=== PATIENT | male | born 1940 | race Caucasian/White ===

== ENCOUNTER 2017-12-30 13:30 | Outpatient (RCR) | payer MEDICARE, SELFPAY ==
--- NOTE | 2017-11-30 15:56 | PTTR_ITS ---
DATE: 11/30/17 OBJECTIVE: KX applied to all codes Completed cardiovascular conditioning with primary therapist. Vitals taken at start and end of treatment session. See flow sheet for specifics. * X Neuro Re-education - (51111 x2): Continued pt's balance training program. Pt is quite fatigued after cardio training today; modified balance activities according to pt tolerance. Pt requires min assist during static stance without upper extremity support. Pt requires CGA and UEx1 for dynamic stance. Please see flow sheet for specifics. Direct treatment time: 25 minutes Total treatment time: 40 minutes
--- NOTE | 2017-12-02 15:38 | PTTR_ITS ---
DATE: 12/02/17 SUBJECTIVE: Amandeep states that he was very tired after his last session. He does notice his endurance improving, however. Compliant with HEP: x Yes No OBJECTIVE: * x Neuro Re-education - (88852 x3): Patient was instructed in a progressed balance retraining program. His initial BP was 161/106; began with light cardiovascular activity with TM walking, and pt's BP comes down to 150/90. Resumed his balance program, reducing rest periods and working on sustained closed chain activities. He demonstrates obvious fatigue, but overall tolerates well. He does require min A at the trunk during standing trunk rotation on Airex pads, and CG during static and dynamic balance activities. Full progra can be found noted on flow sheet. Direct treatment time: 45 minutes Total treatment time: 45 minutes
--- NOTE | 2017-12-06 13:50 | PTTR_ITS ---
DATE: 12/06/17 OBJECTIVE: Therapeutic procedures (15133g9). * X Provided skilled instruction in proper exercise performance: Pt completed static and dynamic balance activities with CGAx1 and pt utilized the bar when needed. Pt completed LE strengthening as per flow sheet. Pt completed the treadmill/Nu Step for cardio. Pt did require frequent rest periods due to fatigue. * X Other: Vitals were taken please see flow sheet for specifics. Direct treatment time: 45 Total treatment time: 60
--- NOTE | 2017-12-08 13:50 | PTTR_ITS ---
DATE: 12/08/17 SUBJECTIVE: Pt reports that he feels weak today. He states that he did some work this am but he is not sure why he feels so weak today. OBJECTIVE: KX applied to all codes Therapeutic procedures (63996u8). * X Provided skilled instruction in proper exercise performance: Pt completed static and dynamic balance activities in the // bars utilizing the bar with one hand with CGAx1. Pt completed open and closed chain LE strengthening and cardio on the treadmill/ Nu Step. Pt did require frequent rest periods due to fatigue. * X Other: Pt's vitals were taken please see flow sheet for specifics. Direct treatment time: 45 Total treatment time: 60
--- NOTE | 2017-12-13 07:50 | NT_ITS ---
12/13/17 Patient can today's appt stating he fell yesterday and sprained his ankle. He is waiting for a call back from his doctor. /sunitha
--- NOTE | 2017-12-13 13:46 | NT_ITS ---
12/13/17 Pt called to cancel his PT appointment today due to falling and spraining his ankle.
--- NOTE | 2017-12-15 14:30 | NT_ITS ---
12/15/17 Can today's appt SS/dl
--- NOTE | 2017-12-20 13:30 | PN_ITS ---
DATE: December 20, 2017 REFERRING: Dhaval Lou MD REFERRING PROVIDER DIAGNOSIS:: R sided weakness, s/p CVA PHYSICAL THERAPY DIAGNOSIS: Decreased activity tolerance, decreased balance, s/ p CVA REPORTING PERIOD (for progress note and discharge note only): [] SUBJECTIVE: Amandeep presents to the clinic after a 1 week hiatus. He states that he suffered a fall on Tuesday12/13/17. 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 He initially had quite severe ankle pain although was able to independently get himself back home. He saw his PCP yesterday for continued pain and swelling in the R ankle, they recommended that he have it checked here and resume PT services. He states that his pain seems to be improving each day, he has resolving bruising through the foot and ankle. He is unable to localize any specific area of pain stating it is the entire foot and ankle that hurt. He states that he has pain both with weight bearing and at rest with no real difference between the two. He has not been doing anything to manage his symptoms along the lines of icing, etc. . . OBJECTIVE: Posture: Patient demonstrates equalized weight bearing R to L. He continues to demonstrate rounded shoulder, forward head posturing with flattened lumbar lordosis and wide base of support. Gait: Unchanged from baseline, continues to demonstrate a (+) Trendelenburg sign R greater than L. He uses a cane in the L UE. Palpation: Patient has resolving bruising noted throughout the dorsum of the foot and lateral R ankle. He has 1+ pitting edema noted laterally as well as diffuse non-pitting edema throughout the dorsum of the foot and medial ankle. Mild increased warmth vs the L side. Joint accessory motion: Shows gross hypomobility at the R talocrural joint. Mobility between the metatarsals is normal and non-pain producing. Special Tests (indicate): (-) anterior drawer test. He is able to single leg stand on the R without pain reproduction, although requirement of UE support per his baseline. ROM: Dorsiflexion allows 10 degrees R actively, plantar flexion allows 40 degrees although without pain reproduction, has about a 30 degree arc of motion for in/eversion, comparable to his L side. Treatment: Today's session consisted of a re-evaluation followed by instruction in a home exercise program for edema management and early ROM. Re-evaluation charge (KX) modifier to all charges. Treatment time: 20 mins ASSESSMENT: Patient returns for PT intervention after brief hiatus after a fall in the community. He presents with acute ankle pain which has been resolving for the last several days. He is having continued swelling and discomfort although gait mechanics are relatively unchanged and pain is not exacerbated by weight bearing. I anticipate that with some edema management and reintroduction of ROM activities he will tolerate return to PT intervention nicely in the next week or so. I am going to have him work on contrast baths and some gentle ROM for the next week and follow up at that point for introduction of weight bearing activities. G-Codes (add modifier after appropriate code): Patient's demonstrating continued functional limitation is in the category of: * X Mobility - walking and moving around : [id number] Based on last mini best test score of 61% with minor set back due to injury. Projected goal: [id number] KX modifier to be utilized as justified by above documentation for necessity of continued Physical Therapy intervention to attend to functional deficits which have not been fully remediated as they approach their Medicare cap. ST: Patient able to tolerate introduction of strengthening, conditioning program without pain symptoms (MET) 2: Improve overall function as indicated by LEFS score indicating less than 50 % deficit (Progressing towards) LT: Reduce fall risk with mini best test scoring less than 19% deficit (Not Met) . 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 SS/dl
--- NOTE | 2017-12-27 14:00 | PTTR_ITS ---
DATE: 12/27/17 SUBJECTIVE: Amandeep noting that his ankle has been feeling a little bit better. It continues to be sore and pt. states he's fatigued very quickly, even with light walking around his yard and shop. OBJECTIVE: Pt. has decreased swelling through the right ankle and he's utilizing a single point cane in the left UE. KX applied to all codes x * x Neuro Re-education - (83338 x2): Pt. instructed in a modified and light balance program as noted on his flow sheet. He is able to single leg stance on the right side without discomfort noted. He does require UE assist to the parallel bars. He performs small base of support activities, dynamic gait activities within the parallel bars, not utilizing any compliant surfaces today due to recent ankle sprain. Pt. requires multiple rest breaks throughout our session due to fatigue. He ends with 3 minutes of NuStep cycling. Vitals are taken pre and post session; post exercise today he has a BP of 159/107, HR 69. I do have patient sit and rest for a few minutes; he does note being quite tired. After 3 minutes I retake his BP reading 171/119, HR 60. No changes in his symptoms. Again, have him wait another 5 minutes and a third BP reading of 162/104, HR 59. Pt. is ready to leave the clinic. He does know that if he is feeling any symptoms he needs to call his doctor or go the ER. I advise him that he may want to contact his primary care again regarding this. Direct treatment time: 30 min. with an additional 20 minutes of BP readings and resting. LB/kf
--- NOTE | 2017-12-30 14:27 | PTTR_ITS ---
DATE: 12/30/17 SUBJECTIVE: Amandeep states that his ankle is bothering him today. He mowed the lawn yesterday on his rider, and states that using the gas pedal seemed to help his ankle a bit. He's not sure why it's bothering today. OBJECTIVE: KX applied to all codes: x Therapeutic procedures (06563p9). * x HEP review: Progressed to include theraband resisted ankle PREs with green band. Patient was provided with handout for home completion. * x See flow sheet: * x Provided skilled instruction in proper exercise performance: Patient requires CG throughout all closed chain and balance activities. He required frequent rest periods, and BP was monitored closely throughout (all noted on flowsheet) Direct treatment time: 30 minutes Total treatment time: additional time spent with Vanessa Mcqueen PTA
--- NOTE | 2017-12-30 14:38 | PTTR_ITS ---
DATE: 12/30/17 OBJECTIVE: Co-treatment with Sneha Herrera DPT. Please refer to her note for specifics. KX applied to all codes X Therapeutic procedures (65781u5)(KX). Pt performs modified therex program as noted on his flow sheet for light LE strengthening. Attempt further standing strengthening although pt is complaining of significant right ankle pain and we defer. Defer Nustep and other cardiovascular activity due to elevated blood pressure at 151/105. Had pt sit for awhile and repeat blood pressure and the reading was the same. Pt not symptomatic although has pain in the right ankle and is fatigued. Defer further therex. See flow sheet for all details. Direct treatment time: 20 minutes Total treatment time: 20 minutes Vanessa Mcqueen PTA
== END 2017-12-30 23:59 | disposition home or self-care (01) ==
LOC: PT 13:30
PROVIDERS: PCP Internal Medicine; Referring Provider Internal Medicine; Visit Provider Internal Medicine
DX: I69.359 Hemiplegia and hemiparesis following cerebral infarction affecting unspecified side (principal); R26.89 Other abnormalities of gait and mobility
CPT/HCPCS: 97110; 97112; 97164; G8978

== ENCOUNTER 2018-05-04 14:18 | Outpatient (REF) | payer MEDICARE, SELFPAY ==
[2018-05-04 21:11] LABS: Abs Immature Grans 0.01 k/cumm (0.0-0.09); Absolute Basophil Count 0.03 k/cumm (0.0-0.2); Absolute Eosinophil Count 0.16 k/cumm (0.0-0.7); Absolute Lymphocyte Count 0.95 k/cumm (1.2-3.4); Absolute Monocyte Count 0.64 k/cumm (0.11-0.7); Absolute Neutrophil Count 3.47 k/cumm (1.2-6.7); Basophils % 0.6; HCT 48.9 % (40.0-50.0); HGB 16.5 g/dL (13.5-17.5); Immature Grans % 0.2; Lymphocytes % 18.1; Mean Corp. HGB Concentration 33.7 g/dL (32.0-36.0); Mean Corpuscular Hemoglobin 31.7 pg (27.0-33.0); Mean Corpuscular Volume 93.9 fL (80-95); Mean Platelet Volume 11.7 fL (8.0-11.0); Monocytes % 12.2; Neutrophils % 65.9; Platelet Count 187 x1000/uL (130-400); RBC 5.21 m/cumm (4.50-6.00); RBC Distribution Width 14.9 % (11.8-14.1); White Blood Cell Count 5.26 k/cumm (4.4-10.8)
[2018-05-04 21:32] LABS: ALT 24 U/L (12-78); AST 22 U/L (15-37); Albumin 3.9 g/dL (3.4-5.0); Alkaline Phosphatase 81 U/L (46-116); Anion Gap 10.8 mmol/L (3-11); BUN 23 mg/dL (7-18); Bilirubin, Total 1.3 mg/dL (0.2-1.0); CO2 25.2 mmol/L (21.0-32.0); CREATININE 1.37 mg/dL (0.70-1.30); Calcium 9.2 mg/dL (8.5-10.1); Chloride 103 mmol/L (98-107); Estimated GFR 50.52 (mL/min/1.73m2); Glucose 95 mg/dL (70-100); Potassium 4.4 mmol/L (3.5-5.1); Sodium 139 mmol/L (136-145); TSH (W/Ref FT4) 2.23 uIU/mL (0.358-3.74); Total Protein 7.5 g/dL (6.4-8.2)
== END 2018-05-04 14:38 ==
LOC: NCHCN 14:18
PROVIDERS: PCP Internal Medicine; Visit Provider Internal Medicine
DX: R42 Dizziness and giddiness (principal); E03.9 Hypothyroidism, unspecified; I47.2 Ventricular tachycardia; F43.0 Acute stress reaction; I10 Essential (primary) hypertension
CPT/HCPCS: 80053; 84443; 85025

== ENCOUNTER 2018-09-26 15:32 | Outpatient (REF) | payer MEDICARE, SELFPAY ==
[2018-09-26 21:07] LABS: HCT 47.1 % (40.0-50.0); HGB 15.5 g/dL (13.5-17.5); Mean Corp. HGB Concentration 32.9 g/dL (32.0-36.0); Mean Corpuscular Hemoglobin 30.9 pg (27.0-33.0); Mean Platelet Volume 11.7 fL (8.0-11.0); Platelet Count 205 x1000/uL (130-400); RBC 5.01 m/cumm (4.50-6.00); RBC Distribution Width 14.9 % (11.8-14.1); White Blood Cell Count 4.83 k/cumm (4.4-10.8)
[2018-09-26 21:36] LABS: ALT 26 U/L (12-78); AST 17 U/L (15-37); Albumin 3.7 g/dL (3.4-5.0); Alkaline Phosphatase 69 U/L (46-116); Anion Gap 9.9 mmol/L (3-11); BUN 29 mg/dL (7-18); Bilirubin, Total 0.8 mg/dL (0.2-1.0); CO2 26.1 mmol/L (21.0-32.0); CREATININE 1.52 mg/dL (0.70-1.30); Calcium 8.9 mg/dL (8.5-10.1); Chloride 106 mmol/L (98-107); Creatine Kinase 182 U/L (39-308); Estimated GFR 44.69 (mL/min/1.73m2); Glucose 112 mg/dL (70-100); Lipase 146 U/L (73-393); NT-proBNP 193 pg/mL; Potassium 4.6 mmol/L (3.5-5.1); Sodium 142 mmol/L (136-145); TSH (W/Ref FT4) 2.14 uIU/mL (0.358-3.74); Total Protein 7.2 g/dL (6.4-8.2)
== END 2018-09-26 15:52 ==
LOC: NCHCN 15:32
PROVIDERS: PCP Internal Medicine; Visit Provider Internal Medicine
DX: R06.02 Shortness of breath (principal); R53.1 Weakness; R07.9 Chest pain, unspecified; R10.9 Unspecified abdominal pain
CPT/HCPCS: 80053; 82550; 83690; 85027; 83880; 84443

== ENCOUNTER 2018-09-27 11:46 | Outpatient (CLI) | payer MEDICARE, SELFPAY ==
--- NOTE | 2018-09-27 15:14 | DI.RAD_ITS ---
SYMPTOMS/DIAGNOSIS: SHORTNESS OF BREATH, R06.02, FATIGUE, R53.83, COUGH, R05, WEAKNESS X 10 DAYS PA AND LATERAL CHEST: The lungs are free of infiltrate. There is no pleural effusion. The heart is enlarged, unfolding and ectasia of the thoracic aorta are demonstrated. The hilar structures, mediastinum and tracheal air column are intact. SUMMARY: No evidence of acute cardiopulmonary disease. Cardiac enlargement is demonstrated.
== END 2018-09-27 12:06 ==
PROVIDERS: PCP Internal Medicine; Visit Provider Internal Medicine
DX: R06.02 Shortness of breath (principal); R53.83 Other fatigue; R05 Cough; I51.7 Cardiomegaly
CPT/HCPCS: 71046

== ENCOUNTER 2018-12-23 11:12 | Outpatient (CLI) | payer MEDICARE, SELFPAY ==
[2018-12-23 13:07] LABS: Vitamin B12 262 pg/mL (193-986)
[2018-12-24 08:37] LABS: Vitamin D 25 Total 16.4 ng/ml (30-100)
== END 2018-12-23 11:32 ==
PROVIDERS: PCP Internal Medicine; Visit Provider Internal Medicine Sleep Medicine
DX: E55.9 Vitamin D deficiency, unspecified (principal)
CPT/HCPCS: 36415; 82306; 82607

== ENCOUNTER 2019-06-30 21:45 | Inpatient (IN) | payer MEDICARE, SELFPAY ==
[2019-06-30] VITALS (22 sets, daily range): BP systolic 145–187; BP diastolic 81–125; PULSE 51–113; RESP 14–31; TEMP 36.6; O2SAT 84–96
--- NOTE | 2019-06-30 21:30 | DI.CT_ITS ---
EXAM: CT BRAIN NECK CTA CLINICAL HISTORY: LEFT-SIDED STROKE-LIKE SYMPTOMS TECHNIQUE: Axial CT angiography was performed with multi-slice acquisition and multi-planar and/or 3 D reconstructions. COMPARISON: MRI - BRAIN WO CONTRAST from 09/06/2016 HEAD WITHOUT STROKE PROTOCOL from 09/06/2016 MRA NECK WO from 09/06/2016 MPI RESTING AND STRESS from 10/27/2016 FINDINGS: Noncontrast Head CT: No intracranial hemorrhage is seen. There is a large area of decreased attenuat ion in the right middle cerebral artery distribution involving the right parietal lobe and a small po rtion of the right temporal lobe. Findings are consistent with a subacute infarct. Old infarct is a gain noted in the posterior left parietal region as well as left cerebellum. There are prominent whi te matter changes of small vessel disease. The ventricles are unchanged in size and configuration. Th ere is no evidence of skull fracture. CT Angiography of the Neck: Both common carotid arteries are tortuous and deviate medially. There is atherosclerotic plaque at the common carotid bulb and proximal internal carotid arteries. There is no significant stenosis, evidence of dissection or occlusion. The vertebral arteries appear patent. CT Angiography of the Head: The distal internal carotid arteries show heavy calcification and narrowi ng of the supraclinoid segment bilaterally, right greater than left. The middle and posterior cerebr al arteries show diminished caliber throughout. The posterior cerebral arteries also show reduced di ameter and areas of focal severe stenosis. The anterior cerebral arteries appear patent. Distal mike tebral arteries as well as basilar artery show heavy calcification and irregularity and significantly reduced diameter. IMPRESSION: 1. Large subacute infarct in the right middle cerebral artery distribution. 2. Severe atherosclerotic changes of the intracranial vasculature showing multifocal areas of severe stenosis to near occlusion involving the middle cerebral arteries, distal vertebral and basilar marlen ashley as well as posterior cerebral arteries.
--- NOTE | 2019-06-30 21:45 | DI.RAD_ITS ---
EXAM: XR PORTABLE CHEST AP INDICATION: stroke like symptoms. COMPARISON: XR CHEST 2V PA LATERAL from 09/27/2018 TECHNIQUE: 2D digital imaging was performed. FINDINGS: The heart is enlarged. The aorta is tortuous. Leads overlie the chest. No infiltrate, effusion or pulmonary edema is seen. IMPRESSION: Cardiomegaly. No acute abnormality. DATA REPOSITORY: RADIATION DOSE DELIVERED:
--- NOTE | 2019-06-30 21:56 | ED.GENADUL_ITS ---
Discharge Plan Disposition Patient Disposition: [facility] INPATIENT Discharge Details Chief Complaint: CVA/TIA Clinical Impression: Stroke, Rhabdomyolysis Primary Care Provider: Tristen Lou ED Provider: Joe Julien Home Meds and New Rx's Prescriptions: No Action levothyroxine 175 MCG tablet 175 mcg PO DAILY@0730 RF: 0 carvedilol 6.25 MG tablet 12.5 mg PO BID RF: 0 potassium citrate 10 MEQ tablet extended release 1 tab PO HS RF: 0 allopurinol 300 MG tablet 300 mg PO DAILY RF: 0 polyethylene glycol 3350 17 GM powder in packet 17 gm PO DAILY PRN PRN (Reason: Constipation) RF: 0 aspirin 325 MG tablet 325 mg PO DAILY RF: 0 atorvastatin 40 MG tablet 40 mg PO DAILY Qty: 30 RF: 0 irbesartan 150 MG tablet 75 mg PO DAILY Qty: 0 RF: 0 diphenhydramine-acetaminophen [Tylenol PM Extra Strength] 25-500 mg Tablet 1 tab PO QHS PRNRF: 0 Medical Decision Making Upon my evaluation, this patient had a high probability of imminent or life- threatening deterioration, which required my direct attention, intervention, and personal management. I have personally provided 45 minutes of critical care time exclusive of time spent on separately billable procedures. Time includes review of laboratory data, radiology results, discussion with consultants, and monitoring for potential decompensation. Interventions were performed as documented. 78-year-old male with a past medical history of previous stroke with right-sided deficits, known A. fib, thyroid disease, and per family history of ventricular septal defect, however no evidence of this on the echocardiogram on her records, he presents today via EMS for strokelike symptoms. He is unable to report any significant history. History is obtained from family and EMS. Allegedly patient was seen yesterday by caregiver at 2 PM, which was greater than 28 hours ago. At that time he was fine functional. Then today when family went to the house he was noted to be found on the ground, incontinent of urine and feces, with notable deficits unable to get up. On EMS arrival he noted significant left-sided deficits, blood sugar normal, he was tachycardic in A. fib, blood pressure was hypertensive. He was brought to the ER for further management. Patient has no complaints at this time, he does respond to some questions. He denies chest pain, shortness of breath, fever, chills, or other complaints. Patient is currently on no blood thinners. Physical exam demonstrates notable left-sided deficits, mild slurred speech, upward Babinski on the left. Notable left-sided visual deficits. Exam is otherwise relatively unremarkable for evidence of significant concerning trauma. Per family the patient has a history of a VSD but I cannot appreciate this finding on review of records. Differential certainly highest for stroke. We will send for an emergent CT CTA. We will gently rehydrate, evaluate for rhabdo, and currently manage. Records indicate that the patient is DNR/DNI. We will further differentiate this with family. NIH abnormalities: Unable to answer month and age, partial left-sided gaze palsy, partial hemianopia, minor left-sided facial palsy, notable left arm deficit, notable left leg deficit, mild aphasia, mild to moderate dysarthria, left-sided extinction. NIH of 15 11:28 PM Reassessment the patient is actually showing some mild improvements. I feel this is likely secondary to rehydration rather than actual improvement of stroke. Neurologic deficits seem to remain in in place, however his mental status certainly becoming more alert at this time. CT scan show evidence of notable expected right-sided infarct in the right temporal parietal and occipital lobes. This correlates well with his symptomatology. There does appear to be occlusion of the proximal inferior M1 segment of the right MCA as well, compatible with known acute right MCA territory infarct. There is multiple other smaller occlusions and disease throughout. I did contact [facility] and discussed the case with Dr. Nicole. After discussing the patient's neurologic findings, the last known well greater than 24 hours ago, and the CT scan findings, Dr. Nicole recommends against intravascular intervention. He feels that the patient would best be suited for admission here for further management. He does recommend giving full dose aspirin, recommends against heparin therapy at this time. We will contact the hospitalist Dr. Contreras for admission. I discussed all of this with the patient and the patient's family, they agree with the current plan. No additional questions at this time. And after a long discussion family states that the patient has expr essed that he would like to be full code multiple times in the past. We cannot find a COLST form describing his CODE STATUS is DNR/DNI. Will defer to full code at this time. Also of note the patient's laboratory work-up does show a transient elevation in his troponin at 0.07, he does have notable elevation in his CPK at 2300, concerning for rhabdo. We will continue to hydrate. He is producing urine. Will monitor urine output closely. 11:36 PM Spoke with hospitalist Dr. Contreras, he agrees to the assessment and plan. Patient will be admitted for further management. I have extensively reviewed the treatment plan with the patient. I have addressed all patient concerns at this time. I have also discussed the plan with the admitting physician and they agree with the current assessment and plan and have agreed to assume responsibility for the patient. All parties demonstrate verbal understanding and agreement with our assessment and plan at this time. EKG 22: 17 Rate 101, MI 222, QTc 425, QRS 98, sinus tachycardia with first-degree AV block, multiple PVCs, no significant ST elevations or depressions, less than 1 mm elevation in lead III. No reciprocal depressions. Minimal subtle less than a millimeter depression in aVL. No evidence of STEMI FINDINGS: Lungs: Unremarkable. No consolidation. Pleural space: Unremarkable. No pleural effusion. No pneumothorax. Heart/Mediastinum: Prominent mediastinum, likely due to portable technique and suboptimal inspiration. Borderline heart size. Vasculature: Atherosclerotic aortic arch. Tortuous aorta. Bones/joints: Degenerative changes within acromioclavicular joints and thoracic spine. IMPRESSION: No large infiltrates or effusions. Thank you for allowing us to participate in the care of your patient. Dictated and Authenticated by: Carlitos Holbrook MD 06/30/2019 10:55 PM Eastern Time ([place] & [place]) HPI General Date/Time Provider Initiated Documentation: 06/30/19 22:20 . HPI Narrative: 78-year-old male with a past medical history of previous stroke with right-sided deficits, known A. fib, thyroid disease, and per family history of ventricular septal defect, however no evidence of this on the echocardiogram on her records, he presents today via EMS for strokelike symptoms. He is unable to report any significant history. History is obtained from family and EMS. Allegedly patient was seen yesterday by caregiver at 2 PM, which was greater than 28 hours ago. At that time he was fine functional. Then today when family went to the house he was noted to be found on the ground, incontinent of urine and feces, with notable deficits unable to get up. On EMS arrival he noted significant left-sided deficits, blood sugar normal, he was tachycardic in A. fib, blood pressure was hypertensive. He was brought to the ER for further management. Patient has no complaints at this time, he does respond to some questions. He denies chest pain, shortness of breath, fever, chills, or other complaints. Patient is currently on no blood thinners. Related Data Home Medications Medication Instructions Recorded Confirmed allopurinol 300 mg PO DAILY 09/06/16 06/30/19 carvedilol 12.5 mg PO BID 09/06/16 09/06/16 levothyroxine 175 mcg PO DAILY@0730 09/06/16 06/30/19 potassium citrate 1 tab PO HS 09/06/16 06/30/19 aspirin 325 mg PO DAILY tab 09/08/16 06/30/19 atorvastatin 40 mg PO DAILY #30 tablet 09/08/16 irbesartan 75 mg PO DAILY #0 09/08/16 06/30/19 polyethylene glycol 3350 17 gm PO DAILY PRN PRN packet 09/08/16 06/30/19 diphenhydramine-acetaminophen 1 tab PO QHS PRN 06/30/19 06/30/19 [Tylenol PM Extra Strength] Previous Rx's Medication Instructions Recorded aspirin 325 mg PO DAILY tab 09/08/16 atorvastatin 40 mg PO DAILY #30 tablet 09/08/16 irbesartan 75 mg PO DAILY #0 09/08/16 polyethylene glycol 3350 17 gm PO DAILY PRN PRN packet 09/08/16 Allergies Allergy/AdvReac Type Severity Reaction Status Date / Time amlodipine Allergy Unverified 06/30/19 22:55 enalapril Allergy Unverified 06/30/19 22:53 hydrochlorothiazide Allergy Unverified 06/30/19 22:54 [From Hyzaar] losartan [From Hyzaar] Allergy Unverified 06/30/19 22:54 meperidine [From Demerol] AdvReac Severe Other (See Unverified 06/30/19 22:16 Comment) General Stated Complaint: CVA/TIA EDI: 2 Review of Systems All systems reviewed & are unremarkable except as noted in HPI and below [facility] Medical History (Updated 06/30/19 @ 23:47 by Calvin Contreras) Stroke (Chronic) Social History Smoking/Tobacco Use Status: Never Alcohol Intake: current Alcohol Intake frequency: a few times a month Alcohol type: beer Substance use type: does not use Do you feel safe in your relationship?: Yes Exam Narrative Exam Narrative: 1.Const: Obese, incontinent of stool and urine 2.Eyes: PERRL, no conjunctival injection, and symmetrical lids. Notable visual deficit on left side. 3.ENT: Atraumatic external nose and ears. Moist MM. Neck: Symmetric, trachea midline, No thyromegaly. There is no evidence of raccoon eyes, hill sign, CSF rhinorrhea, mastoid tenderness, cranial crepitus, hemotympanum, exophthalmos, or hyphema. Patient demonstrates intact dentition with no signs of tooth avulsion or fracture, no signs of jaw deformity, no evidence of a LeFort's fracture, with an intact palate, nose and orbital region. There is no evidence of a nasal septal hematoma. No proptosis. Jaw closes symmetrically. Airway is clear. 4.CVS: +S1/S2, No murmurs or gallops. Peripheral pulses 2+ and equal in all extremities. Brisk capillary refill in all extremities. Regular rate and rhythm, Normal s1 and s2. No murmurs, carotid bruits, rubs, or gallops. Radial pulses 2+ bilaterally and symmetric. Dorsalis pedis pulses 2+ bilaterally and symmetric. 2+ capillary refill. No evidence of distant heart sounds. No extremity edema. No evidence of gross hemorrhage. 5.RESP: Unlabored respiratory effort. Clear to auscultation bilaterally. No wheezes rales or rhonchi airway clear, no obstructions. No abrasions or ecchymosis. Chest movement symmetric with respirations. No chest wall tenderness. Trachea midline. No crepitus. No step offs. No paradoxical movements. Lungs are clear to auscultation bilaterally. No rales, rhonchi, wheezing or stridor. Breath sound symmetric. No Sucking chest wounds. No clinical evidence of significant chest trauma. 6.GI: Soft, Nontender/Nondistended, No hepatosplenomegaly. No guarding or rebound. Uncircumcised male, continent of stool and urine. No genital tenderness. 7.MSK: Normocephalic/Atraumatic, Extremities w/o deformity or ttp. No cyanosis or clubbing. Mild bruising on the left lower back and hip. No tenderness. Pelvis stable to compression. 8.Skin: Warm, Dry. No rashes or lesions. 9.Neuro: Notable left-sided neglect and visual deficits. Unable to significantly quantify secondary to current mental state. Upper extremities demonstrate 5-5 strength for the right upper extremity able to hold it up for greater than 5 seconds with no significant drift. Demonstrates 3 out of 5 strength of the right lower extremity and able to hold it up for 3 to 4 seconds. Sensation appears intact. Good plumbing designer strength. Left upper extremity demonstrates near total paralysis with 1 out of 5 strength, unable to plumbing designer. He is able to slightly move the left upper extremity. Left lower extremity demonstrates upward Babinski, notable weakness, he is able to slightly move his toes and leg and just small movements. Speech pattern is deficient with slight slurring of words. Unable to perform any other significant neurologic exam testing secondary to current state. GCS is 15 NIH abnormalities: Unable to answer month and age, partial left-sided gaze palsy, partial hemianopia, minor left-sided facial palsy, notable left arm deficit, notable left leg deficit, mild aphasia, mild to moderate dysarthria, left-sided extinction. NIH of 15 10.Psych: (AAO) x1 Course Vital Signs Vital signs: Vital Signs Temperature 36.6 C 06/30/19 21:49 Pulse 111 H 06/30/19 21:49 Respiratory Rate 06/30/19 21:49 Blood Pressure 149/104 H 06/30/19 21:49 Pulse Oximetry 96 06/30/19 21:49 Temperature 36.6 C 06/30/19 21:49 Pulse 111 H 06/30/19 21:49 Respiratory Rate 06/30/19 21:49 Blood Pressure 149/104 H 06/30/19 21:49 Pulse Oximetry 96 06/30/19 21:49 Pain Level 2 06/30/19 21:49 Lab/Test Results Lab/Test Results: 06/30/19 21:53 Blood Blood Culture - Pending 06/30/19 21:53 Blood Blood Culture - Pending
[2019-06-30 22:06] LABS: Abs Immature Grans 0.02 k/cumm (0.0-0.09); Absolute Basophil Count 0.02 k/cumm (0.0-0.2); Absolute Eosinophil Count 0.06 k/cumm (0.0-0.7); Absolute Monocyte Count 0.64 k/cumm (0.11-0.7); Absolute Neutrophil Count 10.06 k/cumm (1.2-6.7); Basophils % 0.2; Eosinophils % 0.5; HCT 51.7 % (40.0-50.0); HGB 17.6 g/dL (13.5-17.5); Immature Grans % 0.2 %; Lymphocytes % 6.9; Mean Corpuscular Hemoglobin 31.2 pg (27.0-33.0); Mean Corpuscular Volume 91.7 fL (80-95); Mean Platelet Volume 11.9 fL (8.0-11.0); Monocytes % 5.5; Neutrophils % 86.7; Platelet Count 275 x1000/uL (130-400); RBC 5.64 m/cumm (4.50-6.00); RBC Distribution Width 15.3 % (11.8-14.1)
[2019-06-30] MEDS: Omnipaque 350 MG/ML 100 ML BTL IJ (22:19)
[2019-06-30 22:25] LABS: INR 1.1 (0.9-1.1); PTT Activated 24.6 sec (21.0-31.4); Prothrombin Time 11.3 sec (9.3-11.0)
[2019-06-30 22:32] LABS: ALT 44 U/L (16-63); AST 73 U/L (15-37); Albumin 4.3 g/dL (3.4-5.0); Alkaline Phosphatase 90 U/L (46-116); Anion Gap 14.5 mmol/L (3-11); BUN 34 mg/dL (7-18); Bilirubin, Total 2.5 mg/dL (0.2-1.0); CO2 23.5 mmol/L (21.0-32.0); CREATININE 1.69 mg/dL (0.70-1.30); Calcium 9.6 mg/dL (8.5-10.1); Chloride 104 mmol/L (98-107); Estimated GFR 39.55 (mL/min/1.73m2); Glucose 139 mg/dL (74-106); NT-proBNP 974 pg/mL (<300); Potassium 4.5 mmol/L (3.5-5.1); Sodium 142 mmol/L (136-145); TSH (W/Ref FT4) 1.96 uIU/mL (0.36-3.74); Total Protein 8.8 g/dL (6.4-8.2)
[2019-06-30] MEDS: Normal Saline 500 ML IV (22:34)
[2019-06-30 22:37] LABS: Creatine Kinase 2300 U/L (39-308); Troponin I 0.07 ng/Ml (<0.06)
[2019-06-30 22:49] LABS: Bilirubin Small (Negative); Blood Small (Negative); Clarity Clear (Clear); Glucose Negative (Negative); Ketones Trace mg/dL (Negative); Leukocyte Esterase Negative (Negative); Nitrite Negative (Negative); Specific Gravity >= 1.030 (1.005-1.025); Urobilinogen 0.2 EU/dL (Up TO 0.2); pH 5.5 (5-8)
[2019-06-30] MEDS: Normal Saline 1,000 ML 1000 ML IV (22:49)
[2019-06-30 22:55] LABS: Bacteria Negative HPF (Negative); C & S Indicated? No; Casts Negative LPF (Negative); Crystals Negative HPF (Negative); Epithelial Cells Rare HPF (Negative); Mucus Moderate (Negative); RBC 0-2 HPF (0-2)
--- NOTE | 2019-06-30 22:55 | DI.VRAD_ITS ---
PROCEDURE INFORMATION: Exam: XR Chest, 1 View Exam date and time: 06/30/2019 10:23 PM Age: 78 years old Clinical indication: Other: Stroke like symptoms TECHNIQUE: Imaging protocol: XR of the chest Views: 1 view. COMPARISON: No relevant prior studies available. FINDINGS: Lungs: Unremarkable. No consolidation. Pleural space: Unremarkable. No pleural effusion. No pneumothorax. Heart/Mediastinum: Prominent mediastinum, likely due to portable technique and suboptimal inspiration. Borderline heart size. Vasculature: Atherosclerotic aortic arch. Tortuous aorta. Bones/joints: Degenerative changes within acromioclavicular joints and thoracic spine. IMPRESSION: No large infiltrates or effusions. Dictated and Authenticated by: Carlitos Holbrook MD. Ordering:PIA Diaz MD
[2019-06-30 23:10] LABS: BE (Venous) -3.1 mmol/L (-3-3); HCO3 (Venous) 22 mmol/L (22-28); O2 Sat (Venous) 68 % (70-80); TCO2 (Venous) 19 mmol/L (22-29); pCO2 (Venous) 38 mm/Hg (34-47); pH (Venous) 7.38 (7.35-7.45); pO2 (Venous) 36 mm/Hg (28-44)
[2019-06-30 23:14] LABS: Lactate 2.4 mmol/L (0.6-1.4)
--- NOTE | 2019-06-30 23:21 | DI.VRAD_ITS ---
PROCEDURE INFORMATION: Exam: CT Angiography Head With Contrast Exam date and time: 06/30/2019 10:03 PM Age: 78 years old Clinical indication: Other: Left-sided stroke like symptoms; Patient HX: Left sided stroke like symptoms TECHNIQUE: Imaging protocol: Computed tomography angiography of the head with intravenous contrast. 3D rendering: MIP and/or 3D reconstructed images were created by the technologist. COMPARISON: CT HEAD WITHOUT STROKE PROTOCOL 09/06/2016 10:09 AM FINDINGS: Right internal carotid artery: Extensive atherosclerotic calcifications with narrowing of the supraclinoid segment. No aneurysm. Right anterior cerebral artery: Unremarkable. No occlusion or significant stenosis. No aneurysm. Right middle cerebral artery: There is complete occlusion of the inferior M2 segment of the right MCA (image 538, series 12). Right posterior cerebral artery: There is short segment occlusion of the P2 segment of the right posterior cerebral artery (image 518, series 12). There is a origin of the right posterior cerebral artery. No aneurysm. Right vertebral artery: Diffuse atherosclerotic calcification with multifocal narrowing. No aneurysm. Left internal carotid artery: Extensive atherosclerotic calcification is noted. Intracranial segment is patent with no significant stenosis. No aneurysm. Left anterior cerebral artery: Unremarkable. No occlusion or significant stenosis. No aneurysm. Left middle cerebral artery: There is high-grade stenosis of the proximal M1 segment of the left MCA. No aneurysm. Left posterior cerebral artery: There is narrowing at the junction of the P1 and P2 segment of the left SENIOR TERADATA DEVELOPER. No aneurysm. Left vertebral artery: There is multifocal occlusion of the left vertebral artery associated with diffuse atherosclerotic calcification. No aneurysm. Basilar artery: The basilar artery is irregular in contour with multifocal high-grade stenoses. No aneurysm. IMPRESSION: 1. Occlusion of the proximal inferior M1 segment of the right MCA, compatible with known acute right MCA territory infarct. 2. Short segment occlusion of the P2 segment of the right [employer]ENIOR TERADATA DEVELOPER. 3. 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 4. 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 5. Atherosclerotic narrowing within the left SENIOR TERADATA DEVELOPER. PROCEDURE INFORMATION: Exam: CT Head Without Contrast Exam date and time: 06/30/2019 10:03 PM Age: 78 years old Clinical indication: Other: Left-sided stroke like symptoms; Patient HX: Left sided stroke like symptoms TECHNIQUE: Imaging protocol: Computed tomography of the head without contrast. Other technique: STROKE PROTOCOL was implemented. COMPARISON: CT HEAD WITHOUT STROKE PROTOCOL 09/06/2016 10:09 AM FINDINGS: Limitations: There is motion artifact, limiting evaluation at the lower aspect of the scan. Brain: There is a large acute infarct involving the right posterior temporal lobe, right parietal lobe and to a lesser extent in the right occipital lobe. There is associated mass effect on the adjacent brain parenchyma without evidence of midline shift. There are patchy regions of hypodensity in the periventricular and subcortical white matter, likely on the basis of chronic microvascular ischemic disease. A remote infarct is seen in the left parietal and left temporal lobes. Ventricles: The ventricles and sulci are prominent in size, which is likely related to global cerebral volume loss. Bones/joints: Unremarkable. No acute fracture. Sinuses: There is mucosal thickening in the left maxillary and bilateral ethmoid sinuses. Mastoid air cells: Visualized mastoid air cells are well aerated. Mastoid air cells: Visualized mastoid air cells are well aerated. Soft tissues: Unremarkable. Vasculature: There are extensive atherosclerotic calcifications at the bilateral carotid siphons. IMPRESSION: 1. Large acute infarct involving the right temporal, parietal and occipital lobes. 2. No acute intracranial hemorrhage or midline shift. ASSESSMENT: ASPECTS ([place] Stroke Program Early CT Score) is 7. PROCEDURE INFORMATION: Exam: CT Angiography Neck With Contrast Exam date and time: 06/30/2019 10:03 PM Age: 78 years old Clinical indication: Other: Left-sided stroke like symptoms; Patient HX: Left sided stroke like symptoms TECHNIQUE: Imaging protocol: Computed tomography angiography of the neck with intravenous contrast. 3D rendering: MIP and/or 3D reconstructed images were created by the technologist. COMPARISON: CT HEAD WITHOUT STROKE PROTOCOL 09/06/2016 10:09 AM FINDINGS: VASCULATURE: Right common carotid artery: There is a retropharyngeal course. No stenosis. No dissection or occlusion. Right internal carotid artery: Atherosclerotic plaque is noted at the bifurcation and proximal internal carotid artery without hemodynamically significant stenosis. No dissection or occlusion. Right external carotid artery: Unremarkable. No occlusion or stenosis of the origin. Right vertebral artery: Unremarkable. No stenosis. No dissection or occlusion. Left common carotid artery: There is a retropharyngeal course. No stenosis. No dissection or occlusion. Left internal carotid artery: Atherosclerotic plaque is noted at the bifurcation and proximal internal carotid artery without hemodynamically significant stenosis. No dissection or occlusion. Left external carotid artery: Unremarkable. No occlusion or stenosis of the origin. Left vertebral artery: Unremarkable. No stenosis. No dissection or occlusion. NECK: Bones/joints: No acute fracture. Soft tissues: Normal. No significant soft tissue swelling. Lungs: A calcified granuloma is seen in the right upper lobe. IMPRESSION: No arterial occlusion or hemodynamically significant stenosis in the neck. No dissection or pseudoaneurysm. COMMENTS: 1. Using NASCET method for measuring degree of carotid artery stenosis: Mild is less than 50% stenosis. Moderate is 50-69% stenosis. Severe is 70-94% stenosis. Near occlusion is 95-99% stenosis. 2. THIS REPORT CONTAINS FINDINGS THAT MAY BE CRITICAL TO PATIENT CARE. The findings were verbally communicated via telephone conference with ALEXSANDER ANN at 10:42 PM EST on 06/30/2019. The findings were acknowledged and understood. Dictated and Authenticated by: Lizbeth Terrell MD. Ordering:PIA Diaz MD
[2019-06-30] MEDS: Normal Saline 1,000 ML 200 ML IV (23:38)
[2019-06-30] MEDS: Aspirin 300 MG SUPP PR (23:41)
--- NOTE | 2019-06-30 23:44 | HPE_ITS ---
Date of service: 06/30/19 Time of Service: 23:45 Assessment and Plan Assessment and plan (1) Stroke: Start date: 06/30/19 Status: Acute Assessment and plan: This is a 78-year-old gentleman who had an acute right MCA thrombotic stroke at home more than a day prior to being found by his family. He also has rhabdomyolysis have been down at home with some inco ntinence of urine and stool showed that he had been on the floor for some time. He has no bruising or complaints of body aches. He denies any headache. He has had some return of his left lower extremity after lower extremity being flaccid upon admission and having some movement against gravity presently. He will have an MRI when available and will need rehabilitation. He is a full code at this time but this needs to be investigated with patient having the status of DNR/DNI previously. He was reported to have possible atrial fibrillation in the field but this is not been manifested in the hospital with cardiac monitoring. He does have frequent unifocal PVCs. He did bump his troponin into the intermediate zone and this has remained stable. This is most likely a secondary event. With the history of PFO we need to consider embolic event with further studies ordered. We will continue cardiac monitoring. His CODE STATUS does need to be confirmed. Qualifiers: CVA mechanism: embolism Laterality of affected vessel: right Precerebral and cerebral artery: middle cerebral artery Qualified Code(s): I63.411 - Cerebral infarction due to embolism of right middle cerebral artery (2) Rhabdomyolysis: Start date: 06/30/19 Status: Acute Assessment and plan: Patient had an elevated CPK upon admission having been on the floor at home for some time. We will continue IV hydration and follow-up CPK is trending clear there is rhabdomyolysis avoid kidney injury. He did have findings elevation in his renal function upon admission. Qualifiers: Encounter type: initial encounter Rhabdomyolysis type: traumatic Qualified Code(s): T79.6XXA - Traumatic ischemia of muscle, initial encounter (3) Essential hypertension: Status: Chronic Assessment and plan: Will continue permissive HTN treatment and reassess as observe with ibersartan beng held. History of Present Illness History of Present Illness Chief Complaint: Left-sided weakness Narrative: This is a 78-year-old gentleman who lives alone and is generally functioning independently who was found at home by his family after greater than a 28-hour p eriod of time of not being checked on by his family. He was down on the floor with left-sided weakness and incontinence of urine and stool. Was brought to the ED for evaluation and was found by CT scan to have a right MCA thrombotic stroke distribution with no hemorrhage. He also had rhabdomyolysis having been down on the floor several hours. He had no injuries and had no complaints of headache or chest pain. The EMS did note a rapid ventricular response of about 160 with probable atrial fibrillation with no history of dysrhythmia in this patient. He was on Coreg in the past and it is possible that the record is not up to date. In the ED he had sinus rhythm with sinus tachycardia and frequent unifocal PVCs which persisted through the night. He did have a slight bump in his troponin which did not change with serial enzymes. The patient is a poor historian but is more awake and alert after IV hydration in the ED. He also is beginning to have some movement in his left arm and leg which was flaccid previously. Patient's family was not present at the time of my exam but were in the ED and stated that the patient was not a DNR/DNI and wanted to be a full code with the patient not able to confirm this discrepancy therefore he remains a Full Code upon admission. Review of Systems Narrative: 13 point review of systems otherwise unrevealing or stable/unobtainable. [facility] Medical History (Updated 07/01/19 @ 07:46 by Calvin Contreras) Essential hypertension (Chronic) Hyperlipidemia (Acute) Hypothyroid (Chronic) RYAN (obstructive sleep apnea) (Chronic) PFO (patent foramen ovale) (Inactive) Stroke (Chronic) Social History Smoking/Tobacco Use Status: Never Alcohol Intake: current Alcohol Intake frequency: a few times a month Alcohol type: beer Substance use type: does not use Do you feel safe in your relationship?: Yes Meds Home Medications and Allergies Home Medications Medication Instructions Recorded Confirmed Type allopurinol 300 mg PO DAILY 09/06/16 06/30/19 History levothyroxine 175 mcg PO DAILY@0730 09/06/16 06/30/19 History potassium citrate 1 tab PO HS 09/06/16 06/30/19 History aspirin 325 mg PO DAILY tab 09/08/16 06/30/19 Rx irbesartan 75 mg PO DAILY #0 09/08/16 06/30/19 Rx polyethylene glycol 3350 17 gm PO DAILY PRN PRN packet 09/08/16 06/30/19 Rx diphenhydramine-acetaminophen 1 tab PO QHS PRN 06/30/19 06/30/19 History [Tylenol PM Extra Strength] Allergies Allergy/AdvReac Type Severity Reaction Status Date / Time amlodipine Allergy Unverified 06/30/19 22:55 enalapril Allergy Unverified 06/30/19 22:53 hydrochlorothiazide Allergy Unverified 06/30/19 22:54 [From Hyzaar] losartan [From Hyzaar] Allergy Unverified 06/30/19 22:54 meperidine [From Demerol] AdvReac Severe Other (See Unverified 06/30/19 22:16 Comment) Exam Narrative Exam Narrative: General: Patient appears appropriate for stated age, obese and in no acute distress though he does have some difficulty speaking being awakened prior to my exam. He is alert and oriented at least to person and place. HEENT: Normocephalic with coarsened facial features and puffiness but no edema, eyes with pupils equal and reactive to light symmetrically, extraocular movement intact and sclera anicteric. Oropharynx with slightly dry oral mucosa. Patient does have CPAP mask in place. External ears normal. Neck: Supple without JVD. No auscultated bruits. Back: Stooped posture without CVA tenderness. Lungs: Clear to auscultation and percussion. Heart: Regularly irregular rhythm with frequent extrasystole and normal rate. No murmurs or gallops appreciated. Abdomen: Obese contour, soft and nontender to palpation with no palpable hepatosplenomegaly. Bowel sounds positive and normoactive in all quadrants. Genitalia/rectal: Exam deferred. Extremities: Nonpitting edema over lower extremities with fair capillary refill and peripheral pulses intact. No cyanosis or clubbing. Mild osteoarthritic brannon nges of all joints. Skin: Pale, warm and dry. Actinic changes over sun exposed areas. Neuro: Patient has decreased motor strength left upper and lower extremity movement against gravity only been 2 out of 5 strength. Normal motor strength on the right side. Patient is speaking normally but drowsy having just awakened. Other Babinski on the left and negative Babinski on the right. Cranial nerves II through XII appear to be grossly intact but gag reflex was not tested. He was wearing his CPAP mask. Cerebellar testing was not performed and sensory testing was grossly intact. Patient is ignoring left side. Psych: Patient appears possibly some short-term memory deficits long-term memory appears to be grossly intact. Patient has reported normal mood and affect prior to stroke. Results Imaging Imaging Studies: Exam: CT Angiography Head With Contrast Exam date and time: 06/30/2019 10:03 PM Age: 78 years old Clinical indication: Other: Left-sided stroke like symptoms; Patient HX: Left sided stroke like symptoms TECHNIQUE: Imaging protocol: Computed tomography angiography of the head with intravenous contrast. 3D rendering: MIP and/or 3D reconstructed images were created by the technologist. COMPARISON: CT HEAD WITHOUT STROKE PROTOCOL 09/06/2016 10:09 AM FINDINGS: Right internal carotid artery: Extensive atherosclerotic calcifications with narrowing of the supraclinoid segment. No aneurysm. Right anterior cerebral artery: Unremarkable. No occlusion or significant stenosis. No aneurysm. Right middle cerebral artery: There is complete occlusion of the inferior M2 segment of the right MCA (image 538, series 12). Right posterior cerebral artery: There is short segment occlusion of the P2 segment of the right posterior cerebral artery (image 518, series 12). There is a origin of the right posterior cerebral artery. No aneurysm. Right vertebral artery: Diffuse atherosclerotic calcification with multifocal narrowing. No aneurysm. Left internal carotid artery: Extensive atherosclerotic calcification is noted. Intracranial segment is patent with no significant stenosis. No aneurysm. Left anterior cerebral artery: Unremarkable. No occlusion or significant stenosis. No aneurysm. Left middle cerebral artery: There is high-grade stenosis of the proximal M1 segment of the left MCA. No aneurysm. Left posterior cerebral artery: There is narrowing at the junction of the P1 and P2 segment of the left LUMBER CUTTER. No aneurysm. Left vertebral artery: There is multifocal occlusion of the left vertebral artery associated with diffuse atherosclerotic calcification. No aneurysm. Basilar artery: The basilar artery is irregular in contour with multifocal high-grade stenoses. No aneurysm. IMPRESSION: 1. Occlusion of the proximal inferior M1 segment of the right MCA, compatible with known acute right MCA territory infarct. 2. Short segment occlusion of the P2 segment of the right LUMBER CUTTER. 3. 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 4. 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 5. Atherosclerotic narrowing within the left LUMBER CUTTER. PROCEDURE INFORMATION: Exam: CT Head Without Contrast Exam date and time: 06/30/2019 10:03 PM Age: 78 years old Clinical indication: Other: Left-sided stroke like symptoms; Patient HX: Left sided stroke like symptoms TECHNIQUE: Imaging protocol: Computed tomography of the head without contrast. Other technique: STROKE PROTOCOL was implemented. COMPARISON: CT HEAD WITHOUT STROKE PROTOCOL 09/06/2016 10:09 AM FINDINGS: Limitations: There is motion artifact, limiting evaluation at the lower aspect of the scan. Brain: There is a large acute infarct involving the right posterior temporal lobe, right parietal lobe and to a lesser extent in the right occipital lobe. There is associated mass effect on the adjacent brain parenchyma without evidence of midline shift. There are patchy regions of hypodensity in the periventricular and subcortical white matter, likely on the basis of chronic microvascular ischemic disease. A remote infarct is seen in the left parietal and left temporal lobes. Ventricles: The ventricles and sulci are prominent in size, which is likely related to global cerebral volume loss. Bones/joints: Unremarkable. No acute fracture. Sinuses: There is mucosal thickening in the left maxillary and bilateral ethmoid sinuses. Mastoid air cells: Visualized mastoid air cells are well aerated. Mastoid air cells: Visualized mastoid air cells are well aerated. Soft tissues: Unremarkable. Vasculature: There are extensive atherosclerotic calcifications at the bilateral carotid siphons. IMPRESSION: 1. Large acute infarct involving the right temporal, parietal and occipital lobes. 2. No acute intracranial hemorrhage or midline shift. ASSESSMENT: ASPECTS ([place] Stroke Program Early CT Score) is 7. PROCEDURE INFORMATION: Exam: CT Angiography Neck With Contrast Exam date and time: 06/30/2019 10:03 PM Age: 78 years old Clinical indication: Other: Left-sided stroke like symptoms; Patient HX: Left sided stroke like symptoms TECHNIQUE: Imaging protocol: Computed tomography angiography of the neck with intravenous contrast. 3D rendering: MIP and/or 3D reconstructed images were created by the technologist. COMPARISON: CT HEAD WITHOUT STROKE PROTOCOL 09/06/2016 10:09 AM FINDINGS: VASCULATURE: Right common carotid artery: There is a retropharyngeal course. No stenosis. No dissection or occlusion. Right internal carotid artery: Atherosclerotic plaque is noted at the bifurcation and proximal internal carotid artery without hemodynamically significant stenosis. No dissection or occlusion. Right external carotid artery: Unremarkable. No occlusion or stenosis of the origin. Right vertebral artery: Unremarkable. No stenosis. No dissection or occlusion. Left common carotid artery: There is a retropharyngeal course. No stenosis. No dissection or occlusion. Left internal carotid artery: Atherosclerotic plaque is noted at the bifurcation and proximal internal carotid artery without hemodynamically significant stenosis. No dissection or occlusion. Left external carotid artery: Unremarkable. No occlusion or stenosis of the origin. Left vertebral artery: Unremarkable. No stenosis. No dissection or occlusion. NECK: Bones/joints: No acute fracture. Soft tissues: Normal. No significant soft tissue swelling. Lungs: A calcified granuloma is seen in the right upper lobe. IMPRESSION: No arterial occlusion or hemodynamically significant stenosis in the neck. No dissection or pseudoaneurysm. COMMENTS: 1. Using NASCET method for measuring degree of carotid artery stenosis: Mild is less than 50% stenosis. Moderate is 50-69% stenosis. Severe is 70-94% stenosis. Near occlusion is 95-99% stenosis. 2. THIS REPORT CONTAINS FINDINGS THAT MAY BE CRITICAL TO PATIENT CARE. The findings were verbally communicated via telephone conference with ALEXSANDER ANN at 10:42 PM EST on 06/30/2019. The findings were acknowledged and understood. Dictated and Authenticated by: Lizbeth Terrell MD. Exam: XR Chest, 1 View Exam date and time: 06/30/2019 10:23 PM Age: 78 years old Clinical indication: Other: Stroke like symptoms TECHNIQUE: Imaging protocol: XR of the chest Views: 1 view. COMPARISON: No relevant prior studies available. FINDINGS: Lungs: Unremarkable. No consolidation. Pleural space: Unremarkable. No pleural effusion. No pneumothorax. Heart/Mediastinum: Prominent mediastinum, likely due to portable technique and suboptimal inspiration. Borderline heart size. Vasculature: Atherosclerotic aortic arch. Tortuous aorta. Bones/joints: Degenerative changes within acromioclavicular joints and thoracic spine. IMPRESSION: No large infiltrates or effusions. Dictated and Authenticated by: Carlitos Holbrook MD. Labs Result diagrams: 07/01/19 05:25 07/01/19 05:25 Labs: Laboratory Results - last 24 hr 06/30/19 06/30/19 06/30/19 21:24 21:24 21:24 WBC 11.60 H RBC 5.64 Hgb 17.6 H Hct 51.7 H MCV 91.7 MCH 31.2 MCHC 34.0 RDW 15.3 H Plt Count 275 MPV 11.9 H Immature Gran % 0.2 Neutrophils % 86.7 Lymphocytes % 6.9 Monocytes % 5.5 Eosinophils % 0.5 Basophils % 0.2 Absolute Neutrophils 10.06 H Absolute Lymphocytes 0.80 L Absolute Monocytes 0.64 Absolute Eosinophils 0.06 Absolute Basophils 0.02 PT 11.3 H INR 1.1 APTT 24.6 VBG pH VBG pCO2 VBG pO2 VBG HCO3 VBG Total CO2 VBG O2 Saturation VBG Base Excess Sodium 142 Potassium 4.5 Chloride 104 Carbon Dioxide 23.5 Anion Gap 14.5 H BUN 34 H Creatinine 1.69 H Estimated GFR/1.73 m2 39.55 Glucose 139 H Lactate Calcium 9.6 Total Bilirubin 2.5 H AST 73 H ALT 44 Alkaline Phosphatase 90 Creatine Kinase 2300 H Troponin I 0.07 NT-Pro-B Natriuret Pep 974 H Total Protein 8.8 H Albumin 4.3 TSH 1.96 Urine Color Urine Clarity Urine pH Ur Specific [place] Urine Protein Urine Ketones Urine Blood Urine Nitrite Urine Bilirubin Urine Urobilinogen Ur Leukocyte Esterase Urine RBC Urine WBC Ur Epithelial Cells Urine Crystals Urine Bacteria Urine Casts Urine Mucus Ur Culture Indicated? Urine Glucose 06/30/19 06/30/19 06/30/19 22:40 23:00 23:00 WBC RBC Hgb Hct MCV MCH MCHC RDW Plt Count MPV Immature Gran % Neutrophils % Lymphocytes % Monocytes % Eosinophils % Basophils % Absolute Neutrophils Absolute Lymphocytes Absolute Monocytes Absolute Eosinophils Absolute Basophils PT INR APTT VBG pH 7.38 VBG pCO2 38 VBG pO2 36 VBG HCO3 22 VBG Total CO2 19 L VBG O2 Saturation 68 L VBG Base Excess -3.1 L Sodium Potassium Chloride Carbon Dioxide Anion Gap BUN Creatinine Estimated GFR/1.73 m2 Glucose Lactate 2.4 H* Calcium Total Bilirubin AST ALT Alkaline Phosphatase Creatine Kinase Troponin I NT-Pro-B Natriuret Pep Total Protein Albumin TSH Urine Color Yellow Urine Clarity Clear Urine pH 5.5 Ur Specific [place] >= 1.030 H Urine Protein 100 H Urine Ketones Trace H Urine Blood Small H Urine Nitrite Negative Urine Bilirubin Small H Urine Urobilinogen 0.2 Ur Leukocyte Esterase Negative Urine RBC 0-2 Urine WBC 3-5 Ur Epithelial Cells Rare Urine Crystals Negative Urine Bacteria Negative Urine Casts Negative Urine Mucus Moderate Ur Culture Indicated? No Urine Glucose Negative Last Vital Signs Temp 36.6 C 06/30/19 21:49 Pulse 97 H 06/30/19 23:01 Resp 23 06/30/19 23:10 BP 187/111 H 06/30/19 23:01 Pulse Ox 93 L 06/30/19 23:10
[2019-07-01] VITALS (13 sets, daily range): BP systolic 144–189; BP diastolic 87–113; PULSE 50–114; RESP 16–22; TEMP 36.4–38.3; O2SAT 95–97
[2019-07-01] MEDS: Heparin 5,000 UNITS/ML VIAL 5000 UNITS SC ×3 (01:40→15:47)
[2019-07-01 01:59] LABS: Troponin I 0.08 ng/Ml (<0.06)
[2019-07-01 05:43] LABS: HCT 43.2 % (40.0-50.0); Mean Corp. HGB Concentration 34.7 g/dL (32.0-36.0); Mean Corpuscular Hemoglobin 31.8 pg (27.0-33.0); Mean Corpuscular Volume 91.7 fL (80-95); Mean Platelet Volume 11.2 fL (8.0-11.0); Platelet Count 194 x1000/uL (130-400); RBC 4.71 m/cumm (4.50-6.00); RBC Distribution Width 15.4 % (11.8-14.1); White Blood Cell Count 9.75 k/cumm (4.4-10.8)
[2019-07-01 05:53] LABS: Magnesium 1.9 mg/dL (1.8-2.4)
[2019-07-01 05:57] LABS: ALT 36 U/L (16-63); AST 54 U/L (15-37); Albumin 3.2 g/dL (3.4-5.0); Alkaline Phosphatase 67 U/L (46-116); Anion Gap 11.6 mmol/L (3-11); BUN 32 mg/dL (7-18); Bilirubin, Total 1.9 mg/dL (0.2-1.0); CO2 21.4 mmol/L (21.0-32.0); CREATININE 1.29 mg/dL (0.70-1.30); Calcium 8.1 mg/dL (8.5-10.1); Chloride 110 mmol/L (98-107); Estimated GFR 54.01 (mL/min/1.73m2); Glucose 113 mg/dL (74-106); Sodium 143 mmol/L (136-145); Total Protein 6.8 g/dL (6.4-8.2)
[2019-07-01 06:02] LABS: Troponin I 0.08 ng/Ml (<0.06)
[2019-07-01 06:08] LABS: Creatine Kinase 1309 U/L (39-308)
[2019-07-01] MEDS: Normal Saline 1,000 ML 200 ML IV ×2 (06:25→10:22)
--- NOTE | 2019-07-01 08:34 | DI.US_ITS ---
APPROVED REPORT EXAM: Comprehensive 2D, Doppler, and color-flow Echocardiogram Patient Location: In-Patient Room/Bed: [address] [employer] Professor: Lizy Watt RDCS (AE) Indications: PFO with acute right CVA Conclusion Left Ventricle : The left ventricle is normal size. Left ventricular systolic function is normal. Mi ld concentric left ventricular hypertrophy. There is normal LV segmental wall motion. Transmitral Do ppler flow pattern suggests impaired LV relaxation. LVEF is 50-54%. Right Ventricle : Right ventricle is not well visualized. Atria : Left atrium is mildly dilated. The right atrium size is normal. Saline bubble contrast intrav enous injection demonstrates PFO. Valves: There are no hemodynamically significant valvular lesions. Great Vessels : The aortic root size is dilated. The ascending aorta is mildly dilated. The IVC was not visualized. Compared to echocardiogram from 09/08/2016: There is now evidence of a patent foramen ovale. The prio r study does not appear to have been done with bubble contrast. Wall motion Left Ventricle The left ventricle is normal size. Left ventricular systolic function is normal. Mild concentric left ventricular hypertrophy. There is normal LV segmental wall motion. Transmitral Doppler flow pattern suggests impaired LV relaxation. LVEF is 50-54%. Right Ventricle Right ventricle is not well visualized. Atria Left atrium is mildly dilated. The right atrium size is normal. Saline bubble contrast intravenous in jection demonstrates PFO. Aortic Valve Aortic valve is grossly normal in structure. There is no aortic valvular stenosis. Trace aortic regur gitation. Mitral Valve The mitral valve is normal in structure. No evidence of mitral valve stenosis. Trace mitral regurgita tion. Tricuspid Valve The tricuspid valve is normal in structure. There is no tricuspid valve stenosis. Trace tricuspid reg urgitation. Pulmonic Valve Pulmonic valve is not well visualized. There is no pulmonic valvular stenosis. Great Vessels The aortic root size is dilated. The ascending aorta is mildly dilated. The IVC was not visualized. Pericardium There is no pericardial effusion. No pleural effusion. Small right pleural effusion. Moderate right p leural effusion. Large right pleural effusion. Small left pleural effusion. Moderate left pleural eff usion. Large left pleural effusion. Ascites is present. Large left pleural effusion. Moderate left pl eural effusion. Small left pleural effusion. Large right pleural effusion. Moderate right pleural eff usion. Small right pleural effusion. No pleural effusion. 2D Dimensions IVSD d PLAX 1.23 cm M: 0.6-1.2 LV Vol A2C d MOD 143.1 mL LVPW d PLAX 1.27 cm M: 0.6 - 1.2 LV Vol A4C d MOD 132.5 mL LVID d PLAX 5.12 cm M: 4.2 - 5.8 LA vol/ BSA A2C s A-L 34.2 mL/m2 LVDs 4.25 cm M: 2.5 - 4.0 LA vol/ BSA A4C s A-L 36.3 mL/m2 Ao Root d 3.91 cm M: 3.1 - 3.7 LA Vol/ BSA Biplane s A-L 39.3 mL/m2 Ao Asc Diam d 3.64 cm M: 2.6 - 3.4 LA Area A4C s MOD 25.84 cm2 LV EF Teichholz 34.3 % LA Area A2C s MOD 22.49 cm2 LVEF (Nava's) 53.19 % M: 52 - 72 LV EF A4C MOD 49.8 % LV Volume 101.51 mL M: 62 - 150 LV EF A2C MOD 55.5 % LV Volume Index 46.56 mL/m2 M: 34 - 74 LV EF Biplane MOD 53.2 % LV Vol Biplane MOD 139.3 mL FS 16.45 % LV Diastology MV E' medial 0.036 (>0.07 m/s) MV E Vmax 1.20 (0.4-1.3 m/s) LV E/e MED 33.45 (<14) MV E' lateral 0.063 (>0.1 m/s) LV E/e LAT 19.15 (<14) MV E/E' medial 33.48 MV E/E' lateral 19.18 Aortic Valve LVOT Area 4.99 cm2 AoV Area Vmax 3.19 cm2 LVOT Vmax 1.04 m/s AoV Area/ BSA (Vmax) 1.46 cm2/m2 LVOT Mean Og. 0.66 m/s MELIDA Mean Og. 2.81 cm2 LVOT Peak Grad 4.4 mmHg MELIDA Mean Og. Index 1.29 cm2/m2 LVOT Mean Grad 2.1 mmHg AR DT 1413 msec LVOT VTI 0.173 m AR PHT 410 msec LVOT Diam s 2.50 cm (M/F) 1.5-2.5 AoV Vmax 1.64 (0.5-1.3 m/s) Velocity Ratio 0.63 AoV Mean Og. 1.17 m/s AoV Peak Grad 10.7 mmHg LVOT SV 86.61 mL AoV Mean Grad 6.1 (<5 mmHg) AoV VTI 0.258 (0.18-0.25 m) AoV Area VTI 3.36 (2.5-4.5 cm2) AoV Area/ BSA (VTI) 1.54 cm/m2 Mitral Valve MV DT 158 (160-240 msec) MV PHT 46 msec MV Area PHT 4.79 cm2 Pulmonary Valve PV Vmax 0.93 (0.5-1.5 m/s) RVOT Peak Gr. 1.62 mmHg PV Peak Grad 3.4 mmHg RVOT Mean Gr. 1.25 mmHg PV Mean Grad 1.9 mmHg RVOT VTI 0.120 m PV VTI 0.140 m RVOT Vmax 0.64 m/s Tricuspid Valve TR Peak Grad 15.4 mmHg TR Vmax 1.97 m/s RA Pressure 3.00 mmHg RVSP (TR) 18.5 mmHg
[2019-07-01 10:41] LABS: Lactate 0.9 mmol/L (0.6-1.4)
[2019-07-01] MEDS: Aspirin 300 MG SUPP PR (11:07)
--- NOTE | 2019-07-01 11:58 | IN_ITS ---
PT Notes Visit Reasons: RIGHT CVA,RHABDOMYOLYSIS,HTN,PAF Date: 07/01/2019 Inpatient Physical Therapy Evaluation Date: 07/01/2019 Referring Doctor: Calvin Contreras MD PT Orders: PT CONSULT: Right CVA, rhabdomyolysis Precautions: Precautions Patient Profile/Admitting Diagnosis: A 78-year-old male who suffered a right CVA resulting in left hemiplegia admitted to the hospital yesterday PMHX: Right CVA with left hemiplegia, rhabdomyolosis, hypertension, hyperlipidemia, hypothyroidism Social History/Home Situation: Lives alone in a two-story house, with his , son, and daughter living nearby. His bedroom is on the second floor, and he needs to climb 10 steps. No steps into the house. He was driving and performing all of his ADLs independently Current Functional Limitations: Requires maximal assist with all bed mobility activities and is unable to stand or ambulate Equipment Owned/DME: Has a combo tub shower with a shower chair and flexible shower hose. He has grab bars around the tub. He generally uses a cane. Subjective: [] Objective: [] General Observation: I enter his room and he is lying partially on his left side. He states that his intentions are going back home Mental Status: Alert and oriented x3 Pain: Complains of interval discomfort throughout the left knee with movement. ROM: His assistive range of motion of his upper extremities are within functional limits without pain on movement. He has mild subluxation of his left humeral head relationship to the acromion due to his proximal weakness. Assistive hip movements are non-irritable and minimal discomfort with movement of the left knee. He is nontender throughout the joint lines of the left knee, patella or proximal tibia. He has hypomobility with the talocrural, subtalar m idtarsal joints but without pain on movement. Strength: Right Upper Extremity: Full motor function of the right upper extremity strength is generally rated -45 Left Upper Extremity: His proximal musculature 0/5, left biceps and triceps and form supinators and pronators are 2/5, EDC, ECR, ECU and FDS and FDP are 1-2/5 Right Lower Extremity: Full motor control -5/5 Left Lower Extremity: His active movement of his left lower extremity but appears to have some influence with synergistic patterning. He is able to work outside these patterns though, such as ankle dorsiflexion toe extension with the knee extended, etc. His strength is generally rated +2/5 Neuro: KJ's triceps are +2, AJ's, biceps, brachioradialis are +1 and symmetrical. Positive Babinski on the left, negative on the right. He has a mild left-sided neglect, proprioceptive loss, and the left hemianopsia. He notes diminished sensation to light touch throughout a stocking glove distribution of the left side. He does not appear to cross the midline to the left when following a finger visually. I am not sure if he is unable to do this or does not quite comprehend the request. I do not detect any significant hypertonicity along the left side Bed Mobility/Transfers: Requires maximal assist with assuming the supine to sitting positions and vice versa. Attempted to stand the patient with a wheeled walker but he had difficulty placing weight on his left lower extremity. He required maximal assist also with changing position in bed. Gait: Unable to stand Balance: [] Static Sitting: Requires mild contact guarding and tendency to list to the left Dynamic Sitting: Easily disrupted Static Standing: Not evaluated Dynamic Standing: Not evaluated Special Tests: Mobility Limitations Standardized Measure [facility] 6 clicks Basic Mobility Inpatient Short Form: Raw Score: Next field 6 [] Standardized Score: 17.07 CMS Score: Next field 100% CMS Modifier: CN Informed Consent/Education: Patient instructed in purpose of PT consult and plan of care. Assessment: Patient is a 78 year old male referred to physical therapy services with the diagnosis of right CVA with left patricio-plegia/paresis. Patient presents with clinical signs and symptoms consistent with diagnosis, as demonstrated by the following impairment level findings: Weakness of the entire left side particularly proximally in the upper extremity with some left-sided neglect and probable proprioceptive loss. The patient is showing signs of some volitional control though, and will see if he regains further spontaneous recovery over the next few days.. Impairments are contributing to the following functional limitations: AMPAC score. Patient is assessed as a high 92915 complexity based on the following: History: See comorbidities and social history Examination: See above for function limitations and impairments Presentation: Unstable Decision Making: High complexity based on his neurological deficit and functional status Goals: Goals X1 week 1. Supine-Sit moderate assist 2. Sit-Supine moderate assist 3. Sit-Stand moderate assist with walker or with safety lifting device 4. Stand-Sit moderate assist with walker 5. Bed-Chair moderate assist with walker or with safety lifting device 6. Chair-Bed moderate assist with walker or with safety lifting device Plan of Care/Treatment Plan: 1-2x/day, 7 days/week x 1 week. Plan of care has been reviewed with the RECORD TABULATING CLERK providing the service under Physical Therapy direction. Initiate Physical Therapy intervention for strengthening, bed mobility, transfers, gait, use of assistive device. DISCHARGE RECOMMENDATIONS: Unable to return to his home situation currently and will require rehabilitation in a supervised environment TREATMENT CODE/TIME: 9716 07/08 7109 Treatment time: 60 minutes Disclaimer: This note was created using [employer] voice recognition software. It was reviewed for major content. However, there may be multiple small discr epancies and errors due to the voice recognition aspects of the software.
[2019-07-01] MEDS: Refresh PLUS Eye Drops 0.4ml OU (12:43)
--- NOTE | 2019-07-01 13:20 | PHA.ADMREV ---
Pharmacy Clinical Review - Admission Clinical Review (Last Updated 07/01/19 @ 07:05 by Calvin Contreras) Stroke (Acute) Rhabdomyolysis (Acute) amlodipine Allergy (Unverified 06/30/19 22:55) enalapril Allergy (Unverified 06/30/19 22:53) hydrochlorothiazide [From Hyzaar] Allergy (Unverified 06/30/19 22:54) losartan [From Hyzaar] Allergy (Unverified 06/30/19 22:54) meperidine [From Demerol] Adverse Reaction (Severe, Unverified 06/30/19 22:16) Other (See Comment) Height 5 ft 8 in Weight 106.2 kg - Renal Dosing Renal Dosing: BUN 32 mg/dL (7-18) H 07/01/19 05:25 Creatinine 1.29 mg/dL (0.70-1.30) 07/01/19 05:25 Medications needing adjustments: Reviewed (est CrCl~ 46 mL/min) - Anticoagulation Anticoagulation: Hgb 15.0 g/dL (13.5-17.5) D 07/01/19 05:25 Hct 43.2 % (40.0-50.0) 07/01/19 05:25 Plt Count 194 x1000/uL (130-400) 07/01/19 05:25 INR 1.1 (0.9-1.1) 06/30/19 21:24 Creatinine 1.29 mg/dL (0.70-1.30) 07/01/19 05:25 Medications: Heparin Therapeutic Anticoagulation: N/A - Opiate Usage Evaluate Pain Scale/Pains Meds: N/A Scheduled Bowel Reg ordered if on Opiates?: Yes - Relevant Labs Sodium 143 mmol/L (136-145) 07/01/19 05:25 Potassium 4.0 mmol/L (3.5-5.1) 07/01/19 05:25 Chloride 110 mmol/L (98-107) H 07/01/19 05:25 Magnesium 1.9 mg/dL (1.8-2.4) 07/01/19 05:25 Electrolytes, C-Reactive P, ESR: Reviewed (Lytes-WNL) - Antimicrobial Stewardship Antibiotic appropriateness: N/A Surgical Abx d/c within 24 hr: N/A De-escalation: N/A Culture review/Resistance: Reviewed (Blood culture pending) IV to PO Switch: N/A - DM Control DM Control: Glucose 113 mg/dL (74-106) H 07/01/19 05:25 Finger Stick Blood Glucose 116 Insulin Dosing: N/A - Heart Failure/CA Heart Failure/CA: Troponin I 0.08 ng/Ml (<0.06) H* 07/01/19 05:25 NT-Pro-B Natriuret Pep 974 pg/mL (<300) H 06/30/19 21:24 EF%, ANTONIA's, B-Blockers, Diuretics: N/A - BP Control BP Control: Blood Pressure 170/90 Blood Pressure 181/98 If elevated: Reviewed (Irbestaran on HOLD while NPO) - Home Meds Home Med List reviewed: Reviewed (Ordered but on HOLD) - Current meds Current Medication Order Review: Reviewed (Patient is unable to feed self and is currently NPO. Oral meds on HOLD)
--- NOTE | 2019-07-01 13:46 | PDOC.CMIN ---
- If Service Date Differs Date of service: 07/01/19 Time of Service: 13:46 Care Management Initial Assess REASON FOR HOSPITALIZATION:: Right CVIA, Rhabdomyolysis, HTN PAST MEDICAL HISTORY/PAST SURGICAL HISTORY:: Medical History. Essential hypertension (Chronic). Hyperlipidemia (Acute). Hypothyroid (Chronic). RYAN (obstructive sleep apnea) (Chronic). PFO (patent foramen ovale) (Inactive). Stroke (Chronic) PREVIOUS FUNCTIONAL STATUS/SOCIAL/FAMILY SUPPORTS:: Tyler lives alone in [place], [place] in a two story home with bedrooms/bathroom upstairs. His , Loren, no longer lives with Amandeep, as they are . She lives closeby. His son, Tyrone lives nearby [employer]ica parts sprayer, and is supportive. His daughter Alexa lives about a mile away from Amandeep. His other daughter Opal lives in [place]. Tyrone is his DPOA. He is independent at baseline, but may require additional support post CVA. CURRENT FUNCTIONAL STATUS:: Tyler was sitting up in bed when CM met with him. He asked to be moved upstairs where he can be closer to a phone. CM explained that he is in the hospital, and he quickly realized his confusion. 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 He also shared his experience of being down on the floor for more than 24 hours, and how that was a scary and difficult experience. CM discussed with him the possiblity of additional support upon discharge. Per PT, he may need a SNF placement for rehab. CM discussed the discharge planning considerations with Tyrone, Amandeep's son, who expressed concern with Amandeep going back to his current home. Tyrone stated that he would be able to have Amandeep live with him in the house he lives mica parts sprayer in [place], which is one level, but he would need additional support. CM will continue to follow. ADVANCE DIRECTIVES:: None on file. Tyrone, son, listed as DPOA. Has patient been provided with information about the portal?: No Did the patient sign up for the portal?: No CODE STATUS:: Full Code INSURANCE COVERAGE / FINANCIAL ISSUES:: [employer] CURRENT HOME/COMMUNITY SERVICES/EQUIPMENT:: Tyler currently has a telephonic case manager in the community, Shae Lopez. PRIMARY CARE PHYSICIAN:: Tristen Lou POTENTIAL DISCHARGE NEEDS:: Per PT, Tyler may benefit from a SNF placement for rehab prior to returning home. PATIENT/FAMILY EDUCATION NEEDS:: Review discharge instructions regarding activity levels and medications, provide resources for SNF placement, discussion of self care needs and goals of care. ANTICIPATED BARRIERS TO DISCHARGE:: None identified at this time. TRANSPORTATION:: Transport TBD by disposition. PLAN:: Tyler will remain at [facility] for continued tests and consults post CVA. Per PT, he may benefit from a SNF placement for a short term rehab prior to returning home. He may need additional support in the home as well. He will have follow up appointments, as recommended. CM will continue to follow.
[2019-07-01] MEDS: Nystatin POWDER 60 GM JAR TP ×2 (13:56→18:33)
--- NOTE | 2019-07-01 15:37 | W.PM.PROGNOT ---
Date of Service Date of service: 07/01/19 Time of Service: 15:40 Subjective Subjective Interval history since last seen: Mr Sosa reports feeling very thirsty. He states his speech is not back to baseline. He requests some water. He has more movement in his LUE/LLE since about 5:30 am. He has had trigeminy on tele, but no Afib. Case discussed with [facility] neurology - because of the size of the stroke, full anticoagulation would increase risk of hemorrhagic conversion at this time and should be deferred for several weeks. He may not even require anticoagulation unless we prove that he has a DVT/PFO/VSD, per [facility] neurology. For now, full dose asa and SC heparin are ok. Will continue to monitor on tele with permissive hypertension. The patient will be seen by speech therapy tomorrow for speech/swallow evals. Until then, will permit thin water only. Continue IVF for rhabdomyolysis. Start statin after CPK normalizes. Will likely need rehab. Palliative care consulted to discuss goals of care. Objective Objective Clinical Data: Abnormal lab results 06/30/19 06/30/19 06/30/19 Range/Units 21:24 21:24 21:24 WBC 11.60 H (4.4-10.8) k/cumm Hgb 17.6 H (13.5-17.5) g/dL Hct 51.7 H (40.0-50.0) % RDW 15.3 H (11.8-14.1) % MPV 11.9 H (8.0-11.0) fL Absolute Neutrophils 10.06 H (1.2-6.7) k/cumm Absolute Lymphocytes 0.80 L (1.2-3.4) k/cumm PT 11.3 H (9.3-11.0) sec VBG Total CO2 (22-29) mmol/L VBG O2 Saturation (70-80) % VBG Base Excess (-3-3) mmol/L Chloride (98-107) mmol/L Anion Gap 14.5 H (3-11) mmol/L BUN 34 H (7-18) mg/dL Creatinine 1.69 H (0.70-1.30) mg/dL Glucose 139 H (74-106) mg/dL Lactate (0.6-1.4) mmol/L Calcium (8.5-10.1) mg/dL Total Bilirubin 2.5 H (0.2-1.0) mg/dL AST 73 H (15-37) U/L Creatine Kinase 2300 H (39-308) U/L Troponin I (<0.06) ng/Ml NT-Pro-B Natriuret Pep 974 H (<300) pg/mL Total Protein 8.8 H (6.4-8.2) g/dL Albumin (3.4-5.0) g/dL Ur Specific [place] (1.005-1.025) Urine Protein (Negative) mg/dL Urine Ketones (Negative) mg/dL Urine Blood (Negative) Urine Bilirubin (Negative) 06/30/19 06/30/19 06/30/19 Range/Units 22:40 23:00 23:00 WBC (4.4-10.8) k/cumm Hgb (13.5-17.5) g/dL Hct (40.0-50.0) % RDW (11.8-14.1) % MPV (8.0-11.0) fL Absolute Neutrophils (1.2-6.7) k/cumm Absolute Lymphocytes (1.2-3.4) k/cumm PT (9.3-11.0) sec VBG Total CO2 19 L (22-29) mmol/L VBG O2 Saturation 68 L (70-80) % VBG Base Excess -3.1 L (-3-3) mmol/L Chloride (98-107) mmol/L Anion Gap (3-11) mmol/L BUN (7-18) mg/dL Creatinine (0.70-1.30) mg/dL Glucose (74-106) mg/dL Lactate 2.4 H* (0.6-1.4) mmol/L Calcium (8.5-10.1) mg/dL Total Bilirubin (0.2-1.0) mg/dL AST (15-37) U/L Creatine Kinase (39-308) U/L Troponin I (<0.06) ng/Ml NT-Pro-B Natriuret Pep (<300) pg/mL Total Protein (6.4-8.2) g/dL Albumin (3.4-5.0) g/dL Ur Specific [place] >= 1.030 H (1.005-1.025) Urine Protein 100 H (Negative) mg/dL Urine Ketones Trace H (Negative) mg/dL Urine Blood Small H (Negative) Urine Bilirubin Small H (Negative) 07/01/19 07/01/19 07/01/19 Range/Units 01:30 05:25 05:25 WBC (4.4-10.8) k/cumm Hgb (13.5-17.5) g/dL Hct (40.0-50.0) % RDW 15.4 H (11.8-14.1) % MPV 11.2 H (8.0-11.0) fL Absolute Neutrophils (1.2-6.7) k/cumm Absolute Lymphocytes (1.2-3.4) k/cumm PT (9.3-11.0) sec VBG Total CO2 (22-29) mmol/L VBG O2 Saturation (70-80) % VBG Base Excess (-3-3) mmol/L Chloride 110 H (98-107) mmol/L Anion Gap 11.6 H (3-11) mmol/L BUN 32 H (7-18) mg/dL Creatinine (0.70-1.30) mg/dL Glucose 113 H (74-106) mg/dL Lactate (0.6-1.4) mmol/L Calcium 8.1 L (8.5-10.1) mg/dL Total Bilirubin 1.9 H (0.2-1.0) mg/dL AST 54 H (15-37) U/L Creatine Kinase (39-308) U/L Troponin I 0.08 H* (<0.06) ng/Ml NT-Pro-B Natriuret Pep (<300) pg/mL Total Protein (6.4-8.2) g/dL Albumin 3.2 L (3.4-5.0) g/dL Ur Specific [place] (1.005-1.025) Urine Protein (Negative) mg/dL Urine Ketones (Negative) mg/dL Urine Blood (Negative) Urine Bilirubin (Negative) 07/01/19 07/01/19 Range/Units 05:25 05:25 WBC (4.4-10.8) k/cumm Hgb (13.5-17.5) g/dL Hct (40.0-50.0) % RDW (11.8-14.1) % MPV (8.0-11.0) fL Absolute Neutrophils (1.2-6.7) k/cumm Absolute Lymphocytes (1.2-3.4) k/cumm PT (9.3-11.0) sec VBG Total CO2 (22-29) mmol/L VBG O2 Saturation (70-80) % VBG Base Excess (-3-3) mmol/L Chloride (98-107) mmol/L Anion Gap (3-11) mmol/L BUN (7-18) mg/dL Creatinine (0.70-1.30) mg/dL Glucose (74-106) mg/dL Lactate (0.6-1.4) mmol/L Calcium (8.5-10.1) mg/dL Total Bilirubin (0.2-1.0) mg/dL AST (15-37) U/L Creatine Kinase 1309 H (39-308) U/L Troponin I 0.08 H* (<0.06) ng/Ml NT-Pro-B Natriuret Pep (<300) pg/mL Total Protein (6.4-8.2) g/dL Albumin (3.4-5.0) g/dL Ur Specific [place] (1.005-1.025) Urine Protein (Negative) mg/dL Urine Ketones (Negative) mg/dL Urine Blood (Negative) Urine Bilirubin (Negative) Vital Signs Temperature 37.4 C 07/01/19 15:13 Temperature Source Tympanic 07/01/19 15:13 Pulse 50 L 07/01/19 15:13 Pulse Rhythm Regular 07/01/19 08:42 Pulse 94 H 07/01/19 00:01 Respiratory Rate 16 07/01/19 15:13 Respiratory Effort Non-Labored 07/01/19 08:42 Respiratory Depth Normal 07/01/19 08:42 Respiratory Pattern Normal 07/01/19 08:42 Blood Pressure 189/106 H 07/01/19 15:13 Blood Pressure Mean 105 07/01/19 00:01 Pulse Oximetry 97 07/01/19 15:13 Oxygen Delivery Method Room Air 07/01/19 15:13 Oxygen Flow Rate 0 07/01/19 15:13 Pain Level 0 07/01/19 08:14 Intake & Output 06/30/19 07/01/19 07/01/19 23:59 11:59 23:59 Intake Total 500 / 500 2890 / 2890 Output Total 490 / 490 Balance 500 / 500 2400 / 2400 Weight 106.2 kg 106.2 kg Intake: IV 500 / 500 2790 / 2790 Oral 100 / 100 Output: Urine 490 / 490 Other: Urine Color Dark Carmelita Light Carmelita Urine Appearance Clear Clear Stool Size Small Stool Characteristics Soft Soft Formed Brown Voiding Methods Incontinent Laboratory Results WBC 9.75 k/cumm (4.4-10.8) 07/01/19 05:25 RBC 4.71 m/cumm (4.50-6.00) 07/01/19 05:25 Hgb 15.0 g/dL (13.5-17.5) D 07/01/19 05:25 Hct 43.2 % (40.0-50.0) 07/01/19 05:25 MCV 91.7 fL (80-95) 07/01/19 05:25 MCH 31.8 pg (27.0-33.0) 07/01/19 05:25 MCHC 34.7 g/dL (32.0-36.0) 07/01/19 05:25 RDW 15.4 % (11.8-14.1) H 07/01/19 05:25 Plt Count 194 x1000/uL (130-400) 07/01/19 05:25 MPV 11.2 fL (8.0-11.0) H 07/01/19 05:25 Immature Gran % 0.2 % 06/30/19 21:24 Neutrophils % 86.7 06/30/19 21:24 Lymphocytes % 6.9 06/30/19 21:24 Monocytes % 5.5 06/30/19 21:24 Eosinophils % 0.5 06/30/19 21:24 Basophils % 0.2 06/30/19 21:24 Absolute Neutrophils 10.06 k/cumm (1.2-6.7) H 06/30/19 21:24 Absolute Lymphocytes 0.80 k/cumm (1.2-3.4) L 06/30/19 21:24 Absolute Monocytes 0.64 k/cumm (0.11-0.7) 06/30/19 21:24 Absolute Eosinophils 0.06 k/cumm (0.0-0.7) 06/30/19 21:24 Absolute Basophils 0.02 k/cumm (0.0-0.2) 06/30/19 21:24 PT 11.3 sec (9.3-11.0) H 06/30/19 21:24 INR 1.1 (0.9-1.1) 06/30/19 21:24 APTT 24.6 sec (21.0-31.4) 06/30/19 21:24 VBG pH 7.38 (7.35-7.45) 06/30/19 23:00 VBG pCO2 38 mm/Hg (34-47) 06/30/19 23:00 VBG pO2 36 mm/Hg (28-44) 06/30/19 23:00 VBG HCO3 22 mmol/L (22-28) 06/30/19 23:00 VBG Total CO2 19 mmol/L (22-29) L 06/30/19 23:00 VBG O2 Saturation 68 % (70-80) L 06/30/19 23:00 VBG Base Excess -3.1 mmol/L (-3-3) L 06/30/19 23:00 Sodium 143 mmol/L (136-145) 07/01/19 05:25 Potassium 4.0 mmol/L (3.5-5.1) 07/01/19 05:25 Chloride 110 mmol/L (98-107) H 07/01/19 05:25 Carbon Dioxide 21.4 mmol/L (21.0-32.0) 07/01/19 05:25 Anion Gap 11.6 mmol/L (3-11) H 07/01/19 05:25 BUN 32 mg/dL (7-18) H 07/01/19 05:25 Creatinine 1.29 mg/dL (0.70-1.30) 07/01/19 05:25 Estimated GFR/1.73 m2 54.01 (mL/min/1.73m2) 07/01/19 05:25 Glucose 113 mg/dL (74-106) H 07/01/19 05:25 Lactate 0.9 mmol/L (0.6-1.4) 07/01/19 10:34 Calcium 8.1 mg/dL (8.5-10.1) L 07/01/19 05:25 Magnesium 1.9 mg/dL (1.8-2.4) 07/01/19 05:25 Total Bilirubin 1.9 mg/dL (0.2-1.0) H 07/01/19 05:25 AST 54 U/L (15-37) H 07/01/19 05:25 ALT 36 U/L (16-63) 07/01/19 05:25 Alkaline Phosphatase 67 U/L (46-116) 07/01/19 05:25 Creatine Kinase 1309 U/L (39-308) H 07/01/19 05:25 Troponin I 0.08 ng/Ml (<0.06) H* 07/01/19 05:25 NT-Pro-B Natriuret Pep 974 pg/mL (<300) H 06/30/19 21:24 Total Protein 6.8 g/dL (6.4-8.2) 07/01/19 05:25 Albumin 3.2 g/dL (3.4-5.0) L 07/01/19 05:25 TSH 1.96 uIU/mL (0.36-3.74) 06/30/19 21:24 Urine Color Cancelled 07/01/19 02:22 Urine Clarity Cancelled 07/01/19 02:22 Urine pH Cancelled 07/01/19 02:22 Ur Specific [place] Cancelled 07/01/19 02:22 Urine Protein Cancelled 07/01/19 02:22 Urine Ketones Cancelled 07/01/19 02:22 Urine Blood Cancelled 07/01/19 02:22 Urine Nitrite Cancelled 07/01/19 02:22 Urine Bilirubin Cancelled 07/01/19 02:22 Urine Urobilinogen Cancelled 07/01/19 02:22 Ur Leukocyte Esterase Cancelled 07/01/19 02:22 Urine RBC 0-2 HPF (0-2) 06/30/19 22:40 Urine WBC 3-5 HPF (0-5) 06/30/19 22:40 Ur Epithelial Cells Rare HPF (Negative) 06/30/19 22:40 Urine Crystals Negative HPF (Negative) 06/30/19 22:40 Urine Bacteria Negative HPF (Negative) 06/30/19 22:40 Urine Casts Negative LPF (Negative) 06/30/19 22:40 Urine Mucus Moderate (Negative) 06/30/19 22:40 Ur Culture Indicated? No 06/30/19 22:40 Urine Glucose Cancelled 07/01/19 02:22
[2019-07-01] MEDS: Normal Saline 1,000 ML 150 ML IV ×2 (16:31→22:47)
--- NOTE | 2019-07-01 20:00 | DI.RAD_ITS ---
EXAM: XR PORTABLE CHEST AP INDICATION: new onset fever. COMPARISON: XR PORTABLE CHEST AP from 06/30/2019 TECHNIQUE: 2D digital imaging was performed. FINDINGS: Heart is enlarged and the aorta is tortuous, unchanged. Leads overlie the chest. No infiltrate or e ffusion is identified. There is no evidence pulmonary edema. IMPRESSION: No acute abnormality. DATA REPOSITORY: RADIATION DOSE DELIVERED:
[2019-07-01] MEDS: Acetaminophen 650 MG SUPP PR (20:06)
[2019-07-01] MEDS: Metoprolol 5 MG/5 ML VIAL 2.5 MG IVP (20:07)
--- NOTE | 2019-07-01 20:31 | DI.VRAD_ITS ---
PROCEDURE INFORMATION: Exam: XR Chest, 1 View Exam date and time: 07/01/2019 8:02 PM Age: 78 years old Clinical indication: Patient HX: New onset fever, HX R CVA, concern for aspiration per nurse TECHNIQUE: Imaging protocol: XR of the chest Views: 1 view. COMPARISON: XR PORTABLE CHEST AP 06/30/2019 10:20 PM FINDINGS: Lungs: No acute lung infiltrates or consolidation. No edema. 5 mm calcified right upper lobe granuloma. Pleural space: Unremarkable. No pleural effusion. No pneumothorax. Heart/Mediastinum: Moderate cardiomegaly. Stable since chest x-ray yesterday. 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 IMPRESSION: 1. No acute infiltrates or consolidation. Stable chest x-ray since 06/30/2019. 2. Cardiomegaly. Dictated and Authenticated by: Ryan Hernandez MD. Ordering:CASSIDY Simpson MD
[2019-07-02] VITALS (16 sets, daily range): BP systolic 149–197; BP diastolic 86–123; PULSE 73–110; RESP 18–26; TEMP 36.4–39; O2SAT 92–97
--- NOTE | 2019-07-02 | DI.US_ITS ---
EXAM: US UPPER EXTREMITY VENOUS LT CLINICAL HISTORY: edema LLE TECHNIQUE: Ultrasound performed using standard protocol. COMPARISON: No exams were available for comparison FINDINGS: The jugular vein is free of thrombus. The veins of the arm are freely compressible. No deep venous thrombosis or superficial thrombosis is seen. There is no localized fluid collection. IMPRESSION: Negative left upper extremity ultrasound. DATA REPOSITORY:
--- NOTE | 2019-07-02 | DI.US_ITS ---
EXAM: US EXTREMITY VENOUS BI CLINICAL HISTORY: PFO with acute right CVA, ? DVT. TECHNIQUE: Lower extremity venous ultrasound performed using grayscale, color-flow, and spectral Dop pler analysis. COMPARISON: No exams were available for comparison FINDINGS: Right lower extremity: The common femoral, femoral and popliteal veins demonstrate normal compressibi lity, augmentation, and color Doppler. The posterior tibial veins are patent. The saphenous vein appe ars free of thrombus. No Hopkins's cyst or hematoma is seen. Left lower extremity: The common femoral, femoral and popliteal veins demonstrate normal compressibil ity, augmentation, and color Doppler. The posterior tibial veins are patent. The saphenous vein appea rs free of thrombus. There is a small Hopkins's cyst measuring 3.7 x 1.1 x 2.5 cm. IMPRESSION: No evidence of DVT. Small left popliteal cyst. DATA REPOSITORY:
[2019-07-02] MEDS: Heparin 5,000 UNITS/ML VIAL 5000 UNITS SC ×4 (00:26→23:45)
[2019-07-02] MEDS: Metoprolol 5 MG/5 ML VIAL 2.5 MG IVP (02:04)
[2019-07-02] MEDS: Acetaminophen 650 MG SUPP PR ×2 (04:31→23:47)
[2019-07-02] MEDS: Normal Saline 1,000 ML 150 ML IV ×3 (05:02→21:38)
[2019-07-02 06:46] LABS: Absolute Basophil Count 0.01 k/cumm (0.0-0.2); Absolute Eosinophil Count 0.52 k/cumm (0.0-0.7); Absolute Lymphocyte Count 0.44 k/cumm (1.2-3.4); Absolute Monocyte Count 0.94 k/cumm (0.11-0.7); Absolute Neutrophil Count 8.01 k/cumm (1.2-6.7); Basophils % 0.1; Eosinophils % 5.2; HCT 43.2 % (40.0-50.0); HGB 14.7 g/dL (13.5-17.5); Lymphocytes % 4.4; Mean Corpuscular Hemoglobin 31.5 pg (27.0-33.0); Mean Corpuscular Volume 92.5 fL (80-95); Mean Platelet Volume 11.7 fL (8.0-11.0); Monocytes % 9.4; Neutrophils % 79.9; RBC 4.67 m/cumm (4.50-6.00); RBC Distribution Width 15.3 % (11.8-14.1); White Blood Cell Count 10.02 k/cumm (4.4-10.8)
[2019-07-02 07:08] LABS: Hemoglobin A1C 5.6 % (3.8-5.6)
[2019-07-02 07:15] LABS: Anion Gap 15.7 mmol/L (3-11); BUN 26 mg/dL (7-18); CO2 17.3 mmol/L (21.0-32.0); CREATININE 1.43 mg/dL (0.70-1.30); Calcium 8.3 mg/dL (8.5-10.1); Chloride 111 mmol/L (98-107); Creatine Kinase 450 U/L (39-308); Estimated GFR 47.95 (mL/min/1.73m2); Glucose 107 mg/dL (74-106); Magnesium 1.8 mg/dL (1.8-2.4); Sodium 144 mmol/L (136-145); TSH (W/Ref FT4) 1.79 uIU/mL (0.36-3.74)
[2019-07-02 07:20] LABS: Diff Comment PLT Morph Reviewed; Platelet Count 119 x1000/uL (130-400); RBC Morphology Normal
[2019-07-02 07:27] LABS: Calculated LDL 63 mg/dL (<100); Cholesterol 116 mg/dL (<200); HDL Cholesterol 32 mg/dL (40-60); Triglyceride 109 mg/dL (<150)
[2019-07-02] MEDS: Nystatin POWDER 60 GM JAR TP ×3 (08:21→20:09)
[2019-07-02 08:45] LABS: Lactate 0.8 mmol/L (0.6-1.4)
--- NOTE | 2019-07-02 08:47 | OT.INIE ---
Occupational Therapy Notes Inpatient Occupational Therapy Evaluation Date: 07/02/19 Referring Doctor: Belkis Toth MD OT Orders: Non-Urgent: Limited Ability Precautions: Fall, Standard PATIENT PROFILE/ADMITTING DIAGNOSIS: Pt is a 78 year old male who presented to the ER on 06/30/19 by EMS, after his son found him in his home on the floor. It was reported that he fell out of bed sometime within the 24-48 hours after his caregiver had left. Pt was admitted to [facility] for CVA/TIA with a dx of stroke/Rhabdomyolysis. Past Medical History- Medical History (Updated 06/30/19 @ 23:47 by Calvin Contreras) Stroke (Chronic) Social History/Home Situation: Pt lived in a private home in [place] and was recently from his who lives near by. He has a daughter who lives close, a son who lives paint department supervisor nearby and another daughter who lives out of state. Pt is unable to give a lot information on the set up of his home, he does have a tub/shower with grab bars. He does verbalize that he had HH coming into his home to help him at times. In pts EMR it does state that he was functionally almost (I) prior to admission and pt was driving (I). He is retired. His bedroom is on the 2nd floor and he has 10 steps that he would have to climb to get to the top. His verbal communication is limited at this time with lack of tongue control. He is able to lift his index finger for yes or no questions. Equipment owned/DME: grab bars, cane SUBJECTIVE: Pt was in bed when OT arrived. Nursing notes that he is max (A) for all transfers and unable to stand at all at this time. Pt was agreeable to OT session and responded yes when OT asked if it was ok to proceed with OT evaluation. He was in extreme pain in the (L) side of his body. OBJECTIVE: General Observation: Pt is having difficulty keeping his eyes open, his body is propped with pillows and OT adjusts pts (L) hand and arm to decrease risk of contractures. Pt is tender to palpation in (L) UE and yells in pain when palpated. He is able to verbalize that (R) UE/LE is sore but less than (L). Mental Status: A&O to name Pain: c/o pain in (L) UE/LE > (R) UE/LE Vital Signs: MEDICAID BUSINESS ANALYST took pts BP in lying position at 188/102 ROM: RUE Able to bend elbow WNL, extend digits but is unable to actively flex digits without vc and min (A) L UE Pt has (L) shoulder protraction but states this is too painful. unable to actively perform shoulder flexion, elbow flexion/extension or manager manufacturing strength. STRENGTH: RUE Communications Consultant strength is 4/5 LUE Communications Consultant strength is 3+/5 with vc and tactile (A) prior FUNCTIONAL MOBILITY/ADLS: Functional mobility including bed mobility is max (A) at this time. BATHING Pt is unable to perform. When asked he says no and cannot move his (B) UE without mod-max (A) for (B) ROM. Pt is max (A) for bathing at this time. DRESSING Unable to assess due to pts pain. Pt is tender to palpation and with decline in function OT also feels that per examination pt is max (A) at this time. GROOMING NT TOILETING NT at todays session. EATING Pt is currently NPO with clear liquids only. Pt has decreased tongue control for verbal communication and will be evaluated by a Speech and Language Pathologist. BALANCE: Static sitting Poor Dynamic Sitting Poor Static Standing Unable to assess Dynamic Standing Unable to assess SPECIAL TESTS: Daily Activity Limitations Standardized Measure [facility] AM -PAC ?6 clicks? Daily Activity Inpatient Short Form: Raw score: 7 Standardized score: 20.13 CMS score: 92.44% INFORMED CONSENT/EDUCATION: Pt instructed in purpose of OT Consult and plan of care. ASSESSMENT: Patient is a 78-year-old male referred to occupational therapy services with diagnosis of stroke/rhabdomyolysis. Patient presents with clinical signs and symptoms consistent with dx, as demonstrated by the following impairment level findings: 1. Pain in (L) UE/LE 2. Pain in (R) UE/LE 3. Max (A) bed mobility 4. Max (A) functional mobility required for ADLs 5. Decreased verbal communication 6. Decreased gross and fine motor control of (B) UE 7. Decreased functional activity tolerance 8. Decreased strength in (B) UE 9. Decreased functional AROM in (B) UE 10. Decreased visual tracking Impairments are contributing to the following functional limitations: 1. Decreased sitting tolerance 2. Decreased fine motor and gross motor control of (B) UE 3. Max (A) functional mobility required for ADL/IADL routines 4. Max (A) ADL/IADL routines in lying position 5. Unable to perform bed mobility 6. Incontinent 7. Decreased cognitive processing AMPAC score 7 Patient is assessed as a high 57970 complexity based on the following: History: see above Examination: see above Presentation: Evolving Decision Making: [facility] 7 GOALS Goals x1 week 1. Transfers Mod (A) 2. Dressing Sitting in bed with mod (A) pt will be able to put on hospital gown 3. Bathing sitting in bed with max (A) set up pt will be able to (I) wash face and wash (B) UE and abdomen with mod (A) 4. Toileting on commode mod (A) 5. Eating sitting with mod (A) PLAN OF CARE/TREATMENT PLAN: 1x/day, 5 days/ week x 1week Initiate Occupational Therapy Services for bathing, dressing, grooming, toileting, eating, transfer training. DISCHARGE RECOMMENDATIONS Based on pts current functional (I) in ADLs/IADLs OT feels that pt would benefit from LTC vs. SNF. If pt does return home he would require 24 hour care. TREATMENT TIME/MINUTES/CODES 89962, 20 minutes (07:40) [facility]
[2019-07-02] MEDS: Aspirin 300 MG SUPP PR (08:50)
[2019-07-02 08:57] LABS: Bilirubin Negative (Negative); Blood Large (Negative); Clarity Clear (Clear); Glucose Negative (Negative); Ketones Trace mg/dL (Negative); Leukocyte Esterase Negative (Negative); Nitrite Negative (Negative); Specific Gravity >= 1.030 (1.005-1.025)
--- NOTE | 2019-07-02 09:11 | PT.INTREAT ---
Date of service: 07/02/19 Time of Service: 09:11 PT Notes Visit Reasons: RIGHT CVA,RHABDOMYOLYSIS,HTN,PAF Inpatient Physical Therapy Treatment Note [facility] Date: 07/02/2019 PRECAUTIONS: Standard. Fall. Activity as tolerated. SUBJECTIVE: Pt complained of pain in his crotch throughout the treatment session. Reports pain in his left hip and shoulder. OBJECTIVE: Pt lying in bed with the head of the bed at approximately 30 degrees. IV line in right UE. Able to follow simple commands and answer single step questions. PAIN: pain in left hip and shoulder. BED MOBILITY/TRANSFERS Rolling L/R: Max x2 Supine-sit: Max x2 Sit-supine: Max x2 Sit-stand: attempted to stand at the edge of the bed, however, the pt would not bearing weight through his lower extremities Stand-sit: unable Bed-Chair: unable Chair-bed: unable THERAPEUTIC ACTIVITY: Seated on the edge of the bed x 5 minutes PNF to the L UE an LE x 10 Approximation of the L UE while seated on the edge of the bed x10 ASSESSMENT: Pt continues to require maximum assistance for bed mobility and is unable to perform sit to stand transfers as he is unable to bear weight through his lower extremities. Demonstrates improvements in his sitting tolerance and balance on the edge of the bed as he was able to maintain a seated position without assistance for greater than a minute, otherwise required intermittent assistance and cueing to sit tall. PLAN: Continue with established POC. TREATMENT CODE/TIME: 15896 x39 minutes + 30416 x 10 minutes beginning at 9:11 A.M. Arthur Sharp, SPT Doctor of Physical Therapy Student [facility] Supervision provided by Brooklyn Edwards PT, DPT, CLT [facility] [place], [place]
[2019-07-02 09:22] LABS: Epithelial Cells Rare HPF (Negative); RBC >50 HPF (0-2); WBC 0-2 HPF (0-5)
[2019-07-02 09:23] LABS: Bacteria Rare HPF (Negative); C & S Indicated? No; Casts Negative LPF (Negative); Crystals Rare Triple Phos HPF (Negative); Mucus Negative (Negative)
[2019-07-02 09:30] LABS: Procalcitonin 0.3 ng/mL
--- NOTE | 2019-07-02 09:49 | PDOC.CMPRO ---
- If Service Date Differs Date of service: 07/02/19 Time of Service: 09:49 Care Management Progress Note S/O:Tyler has just returned from a test when CM enters the room. His daughter Alexa is present and is able to review the list of nursing homes. She request a referral be faxed [facility] which CM will fax today. Tyler remains acute he has a PT/OT and speech consult. CM will start the LTM application with family per his daughter he does not have any resources. A:Amandeep is a 78 year old male admitted with CVA P: Tyler will be discharged when medically ready per provider. Anticipate he will be discharged to a SNF at PT recommendations. CM provided SNF information from with a listing of local facilities in [place]. Transportation to be determine pending disposition.
[2019-07-02] MEDS: Refresh PLUS Eye Drops 0.4ml OU (10:45)
--- NOTE | 2019-07-02 10:46 | W.PM.PROGNOT ---
Date of Service Date of service: 07/02/19 Time of Service: 10:46 Assessment and Plan Assessment and plan (1) Acute right MCA stroke: Status: Acute Assessment and plan: with dysarthria, L-sided neglect, L hemiparesis (hemiplegia on today's exam), encephalopathy. Await MRI - based on clinical worsening today, I am concerned about extension of the stroke and/or hemorrhagic conversion. MRI is happening within minutes, I am told. For now, continue rectal asa. Permissive hypertension. No neurology is available in house today - therefore, if there are any concerning findings, we will discuss with [facility] neurology. Await speech/swallow eval. Conitnue PT/OT. Await palliative care consult to discuss goals of care. (2) Encephalopathy acute: Status: Acute Assessment and plan: Could be due to developing brain edema, possible progression of stroke, possible hemorrhagic conversion, developing infectious process (I suspect aspiration pneumonia). Start empiric abx; obtain MRI brain. Continue neurochecks. (3) Aspiration pneumonia: Status: Suspected Assessment and plan: Suspected, based on noticed dysarthria, elevated procalcitonin, patient's report of shortness of breath. Start on vanco/zosyn. Obtaining swallow eval today. Monitor procalcitonin. (4) Dysarthria: Status: Acute Assessment and plan: Result of stroke. Await speech/swallow evals. (5) Left upper extremity swelling: Status: Acute Assessment and plan: DDx: DVT, dependent edema Obtain Venous doppler LUE (6) Rhabdomyolysis: Status: Acute Assessment and plan: Improved - continue IVF today. Recheck CPK in am Qualifiers: Rhabdomyolysis type: traumatic Encounter type: initial encounter Qualified Code(s): T79.6XXA - Traumatic ischemia of muscle, initial encounter (7) Essential hypertension: Status: Chronic Assessment and plan: For now, pursuing permissive hypertension with prn IV lopressor/hydralazine for SBP>180. (8) RYAN (obstructive sleep apnea): Status: Chronic Assessment and plan: Continue CPAP with naps/HS (9) PFO (patent foramen ovale): Status: Chronic Assessment and plan: Awaiting echo read. S/p echo with bubble study yesterday. (10) Ambulatory dysfunction: Status: Acute Assessment and plan: PT/OT consulted. Will require SNF. (11) Obesity (BMI 35.0-39.9 without comorbidity): Status: Chronic Assessment and plan: when/if patient is able, he should attempt to lose weight. (12) DVT prophylaxis: Status: Acute Assessment and plan: heparin SC (13) Discharge planning issues: Status: Acute Assessment and plan: Full code Palliative care consulted to discuss goals of care. If condition worsens, [facility] will not have a neurologist on sight until 07/04/2019 - may require transfer to a tertiary care facility. Anticipate SNF on discharge. Subjective Subjective Interval history since last seen: Mr Sosa is more somnolent today, though still arousable. When I came to examine him, it took a sternal rub to wake him up. He was unable to move LUE/LLE on command. He denies headache, dizziness, chest pain, nausea. Reports slight shortness of breath. He is significantly slower with his responses. Reports pain all over, but especially so in his LUE, which is slightly more edematous today than LLE. Exam Narrative Exam Narrative: General: Elderly obese male, lethargic, difficult to arouse, but arousable, A&Ox2 (yesterday he knew it was June, today he does not), much slower with is responses, unable to move LUE/LLE on command; L-sided neglect HEENT: Keeps eyes closed, able to open them on command, but not long enough for me to assess his extraocular movements; dry MM Heart: RRR, no m/r/g Lungs: CTAB/diminished, slightly tachypenic. Abdomen: soft, nontender, nondistended Extremities: Trace edema BLE's and LUE. Objective Objective Clinical Data: Abnormal lab results 07/02/19 07/02/19 07/02/19 Range/Units 06:15 06:15 08:45 RDW 15.3 H (11.8-14.1) % Plt Count 119 L (130-400) x1000/uL MPV 11.7 H (8.0-11.0) fL Absolute Neutrophils 8.01 H (1.2-6.7) k/cumm Absolute Lymphocytes 0.44 L (1.2-3.4) k/cumm Absolute Monocytes 0.94 H (0.11-0.7) k/cumm Chloride 111 H (98-107) mmol/L Carbon Dioxide 17.3 L (21.0-32.0) mmol/L Anion Gap 15.7 H (3-11) mmol/L BUN 26 H (7-18) mg/dL Creatinine 1.43 H (0.70-1.30) mg/dL Glucose 107 H (74-106) mg/dL Calcium 8.3 L (8.5-10.1) mg/dL Creatine Kinase 450 H (39-308) U/L HDL Cholesterol 32 L (40-60) mg/dL Ur Specific Moran >= 1.030 H (1.005-1.025) Urine Protein 30 H (Negative) mg/dL Urine Ketones Trace H (Negative) mg/dL Urine Blood Large H (Negative) Urine Urobilinogen 2.0 H (Up TO 0.2) EU/dL Urine RBC >50 H (0-2) HPF Vital Signs Temperature 36.4 C L 07/02/19 07:47 Temperature Source Tympanic 07/02/19 07:47 Pulse 91 H 07/02/19 07:47 Pulse Rhythm Regular 07/02/19 09:20 Pulse 94 H 07/01/19 00:01 Respiratory Rate 22 07/02/19 07:47 Respiratory Effort Non-Labored 07/02/19 09:20 Respiratory Depth Normal 07/02/19 09:20 Respiratory Pattern Normal 07/02/19 09:20 Blood Pressure 188/102 H 07/02/19 07:47 Blood Pressure Mean 105 07/01/19 00:01 Pulse Oximetry 94 L 07/02/19 07:47 Oxygen Delivery Method Room Air 07/02/19 07:47 Oxygen Flow Rate 0 07/02/19 07:47 Pain Level 0 07/02/19 07:47 Comment 07/01/19 19:23 Intake & Output 07/01/19 07/01/19 07/02/19 11:59 23:59 11:59 Intake Total 2890 / 6020 3130 / 6020 987.5 / 987.5 Output Total 490 / 940 450 / 940 900 / 900 Balance 2400 / 5080 2680 / 5080 87.5 / 87.5 Weight 106.2 kg 106.4 kg Intake: IV 2790 / 5670 2880 / 5670 937.5 / 937.5 Oral 100 / 350 250 / 350 50 / 50 Output: Urine 490 / 940 450 / 940 900 / 900 Other: Urine Color Light Carmelita Dark Carmelita Yellow Urine Appearance Clear Clear Clear Comment post void Stool Size Small Moderate Stool Characteristics Soft Soft Formed Brown Voiding Methods Incontinent Incontinent Laboratory Results WBC 10.02 k/cumm (4.4-10.8) 07/02/19 06:15 RBC 4.67 m/cumm (4.50-6.00) 07/02/19 06:15 Hgb 14.7 g/dL (13.5-17.5) 07/02/19 06:15 Hct 43.2 % (40.0-50.0) 07/02/19 06:15 MCV 92.5 fL (80-95) 07/02/19 06:15 MCH 31.5 pg (27.0-33.0) 07/02/19 06:15 MCHC 34.0 g/dL (32.0-36.0) 07/02/19 06:15 RDW 15.3 % (11.8-14.1) H 07/02/19 06:15 Plt Count 119 x1000/uL (130-400) L 07/02/19 06:15 MPV 11.7 fL (8.0-11.0) H 07/02/19 06:15 Immature Gran % 1.0 % 07/02/19 06:15 Neutrophils % 79.9 07/02/19 06:15 Lymphocytes % 4.4 07/02/19 06:15 Monocytes % 9.4 07/02/19 06:15 Eosinophils % 5.2 07/02/19 06:15 Basophils % 0.1 07/02/19 06:15 Absolute Neutrophils 8.01 k/cumm (1.2-6.7) H 07/02/19 06:15 Absolute Lymphocytes 0.44 k/cumm (1.2-3.4) L 07/02/19 06:15 Absolute Monocytes 0.94 k/cumm (0.11-0.7) H 07/02/19 06:15 Absolute Eosinophils 0.52 k/cumm (0.0-0.7) 07/02/19 06:15 Absolute Basophils 0.01 k/cumm (0.0-0.2) 07/02/19 06:15 Differential Comment Plt morph reviewed 07/02/19 06:15 RBC Morphology Normal 07/02/19 06:15 PT 11.3 sec (9.3-11.0) H 06/30/19 21:24 INR 1.1 (0.9-1.1) 06/30/19 21:24 APTT 24.6 sec (21.0-31.4) 06/30/19 21:24 VBG pH 7.38 (7.35-7.45) 06/30/19 23:00 VBG pCO2 38 mm/Hg (34-47) 06/30/19 23:00 VBG pO2 36 mm/Hg (28-44) 06/30/19 23:00 VBG HCO3 22 mmol/L (22-28) 06/30/19 23:00 VBG Total CO2 19 mmol/L (22-29) L 06/30/19 23:00 VBG O2 Saturation 68 % (70-80) L 06/30/19 23:00 VBG Base Excess -3.1 mmol/L (-3-3) L 06/30/19 23:00 Sodium 144 mmol/L (136-145) 07/02/19 06:15 Potassium 4.0 mmol/L (3.5-5.1) 07/02/19 06:15 Chloride 111 mmol/L (98-107) H 07/02/19 06:15 Carbon Dioxide 17.3 mmol/L (21.0-32.0) L 07/02/19 06:15 Anion Gap 15.7 mmol/L (3-11) H 07/02/19 06:15 BUN 26 mg/dL (7-18) H 07/02/19 06:15 Creatinine 1.43 mg/dL (0.70-1.30) H 07/02/19 06:15 Estimated GFR/1.73 m2 47.95 (mL/min/1.73m2) 07/02/19 06:15 Glucose 107 mg/dL (74-106) H 07/02/19 06:15 Hemoglobin A1c 5.6 % (3.8-5.6) 07/02/19 06:15 Lactate 0.8 mmol/L (0.6-1.4) 07/02/19 08:35 Calcium 8.3 mg/dL (8.5-10.1) L 07/02/19 06:15 Magnesium 1.8 mg/dL (1.8-2.4) 07/02/19 06:15 Total Bilirubin 1.9 mg/dL (0.2-1.0) H 07/01/19 05:25 AST 54 U/L (15-37) H 07/01/19 05:25 ALT 36 U/L (16-63) 07/01/19 05:25 Alkaline Phosphatase 67 U/L (46-116) 07/01/19 05:25 Creatine Kinase 450 U/L (39-308) H 07/02/19 06:15 Troponin I 0.08 ng/Ml (<0.06) H* 07/01/19 05:25 NT-Pro-B Natriuret Pep 974 pg/mL (<300) H 06/30/19 21:24 Total Protein 6.8 g/dL (6.4-8.2) 07/01/19 05:25 Albumin 3.2 g/dL (3.4-5.0) L 07/01/19 05:25 Triglycerides 109 mg/dL (<150) 07/02/19 06:15 Total Cholesterol 116 mg/dL (<200) 07/02/19 06:15 LDL Cholesterol, Calc 63 mg/dL (<100) 07/02/19 06:15 HDL Cholesterol 32 mg/dL (40-60) L 07/02/19 06:15 Procalcitonin 0.3 ng/mL 07/02/19 08:35 TSH 1.79 uIU/mL (0.36-3.74) 07/02/19 06:15 Urine Color Yellow (Yellow) 07/02/19 08:45 Urine Clarity Clear (Clear) 07/02/19 08:45 Urine pH 6.0 (5-8) 07/02/19 08:45 Ur Specific Moran >= 1.030 (1.005-1.025) H 07/02/19 08:45 Urine Protein 30 mg/dL (Negative) H 07/02/19 08:45 Urine Ketones Trace mg/dL (Negative) H 07/02/19 08:45 Urine Blood Large (Negative) H 07/02/19 08:45 Urine Nitrite Negative (Negative) 07/02/19 08:45 Urine Bilirubin Negative (Negative) 07/02/19 08:45 Urine Urobilinogen 2.0 EU/dL (Up TO 0.2) H 07/02/19 08:45 Ur Leukocyte Esterase Negative (Negative) 07/02/19 08:45 Urine RBC >50 HPF (0-2) H 07/02/19 08:45 Urine WBC 0-2 HPF (0-5) 07/02/19 08:45 Ur Epithelial Cells Rare HPF (Negative) 07/02/19 08:45 Urine Crystals Rare triple phos HPF (Negative) 07/02/19 08:45 Urine Bacteria Rare HPF (Negative) 07/02/19 08:45 Urine Casts Negative LPF (Negative) 07/02/19 08:45 Urine Mucus Negative (Negative) 07/02/19 08:45 Urine Other (Negative) 07/02/19 08:45 Ur Culture Indicated? No 07/02/19 08:45 Urine Glucose Negative mg/dL (Negative) 07/02/19 08:45 CXR 07/01/2019: No acute abnormality.
--- NOTE | 2019-07-02 11:50 | DI.MRI_ITS ---
EXAM: MR BRAIN WO CLINICAL HISTORY: acute CVA. TECHNIQUE: Multiplanar multisequence MRI was performed. COMPARISON: CT BRAIN NECK CTA from 06/30/2019 FINDINGS: The exam is mildly limited by motion. A large area of restricted diffusion is seen in the right pa rietal lobe with a small area of involvement in the adjacent right temporal lobe, in the area of infa rct seen on recent head CT. An area of old infarct is seen in the left posterior parietal and occipi ondina lobes as well as left cerebellum. Underlying atrophy and white matter changes of small vessel di sease are again noted. There is no evidence of hemorrhage. There is mucosal thickening of the left maxillary sinus and several ethmoid sinuses. IMPRESSION: Large area of acute infarct in the right parietal and small portion of the adjacent right temporal lo bes. DATA REPOSITORY:
[2019-07-02] MEDS: Normal Saline Flush 10 ML SYR ×2 (12:29→21:39)
--- NOTE | 2019-07-02 13:23 | W.SPEECHEVAL ---
Date of service: 07/02/19 Time of Service: 12:25 Speech Therapy Evaluation Note: Speech-Language/Swallowing Pathology Clinical Dysphagia Evaluation Medical Diagnosis: R CVA Therapy Diagnosis: Oral Pharyngeal Dysphagia Current Level of Care: Medical Subjective: Pt was in bed upon arrival, granddaughter visiting. Pt was agreeable to evaluation but was very distracted throughout. Pertinent Medical/Swallowing History & Previous Level of Function: Per MD H & P: Chief Complaint: Left-sided weakness Narrative: This is a 78-year-old gentleman who lives alone and is generally functioning independently who was found at home by his family after greater than a 28-hour period of time of not being checked on by his family. He was down on the floor with left-sided weakness and incontinence of urine and stool. Was brought to the ED for evaluation and was found by CT scan to have a right MCA thrombotic stroke distribution with no hemorrhage. He also had rhabdomyolysis having been down on the floor several hours. He had no injuries and had no complaints of headache or chest pain. The EMS did note a rapid ventricular response of about 160 with probable atrial fibrillation with no history of dysrhythmia in this patient. He was on Coreg in the past and it is possible that the record is not up to date. In the ED he had sinus rhythm with sinus tachycardia and frequent unifocal PVCs which persisted through the night. He did have a slight bump in his troponin which did not change with serial enzymes. The patient is a poor historian but is more awake and alert after IV hydration in the ED. He also is beginning to have some movement in his left arm and leg which was flaccid previously. Patient's family was not present at the time of my exam but were in the ED and stated that the patient was not a DNR/DNI and wanted to be a full code with the patient not able to confirm this discrepancy therefore he remains a Full Code upon admission. Per granddaughter report, no prior h/o dysphagia and pt was eating a regular texture diet and thin liquids at home prior. Additional PMHx includes: Essential hypertension (Chronic) Hyperlipidemia (Acute) Hypothyroid (Chronic) RYAN (obstructive sleep apnea) (Chronic) PFO (patent foramen ovale) (Inactive) Stroke (Chronic) Current Level of Function & Reason for Referral: Pt is currently NPO. Pt was referred for a swallow evaluation to assess for dysphagia and aspiration risk given recent CVA. Precautions: Aspiration, Falls Barriers to Learning: Cognition. Pt also very easily distracted. Respiratory Function: WFL at this time. Pt did become SOB as evaluation continued however 02 sats remained above 93%. Supplemental Oxygen: None Posture/Positioning: Pt repositioned upright in bed, pt leaning to right requiring frequent repositioning. Per PT, pt unable/unsafe to stand and she would recommend rica if transferred out of bed. This EDI SPECIALIST recommends pt be out of bed to chair for all meals if possible given severity of motor planning deficits/apraxia with eating/swallowing tasks. ORAL MECHANISM EXAMINATION Dentition: Pt is currently edentulous however granddaughter reports pt does have upper and lower dentures (ill fitting) but that they are at home. She will have family bring them. Oral Hygiene: Poor. Pt with very dry oral mucosa, significant debri posterior tongue and hard palate, required extensive oral care by this EDI SPECIALIST to remove. EDI SPECIALIST spoke with nursing to ensure thorough and complete oral care at least 2-3x/day. Oral Structures: Unremarkable. Oral Function: Pt unable to follow directions for oral motor tasks due to severe oral apraxia. Oral function assessed more thoroughly within consistency trials. Strength: Appears adequate for consistencies tested Range of Motion: Appeard adequate for consistencies tested. Coordination: Moderate-severely impaired due to oral apraxia/motor planning deficits. Coordination significantly improved when pt assisted with hand over hand to eat/drink himself. Consistencies Tested: Thin liquids via open cup and straw, Puree, pudding. Did not test mechanical soft or regular due to significant fatigue as well as pt with no dentures present. Self-Feeding/Level of Assistance: Pt with severe motor planning deficits and oral apraxia. Groping noted throughout. Pt having difficulty opening mouth in response to spoon or cup or straw however once placed in hand and given hand over hand assistance, pt able to bring to his mouth and remove food from spoon though some discoordination still noted. Pt did best with straw sips when cup with straw placed in his hand and given hand over hand assistance. Unable to drink from open cup today due to motor planning deficits. Recommend pt be out of bed to chair for meals to facilitate better positioning over table and more natural eating posture and self feeding movements. This will also facilitate and overall safer and more effective swallow and reduce aspiration risk. Oral Phase: As stated, pt with most oral apraxia and motor planning deficits, no true strength or ROM deficits appreciated today with textures trialed. Rahat continue to monitor. Pharyngeal Phase: No overt s/s aspiration demonstrated on thin liquids, puree or pudding consistencies when assisted to feed self with hand over hand. Ongoing assessment needed. Esophageal Phase: Pt noted to belch frequently throughout evaluation. Unclear if pt has h/o GERD or is receiving PPI. Medication Administration: Recommend crush meds and give in applesauce or pudding. Pt/Caregiver/Staff Education: Education provided to pt and family regarding current status and recommendations. Nsg education provided regarding recommendations. 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 Pt presents with moderate-severe oral dysphagia characterized by the aforementioned deficits, placing him at risk for aspiration, malnutrition and dehydration. These risks can be reduced with implementation of a modified diet and implementation of safe swallow protocol/strategies. Pt would benefit from skilled EDI SPECIALIST services for dysphagia for diet modification analysis, establishment of and instruction in safe swallow protocol , ongoing diagnostic treatment, to facilitate safe/effective swallowing to meet nutrition and hydration needs PO. Rehab Potential: Good for goals stated. Short-Term Goals: 1. Pt will manage least restrictive diet with no overt s/s aspiration and minimal s/s oral dysphagia when following safe swallow protocol 100% of the time with assistance. Time Frame: 1 week Long-Term Goals: 1.Pt will maintain adequate nutrition and hydration PO with safe and effective swallowing as evidenced by no overt s/s dysphagia, stable weight and absence of pneumonia. Time Frame: 2 weeks Additional goals to be determined with further diagnostic treatment. Pt Goal: To go home PLAN Planned Treatment Interventions: Dysphagia treatment Frequency: 3-4/week Intensity: 45 minutes Duration: 2 weeks Discharge Plan: When goals met or pt reaches maximum functional potential. SWALLOWING RECOMMENDATIONS Solids: Puree Liquids: Thin liquids via lidded cup with straw Medication Administration: Crushed in applesauce/pudding Level of Assistance/Supervision: Strategies/Adaptations/AE: Direct 1:1 Supervision. Best if out of bed to chair however if must be in bed, must be completely upright with pillows for supports as needed. Assist pt with hand over hand assistance to feed self to promote relearning of motor patterns (this includes drinking as well). Safe size bites, pace rate of intake, complete swallows in between bites, alternate liquids every few bites, o upright 30 min post meals, check mouth at end of meal. Oral care after every meal. Charge Code: Clinical Swallow Evaluation Time In: 12:35 PM Time Out: 1:35 PM Total Time: 60 minutes
[2019-07-02] MEDS: PIPERACILLIN/TAZO 3.375 GM in Normal Saline 50 ML IVPB ×2 (15:27→20:08)
--- NOTE | 2019-07-02 16:00 | PTTR_ITS ---
Date of service: 07/02/19 Time of Service: 16:00 PT Notes Visit Reasons: RIGHT CVA,RHABDOMYOLYSIS,HTN,PAF 07/02/2019 SUBJECTIVE: Amandeep agreeable to work with PT. He notes that he is weak. Complains of pain throughout the left side especially through the left shoulder. OBJECTIVE: BED MOBILITY: Rolling: Max x 2 Supine to sit: Max x 2 Sit to supine: Max x 2 TRANSFERS/GAIT: Unable STATIC SITTING: Mod A throughout. Pt performs trunk leans to the left x 10 and forward and backwards x 10. LAQ performed on the right x 10. Sits at EOB x 10 minutes with Mod A and trunk lean to the right. ASSESSMENT: Pt unable to sit unsupported this afternoon. He does participate in some seated exercises and is able to communicate with better ease. Pt will benefit from continued skilled PT services for improvement in bed mobility and transfers as well as strengthening as he is able to tolerate. PLAN: Continue current POC. Treatment time: 15' [id number] Vanessa Mcqueen, INFANT AND TODDLER TEACHER
[2019-07-03] VITALS (13 sets, daily range): BP systolic 134–169; BP diastolic 70–101; PULSE 76–93; RESP 18–24; TEMP 36–37.9; O2SAT 96–98
--- NOTE | 2019-07-03 | DI.US_ITS ---
EXAM: US RENAL CLINICAL HISTORY: CHARLA ON CKD TECHNIQUE: Ultrasound performed using standard protocol. COMPARISON: RENAL ULTRASOUND(P) from 03/09/2013 FINDINGS: The right kidney measures 12.3 cm in length. There is a 2.7 centimeter cyst at the upper pole of the right kidney. No right-sided hydronephrosis is seen. The left kidney measures 13.8 cm in length. There is moderate left hydronephrosis. No renal calculi are visible. The prevoid bladder volume bree sured 83 cc. The ureteral jets were not visualized. Prostate volume is 51 cc. IMPRESSION: Moderate left hydronephrosis. Enlarged prostate. DATA REPOSITORY:
[2019-07-03] MEDS: PIPERACILLIN/TAZO 3.375 GM in Normal Saline 50 ML IVPB ×4 (02:16→19:34)
[2019-07-03] MEDS: Normal Saline 1,000 ML 150 ML IV (06:08)
[2019-07-03 07:35] LABS: Abs Immature Grans 0.04 k/cumm (0.0-0.09); Absolute Basophil Count 0.01 k/cumm (0.0-0.2); Absolute Eosinophil Count 0.01 k/cumm (0.0-0.7); Absolute Lymphocyte Count 0.59 k/cumm (1.2-3.4); Absolute Monocyte Count 0.88 k/cumm (0.11-0.7); Absolute Neutrophil Count 7.91 k/cumm (1.2-6.7); Basophils % 0.1; Eosinophils % 0.1; HCT 38.2 % (40.0-50.0); HGB 12.7 g/dL (13.5-17.5); Immature Grans % 0.4 %; Lymphocytes % 6.3; Mean Corp. HGB Concentration 33.2 g/dL (32.0-36.0); Mean Corpuscular Hemoglobin 31.2 pg (27.0-33.0); Mean Corpuscular Volume 93.9 fL (80-95); Mean Platelet Volume 11.4 fL (8.0-11.0); Monocytes % 9.3; Neutrophils % 83.8; Platelet Count 162 x1000/uL (130-400); RBC 4.07 m/cumm (4.50-6.00); RBC Distribution Width 15.5 % (11.8-14.1); White Blood Cell Count 9.44 k/cumm (4.4-10.8)
[2019-07-03 07:49] LABS: Anion Gap 13.5 mmol/L (3-11); BUN 33 mg/dL (7-18); CO2 18.5 mmol/L (21.0-32.0); Chloride 113 mmol/L (98-107); Creatine Kinase 135 U/L (39-308); Estimated GFR 27.71 (mL/min/1.73m2); Glucose 115 mg/dL (74-106); Magnesium 1.9 mg/dL (1.8-2.4); Potassium 3.6 mmol/L (3.5-5.1); Sodium 145 mmol/L (136-145)
[2019-07-03] MEDS: Refresh PLUS Eye Drops 0.4ml OU (07:58)
[2019-07-03] MEDS: Heparin 5,000 UNITS/ML VIAL 5000 UNITS SC ×2 (07:59→16:45)
[2019-07-03] MEDS: Aspirin 300 MG SUPP PR (07:59)
[2019-07-03] MEDS: Nystatin POWDER 60 GM JAR TP ×3 (08:48→19:34)
--- NOTE | 2019-07-03 09:25 | OT.INTREAT ---
Date of service: 07/03/19 Time of Service: 08:20 Occupational Therapy Notes Occupational Therapy Inpatient Treatment Note Date: 07/03/19 PRECAUTIONS: Fall, Standard SUBJECTIVE: Pt was lying in bed when OT arrived. He was distracted with conversation and his eyes wandered or closed when questions were being asked. OBJECTIVE: PAIN:c/o pain in (L) UE including digits were significantly tender with extension and flexion. FUNCTIONAL MOBILITY Rolling L/R: Max (A) x2 Bed-Chair: Soco lift max (A) x3 with support to (L) UE for functional mobility and to decrease pts pain EATING: Sitting in chair with support to back with pillows and legs elevated, pt (L) UE was placed positioned under arm with digits in extended position and arm placed in a slightly bent position. OT cued pt to grasp cup in his (R) UE and with support to his (R) elbow pt was able to bring cup to mouth with use of straw. Pt had poor eye contact and was easily distracted throughout process. Pt required mod-mx VC to close lips on to straw, once pt was able to facilitate this he did much better. Then pt was provided eggs and required vc and increased sips of fluid in between bites. Pt was able to tolerate eating routine well while OT was present. He did require vc but with (A) and tactile cues he was able to perform functional grasp and release with (R) UE. PLAN: OT will continue to progress pt towards goals established at initial evaluation. Pt requires mod-max vc for performance of basic movements to (R) /(L) UE. He is demonstrating an increased verbal communication. His eating routine takes increased performance time. He requires (A) with eating but is not a max (A) for eating as he can facilitate hand to mouth movements. TREATMENT CODES/TIME: [id number], 40 minutes (08:20) Maia Hoyt OTR/L [facility]
[2019-07-03 11:11] LABS: Lactate 1.2 mmol/L (0.6-1.4)
--- NOTE | 2019-07-03 11:17 | CMPROGNOTE_ITS ---
- If Service Date Differs Date of service: 07/03/19 Time of Service: 11:17 Care Management Progress Note S/O:Tyler is on bipap, he is not alert at this time. Referrals pending at [facility], and [facility]. Palliative care will see the patient today. A:Amandeep is a 78 year old male admitted with CVA P: Tyler will be discharged when medically ready per provider. Anticipate he will be discharged to a SNF at PT recommendations. CM provided SNF information from with a listing of local facilities in [place]. Transportation to be determine pending disposition.
[2019-07-03] MEDS: Acetaminophen 650 MG SUPP PR (12:14)
--- NOTE | 2019-07-03 14:15 | PTTR_ITS ---
Date of service: 07/03/19 Time of Service: 17:39 PT Notes Visit Reasons: RIGHT CVA,RHABDOMYOLYSIS,HTN,PAF Inpatient Physical Therapy Treatment Note [facility] 07/03/2019 SUBJECTIVE: Patient reports pain to body part that is touched. Pain level seems to be the same to bilateral upper/lower extremities even with the slightest movement. Patient tends to be emotional as well, wanting to talk with his daughters and kids as soon as possible. With persistent encouragement and persuasion, patient finally agreed to be moved. He notes that he is weak. Complains of pain throughout the left side especially through the left shoulder. OBJECTIVE: Telemetry monitoring continues to be in place. IV in the right UE. Left UE remains edematous. Left knee appears mildly swollen. BED MOBILITY: Rolling: Moderate assist of 2 Supine to sit:Moderate assist of 3 to with HOB elevated to 45 degrees Sit to supine: Moderate assist to of 3 with HOB elevated to 45 degrees Sit to stand: Maximum assist x 5 with patient refusing and/or having difficulty planning placement of body weight on her right UE/LE and pulling trunk up into extension despite maximal verbal cueing. Patient complains of severe pain all over his body with attempts at standing. Stand to sit: Maximum assist x 5 Maximum assist x 5 with patient refusing and/or having difficulty planning placement of body weight on her right UE/LE and pulling trunk up into extension despite maximal verbal cueing. Patient complains of severe pain all over his body with activity. TRANSFERS/GAIT: Total assist STATIC SITTING: Mod A initially for the first 2 minutes but was able to assume an upright position for the next 3 to 5 minutes without any issues of low back pain. ASSESSMENT: Patient continues to be limited by associated generalized body pain that is aggravated by slight movement and pressure to skin perhaps attributable to associated rhabdomyolysis and or hypersensitivity to pain resulting from the CVA process. Motivation is low. Motor apraxia along with hemianopsia significantly limit patient ability to participate effectively during sessions. PLAN: Will coordinate therapy sessions with nursing in order to ensure premedication for pain to maximize patient performance and participation. Patient will benefit from long term facility placement for continued skilled physical therapy services in order to progress mobility level, strength, and balance in preparation for a safe discharge to home. TREATMENT CODE/TIME: Session 1--[id number] x 32 minutes beginning at 8:25 AM; Session 2--[id number] x 35 minutes beginning at 14:15 p.m.
--- NOTE | 2019-07-03 15:19 | CHAPLAIN ---
Tyler has several family members in the room with him when I visited. He was in bed. He spoke in short sentences and was often emotional and teary while we talked. Tyler told me about being found on down at home and not being able to get up and being scared. Tyler is a member of the [employer] and he gave me permission to call the sikh and let his quality assurance qa lab technician, Rev. Luis Manuel Yung, know he is here. I left a message at the sikh. I offered a prayer with Tyler before leaving.
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
--- NOTE | 2019-07-03 16:22 | W.PM.PROGNOT ---
Date of Service Date of service: 07/03/19 Time of Service: 16:22 Assessment and Plan Assessment and plan (1) Acute right MCA stroke: Status: Acute Assessment and plan: with dysarthria, L-sided neglect, L hemiparesis, encephalopathy. No evidence of hemorrhagic conversion, but MRI does confirm a large territory CVA Transition asa to PO. Does have a PFO, confirmed by echo - but no evidence of DVT, so parodoxical embolism is less likely. BP's are better today - would not intensify antihypertensives at this time. Start statin as rhabdomyolysis resolved. Await neurology consult, discussion of goals of care with palliative care tomorrow. Will need to go to SNF. (2) Encephalopathy acute: Status: Acute Assessment and plan: Could be due to developing brain edema, possible progression of stroke, suspected aspiration pneumonia. Continue zosyn. D/c vanco (3) Aspiration pneumonia: Status: Suspected Assessment and plan: Suspected, based on noticed dysarthria, elevated procalcitonin, patient's report of shortness of breath. Continue zosyn day 2, d/c vanco. Continue modified diet. Monitor procalcitonin. (4) Dysarthria: Status: Acute Assessment and plan: Result of stroke. Continue speech therapy (5) Hydronephrosis, left: Status: Acute Assessment and plan: Needs a murray. Suspect that's why the patient has an CHARLA. May benefit from a murray catheter (6) Left upper extremity swelling: Status: Acute Assessment and plan: DVT ruled out. Likely due to dependent edema (7) Rhabdomyolysis: Status: Resolved Assessment and plan: Decrease IVF. Ok to start statin. Qualifiers: Rhabdomyolysis type: traumatic Encounter type: initial encounter Qualified Code(s): T79.6XXA - Traumatic ischemia of muscle, initial encounter (8) Essential hypertension: Status: Chronic Assessment and plan: BP's trending down on their own. Would not start any new antihypertensives at this time. (9) RYAN (obstructive sleep apnea): Status: Chronic Assessment and plan: Continue CPAP with naps/HS (10) PFO (patent foramen ovale): Status: Chronic Assessment and plan: Confirmed by echo - possible consideration for anticoagulation at a later date. (11) Ambulatory dysfunction: Status: Acute Assessment and plan: PT/OT consulted. Will require SNF. (12) Obesity (BMI 35.0-39.9 without comorbidity): Status: Chronic Assessment and plan: when/if patient is able, he should attempt to lose weight. (13) DVT prophylaxis: Status: Acute Assessment and plan: heparin SC (14) Discharge planning issues: Status: Acute Assessment and plan: Full code Palliative care consulted to discuss goals of care - family meeting tomorrow. Anticipate SNF on discharge. Subjective Subjective Interval history since last seen: Mr Sosa complains of back pain. Denies headache, dizziness, chest pain, shortness of breath, nausea. Seen by palliative care today - family meeting planned for noon. Exam Narrative Exam Narrative: General: Elderly obese male, lethargic, asleep on CPAP/BiPAP, arousable, answers questons appropriately but with a delay; appears more dysarthric today; L-sided neglect HEENT: Keeps eyes closed, able to open them on command, but not long enough for me to assess his extraocular movements; dry MM Heart: RRR, no m/r/g Lungs: CTAB/diminished Abdomen: soft, nontender, nondistended Extremities: Trace edema BLE's and LUE. Objective Objective Clinical Data: Abnormal lab results 07/03/19 07/03/19 Range/Units 06:45 06:45 RBC 4.07 L (4.50-6.00) m/cumm Hgb 12.7 L (13.5-17.5) g/dL Hct 38.2 L (40.0-50.0) % RDW 15.5 H (11.8-14.1) % MPV 11.4 H (8.0-11.0) fL Absolute Neutrophils 7.91 H (1.2-6.7) k/cumm Absolute Lymphocytes 0.59 L (1.2-3.4) k/cumm Absolute Monocytes 0.88 H (0.11-0.7) k/cumm Chloride 113 H (98-107) mmol/L Carbon Dioxide 18.5 L (21.0-32.0) mmol/L Anion Gap 13.5 H (3-11) mmol/L BUN 33 H (7-18) mg/dL Creatinine 2.30 H D (0.70-1.30) mg/dL Glucose 115 H (74-106) mg/dL Calcium 8.0 L (8.5-10.1) mg/dL Vital Signs Temperature 37.7 C H 07/03/19 12:14 Temperature Source Tympanic 07/03/19 11:05 Pulse 78 07/03/19 11:05 Pulse Rhythm Irregular 07/03/19 14:20 Pulse 94 H 07/01/19 00:01 Respiratory Rate 22 07/03/19 11:05 Respiratory Effort 07/03/19 14:20 Respiratory Depth Deep 07/03/19 14:20 Respiratory Pattern Tachypnea 07/03/19 14:20 Blood Pressure 165/89 H 07/03/19 11:05 Blood Pressure Mean 105 07/01/19 00:01 Pulse Oximetry 97 07/03/19 11:05 Oxygen Delivery Method Cpap 07/03/19 11:05 Oxygen Flow Rate 0 07/03/19 11:05 Fraction of Inspired Oxygen (FIO2) 21 07/03/19 10:13 Pain Level 8 07/03/19 11:05 Comment Per monitor pt's pulse is 78 bpm, but on palpation it was 46 bpm. 07/03/19 11:05 Intake & Output 07/02/19 07/03/19 07/03/19 23:59 11:59 23:59 Intake Total 1500 / 3487.5 1450 / 1450 Balance 1500 / 2587.5 1450 / 1450 Weight 106.7 kg Intake: IV 1300 / 3237.5 1350 / 1350 Oral 200 / 250 100 / 100 Other: Urine Appearance Clear Clear Comment pt was grossly incontinent Stool Size Small Stool Characteristics Soft Brown Voiding Methods Diaper Diaper Diaper Incontinent Incontinent Incontinent Laboratory Results WBC 9.44 k/cumm (4.4-10.8) 07/03/19 06:45 RBC 4.07 m/cumm (4.50-6.00) L 07/03/19 06:45 Hgb 12.7 g/dL (13.5-17.5) L 07/03/19 06:45 Hct 38.2 % (40.0-50.0) L 07/03/19 06:45 MCV 93.9 fL (80-95) 07/03/19 06:45 MCH 31.2 pg (27.0-33.0) 07/03/19 06:45 MCHC 33.2 g/dL (32.0-36.0) 07/03/19 06:45 RDW 15.5 % (11.8-14.1) H 07/03/19 06:45 Plt Count 162 x1000/uL (130-400) 07/03/19 06:45 MPV 11.4 fL (8.0-11.0) H 07/03/19 06:45 Immature Gran % 0.4 % 07/03/19 06:45 Neutrophils % 83.8 07/03/19 06:45 Lymphocytes % 6.3 07/03/19 06:45 Monocytes % 9.3 07/03/19 06:45 Eosinophils % 0.1 07/03/19 06:45 Basophils % 0.1 07/03/19 06:45 Absolute Neutrophils 7.91 k/cumm (1.2-6.7) H 07/03/19 06:45 Absolute Lymphocytes 0.59 k/cumm (1.2-3.4) L 07/03/19 06:45 Absolute Monocytes 0.88 k/cumm (0.11-0.7) H 07/03/19 06:45 Absolute Eosinophils 0.01 k/cumm (0.0-0.7) 07/03/19 06:45 Absolute Basophils 0.01 k/cumm (0.0-0.2) 07/03/19 06:45 Differential Comment Plt morph reviewed 07/02/19 06:15 RBC Morphology Normal 07/02/19 06:15 PT 11.3 sec (9.3-11.0) H 06/30/19 21:24 INR 1.1 (0.9-1.1) 06/30/19 21:24 APTT 24.6 sec (21.0-31.4) 06/30/19 21:24 VBG pH 7.38 (7.35-7.45) 06/30/19 23:00 VBG pCO2 38 mm/Hg (34-47) 06/30/19 23:00 VBG pO2 36 mm/Hg (28-44) 06/30/19 23:00 VBG HCO3 22 mmol/L (22-28) 06/30/19 23:00 VBG Total CO2 19 mmol/L (22-29) L 06/30/19 23:00 VBG O2 Saturation 68 % (70-80) L 06/30/19 23:00 VBG Base Excess -3.1 mmol/L (-3-3) L 06/30/19 23:00 Sodium 145 mmol/L (136-145) 07/03/19 06:45 Potassium 3.6 mmol/L (3.5-5.1) 07/03/19 06:45 Chloride 113 mmol/L (98-107) H 07/03/19 06:45 Carbon Dioxide 18.5 mmol/L (21.0-32.0) L 07/03/19 06:45 Anion Gap 13.5 mmol/L (3-11) H 07/03/19 06:45 BUN 33 mg/dL (7-18) H 07/03/19 06:45 Creatinine 2.30 mg/dL (0.70-1.30) H D 07/03/19 06:45 Estimated GFR/1.73 m2 27.71 (mL/min/1.73m2) 07/03/19 06:45 Glucose 115 mg/dL (74-106) H 07/03/19 06:45 Hemoglobin A1c 5.6 % (3.8-5.6) 07/02/19 06:15 Lactate 1.2 mmol/L (0.6-1.4) 07/03/19 10:50 Calcium 8.0 mg/dL (8.5-10.1) L 07/03/19 06:45 Magnesium 1.9 mg/dL (1.8-2.4) 07/03/19 06:45 Total Bilirubin 1.9 mg/dL (0.2-1.0) H 07/01/19 05:25 AST 54 U/L (15-37) H 07/01/19 05:25 ALT 36 U/L (16-63) 07/01/19 05:25 Alkaline Phosphatase 67 U/L (46-116) 07/01/19 05:25 Creatine Kinase 135 U/L (39-308) 07/03/19 06:45 Troponin I 0.08 ng/Ml (<0.06) H* 07/01/19 05:25 NT-Pro-B Natriuret Pep 974 pg/mL (<300) H 06/30/19 21:24 Total Protein 6.8 g/dL (6.4-8.2) 07/01/19 05:25 Albumin 3.2 g/dL (3.4-5.0) L 07/01/19 05:25 Triglycerides 109 mg/dL (<150) 07/02/19 06:15 Total Cholesterol 116 mg/dL (<200) 07/02/19 06:15 LDL Cholesterol, Calc 63 mg/dL (<100) 07/02/19 06:15 HDL Cholesterol 32 mg/dL (40-60) L 07/02/19 06:15 Procalcitonin 0.3 ng/mL 07/02/19 08:35 TSH 1.79 uIU/mL (0.36-3.74) 07/02/19 06:15 Urine Color Yellow (Yellow) 07/02/19 08:45 Urine Clarity Clear (Clear) 07/02/19 08:45 Urine pH 6.0 (5-8) 07/02/19 08:45 Ur Specific [place] >= 1.030 (1.005-1.025) H 07/02/19 08:45 Urine Protein 30 mg/dL (Negative) H 07/02/19 08:45 Urine Ketones Trace mg/dL (Negative) H 07/02/19 08:45 Urine Blood Large (Negative) H 07/02/19 08:45 Urine Nitrite Negative (Negative) 07/02/19 08:45 Urine Bilirubin Negative (Negative) 07/02/19 08:45 Urine Urobilinogen 2.0 EU/dL (Up TO 0.2) H 07/02/19 08:45 Ur Leukocyte Esterase Negative (Negative) 07/02/19 08:45 Urine RBC >50 HPF (0-2) H 07/02/19 08:45 Urine WBC 0-2 HPF (0-5) 07/02/19 08:45 Ur Epithelial Cells Rare HPF (Negative) 07/02/19 08:45 Urine Crystals Rare triple phos HPF (Negative) 07/02/19 08:45 Urine Bacteria Rare HPF (Negative) 07/02/19 08:45 Urine Casts Negative LPF (Negative) 07/02/19 08:45 Urine Mucus Negative (Negative) 07/02/19 08:45 Urine Other (Negative) 07/02/19 08:45 Ur Culture Indicated? No 07/02/19 08:45 Urine Glucose Negative mg/dL (Negative) 07/02/19 08:45 US renal: Moderate left hydronephrosis. Enlarged prostate. MRI brain: Large area of acute infarct in the right parietal and small portion of the adjacent right temporal lobes.
--- NOTE | 2019-07-03 16:53 | W.NUTCONSULT ---
Date of service: 07/03/19 Time of Service: 16:53 Nutritional Consult ASSESSMENT: 78 year old male s/p encephalopathy acute, acute right MCA stroke, HTN, with dysphagia and aspiration PNA. LUBRICATION SUPERVISOR has cleared [place] for Puree Diet but PO intake has been poor (10-25%). Needs assistance with meals. BMI indicates class 2 obesity. Estimated needs based on adjusted body weight: 9939-3269 kcal, 80-96 g protein, 2400 ml fluid. Current intake not meeting nutrient and fluid needs at this time. Recommend Ensure BID and will monitor po intake daily and adjust as able. NUTRITIONAL DIAGNOSIS: inadequate nutrient and fluid intake INTERVENTION: 240 ml Ensure BID MONITORING AND EVALUATION: po intake, labs, weight will monitor daily Time Spent in Nutritional Counseling and Treatment: 20 min spent face to face
[2019-07-03] MEDS: Normal Saline 1,000 ML 75 ML IV (17:51)
[2019-07-03] MEDS: Atorvastatin 40 MG TAB PO (19:34)
[2019-07-03] MEDS: Acetaminophen 325 MG TAB 650 MG PO (20:19)
[2019-07-04] VITALS (10 sets, daily range): BP systolic 141–196; BP diastolic 68–123; PULSE 45–97; RESP 21–23; TEMP 37.1–37.4; O2SAT 95–96
[2019-07-04] MEDS: Heparin 5,000 UNITS/ML VIAL 5000 UNITS SC ×3 (00:14→17:17)
[2019-07-04] MEDS: PIPERACILLIN/TAZO 3.375 GM in Normal Saline 50 ML IVPB ×4 (02:02→20:24)
[2019-07-04] MEDS: Metoprolol 5 MG/5 ML VIAL 2.5 MG IVP ×2 (04:46→06:30)
[2019-07-04] MEDS: Acetaminophen 325 MG TAB 650 MG PO ×2 (05:38→09:36)
[2019-07-04 07:38] LABS: Abs Immature Grans 0.02 k/cumm (0.0-0.09); Absolute Basophil Count 0.02 k/cumm (0.0-0.2); Absolute Eosinophil Count 0.09 k/cumm (0.0-0.7); Absolute Lymphocyte Count 0.57 k/cumm (1.2-3.4); Absolute Monocyte Count 0.68 k/cumm (0.11-0.7); Absolute Neutrophil Count 7.67 k/cumm (1.2-6.7); Basophils % 0.2; HCT 38.3 % (40.0-50.0); HGB 12.6 g/dL (13.5-17.5); Immature Grans % 0.2 %; Lymphocytes % 6.3; Mean Corp. HGB Concentration 32.9 g/dL (32.0-36.0); Mean Corpuscular Volume 94.1 fL (80-95); Mean Platelet Volume 11.5 fL (8.0-11.0); Monocytes % 7.5; Neutrophils % 84.8; Platelet Count 190 x1000/uL (130-400); RBC 4.07 m/cumm (4.50-6.00); RBC Distribution Width 15.7 % (11.8-14.1); White Blood Cell Count 9.05 k/cumm (4.4-10.8)
[2019-07-04 07:54] LABS: Anion Gap 12.6 mmol/L (3-11); BUN 39 mg/dL (7-18); CO2 18.4 mmol/L (21.0-32.0); CREATININE 2.46 mg/dL (0.70-1.30); Calcium 7.7 mg/dL (8.5-10.1); Chloride 115 mmol/L (98-107); Estimated GFR 25.64 (mL/min/1.73m2); Glucose 120 mg/dL (74-106); Potassium 3.6 mmol/L (3.5-5.1); Sodium 146 mmol/L (136-145)
[2019-07-04] MEDS: Normal Saline 1,000 ML 75 ML IV (07:59)
[2019-07-04] MEDS: Levothyroxine 175 MCG TAB PO (08:36)
[2019-07-04] MEDS: Allopurinol 300 MG TAB PO (08:37)
[2019-07-04] MEDS: Aspirin 325 MG TAB PO (08:37)
--- NOTE | 2019-07-04 08:50 | PCPN_ITS ---
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 SOn Tyrone also present. Based on her knowledge of his medical and life preferences, she felt that having his CODE status be DNR/DNI was more in keeping with his goals. He did try to answer and seemed to agree with her, but at this time I think he needs his DPOA to be making decisions for him. He does still want limited treatments. 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 He has had multiple strokes in the past and has done better than anticpated. Already he has improved since 07/02. (3) Thalamic pain syndrome: Status: Chronic Assessment and plan: pain management may prove challenging would add anti-seizure meds as next layer of treatment if needed (4) Dysphagia: Status: Acute Assessment and plan: did choke on water during my visit advised not to give him sips from a glass at this time does fine with tablespoons of water or other liquids offered to him (5) Left hemiparesis: Status: Acute Assessment and plan: with berto-neglect unable to move his left arm at all (6) Berto-neglect of left side: Status: Acute Assessment and plan: does not perceive his left side at all at this time advised that when he goes to rehab, needs bed that would allow care from his right primarily (7) Right parietal lobe lesion: Status: Acute Assessment and plan: large stroke recently identified PFO not a surgical candidate for repair of same Subjective Subjective Patient reports: still having pain Interval history since last seen: I saw Tyler with his estranged , Karina carson, who remains his medical DPOA, and his son Tyrone. Pipefitter Helper Catia and DATA WAREHOUSE ANALYST Mary Morse joined us. We planned a family meeting to address Tyler's code status and goals of care. He was able to speak more today, using his own words to report significant pain. He was having trouble swallowing still, choking on a glass of water his son offered him. BUt he did eat much more today and last evening. He is unlikely to need a feeding tube, considering this. Big issues for today: improved pain control GOC, with COLST and CODE STATUS decisions Exam Narrative Exam Narrative: Physical Exam: Gen: Patient of apparent stated age, moderate distress due to pain. + ALLODYNIA, even slight touch causes pain Head and face: no facial or cranial abnormalities Neck: Supple, no meningismus, no occipital tenderness CV: RRR, distant heart sounds Resp: CTA B/L Abd: soft, nontender, nondistended Ext: No edema. No clubbing or cyanosis. No bony deformity. Neuro AAOxself only, distractable; mild-moderate dysarthria psych: emotionally labile, crying on and off skin: some bruising, dry Objective Objective Clinical Data: Abnormal lab results 07/05/19 07/05/19 Range/Units 07:03 07:03 RBC 4.43 L (4.50-6.00) m/cumm RDW 15.8 H (11.8-14.1) % MPV 11.6 H (8.0-11.0) fL Chloride 113 H (98-107) mmol/L Carbon Dioxide 16.0 L (21.0-32.0) mmol/L Anion Gap 16.0 H (3-11) mmol/L BUN 39 H (7-18) mg/dL Creatinine 2.41 H (0.70-1.30) mg/dL Vital Signs Temperature 99.9 F H 07/05/19 07:55 Temperature Source Tympanic 07/05/19 07:55 Pulse 68 07/05/19 07:55 Pulse Rhythm Irregular 07/04/19 20:00 Pulse 94 H 07/01/19 00:01 Respiratory Rate 20 07/05/19 07:55 Respiratory Effort 07/04/19 20:00 Respiratory Depth Normal 07/04/19 20:00 Respiratory Pattern Normal 07/04/19 20:00 Blood Pressure 207/128 H 07/05/19 07:55 Blood Pressure Mean 105 07/01/19 00:01 Pulse Oximetry 97 07/05/19 07:55 Oxygen Delivery Method Room Air 07/05/19 07:55 Oxygen Flow Rate 0 07/05/19 07:55 Fraction of Inspired Oxygen (FIO2) 21 07/05/19 08:40 Pain Level 10 07/05/19 08:30 Comment 07/04/19 23:25 Intake & Output 07/04/19 07/04/19 07/05/19 11:59 23:59 11:59 Intake Total 1862.5 / 2442.5 580 / 2442.5 50 / 50 Output Total 875 / 1050 175 / 1050 950 / 950 Balance 987.5 / 1392.5 405 / 1392.5 -900 / -900 Weight 231 lb 7.766 oz Intake: IV 1382.5 / 1482.5 100 / 1482.5 50 / 50 Oral 480 / 960 480 / 960 Output: Urine 875 / 1050 175 / 1050 950 / 950 Other: Urine Color Dark Carmelita Yellow Dark Carmelita Urine Appearance Clear Clear Cloudy Urine Odor None Voiding Methods Indwelling Catheter Laboratory Results WBC 8.12 k/cumm (4.4-10.8) 07/05/19 07:03 RBC 4.43 m/cumm (4.50-6.00) L 07/05/19 07:03 Hgb 13.6 g/dL (13.5-17.5) 07/05/19 07:03 Hct 41.3 % (40.0-50.0) 07/05/19 07:03 MCV 93.2 fL (80-95) 07/05/19 07:03 MCH 30.7 pg (27.0-33.0) 07/05/19 07:03 MCHC 32.9 g/dL (32.0-36.0) 07/05/19 07:03 RDW 15.8 % (11.8-14.1) H 07/05/19 07:03 Plt Count 181 x1000/uL (130-400) 07/05/19 07:03 MPV 11.6 fL (8.0-11.0) H 07/05/19 07:03 Immature Gran % 0.2 % 07/04/19 07:15 Neutrophils % 84.8 07/04/19 07:15 Lymphocytes % 6.3 07/04/19 07:15 Monocytes % 7.5 07/04/19 07:15 Eosinophils % 1.0 07/04/19 07:15 Basophils % 0.2 07/04/19 07:15 Absolute Neutrophils 7.67 k/cumm (1.2-6.7) H 07/04/19 07:15 Absolute Lymphocytes 0.57 k/cumm (1.2-3.4) L 07/04/19 07:15 Absolute Monocytes 0.68 k/cumm (0.11-0.7) 07/04/19 07:15 Absolute Eosinophils 0.09 k/cumm (0.0-0.7) 07/04/19 07:15 Absolute Basophils 0.02 k/cumm (0.0-0.2) 07/04/19 07:15 Differential Comment Plt morph reviewed 07/02/19 06:15 RBC Morphology Normal 07/02/19 06:15 PT 11.3 sec (9.3-11.0) H 06/30/19 21:24 INR 1.1 (0.9-1.1) 06/30/19 21:24 APTT 24.6 sec (21.0-31.4) 06/30/19 21:24 VBG pH 7.38 (7.35-7.45) 06/30/19 23:00 VBG pCO2 38 mm/Hg (34-47) 06/30/19 23:00 VBG pO2 36 mm/Hg (28-44) 06/30/19 23:00 VBG HCO3 22 mmol/L (22-28) 06/30/19 23:00 VBG Total CO2 19 mmol/L (22-29) L 06/30/19 23:00 VBG O2 Saturation 68 % (70-80) L 06/30/19 23:00 VBG Base Excess -3.1 mmol/L (-3-3) L 06/30/19 23:00 Sodium 145 mmol/L (136-145) 07/05/19 07:03 Potassium 4.1 mmol/L (3.5-5.1) 07/05/19 07:03 Chloride 113 mmol/L (98-107) H 07/05/19 07:03 Carbon Dioxide 16.0 mmol/L (21.0-32.0) L 07/05/19 07:03 Anion Gap 16.0 mmol/L (3-11) H 07/05/19 07:03 BUN 39 mg/dL (7-18) H 07/05/19 07:03 Creatinine 2.41 mg/dL (0.70-1.30) H 07/05/19 07:03 Estimated GFR/1.73 m2 26.26 (mL/min/1.73m2) 07/05/19 07:03 Glucose 106 mg/dL (74-106) 07/05/19 07:03 Hemoglobin A1c 5.6 % (3.8-5.6) 07/02/19 06:15 Lactate 1.2 mmol/L (0.6-1.4) 07/03/19 10:50 Calcium 8.5 mg/dL (8.5-10.1) 07/05/19 07:03 Magnesium 2.0 mg/dL (1.8-2.4) 07/05/19 07:03 Total Bilirubin 1.9 mg/dL (0.2-1.0) H 07/01/19 05:25 AST 54 U/L (15-37) H 07/01/19 05:25 ALT 36 U/L (16-63) 07/01/19 05:25 Alkaline Phosphatase 67 U/L (46-116) 07/01/19 05:25 Creatine Kinase 135 U/L (39-308) 07/03/19 06:45 Troponin I 0.08 ng/Ml (<0.06) H* 07/01/19 05:25 NT-Pro-B Natriuret Pep 974 pg/mL (<300) H 06/30/19 21:24 Total Protein 6.8 g/dL (6.4-8.2) 07/01/19 05:25 Albumin 3.2 g/dL (3.4-5.0) L 07/01/19 05:25 Triglycerides 109 mg/dL (<150) 07/02/19 06:15 Total Cholesterol 116 mg/dL (<200) 07/02/19 06:15 LDL Cholesterol, Calc 63 mg/dL (<100) 07/02/19 06:15 HDL Cholesterol 32 mg/dL (40-60) L 07/02/19 06:15 Procalcitonin 0.3 ng/mL 07/02/19 08:35 TSH 1.79 uIU/mL (0.36-3.74) 07/02/19 06:15 Urine Color Yellow (Yellow) 07/02/19 08:45 Urine Clarity Clear (Clear) 07/02/19 08:45 Urine pH 6.0 (5-8) 07/02/19 08:45 Ur Specific [place] >= 1.030 (1.005-1.025) H 07/02/19 08:45 Urine Protein 30 mg/dL (Negative) H 07/02/19 08:45 Urine Ketones Trace mg/dL (Negative) H 07/02/19 08:45 Urine Blood Large (Negative) H 07/02/19 08:45 Urine Nitrite Negative (Negative) 07/02/19 08:45 Urine Bilirubin Negative (Negative) 07/02/19 08:45 Urine Urobilinogen 2.0 EU/dL (Up TO 0.2) H 07/02/19 08:45 Ur Leukocyte Esterase Negative (Negative) 07/02/19 08:45 Urine RBC >50 HPF (0-2) H 07/02/19 08:45 Urine WBC 0-2 HPF (0-5) 07/02/19 08:45 Ur Epithelial Cells Rare HPF (Negative) 07/02/19 08:45 Urine Crystals Rare triple phos HPF (Negative) 07/02/19 08:45 Urine Bacteria Rare HPF (Negative) 07/02/19 08:45 Urine Casts Negative LPF (Negative) 07/02/19 08:45 Urine Mucus Negative (Negative) 07/02/19 08:45 Urine Other (Negative) 07/02/19 08:45 Ur Culture Indicated? No 07/02/19 08:45 Urine Glucose Negative mg/dL (Negative) 07/02/19 08:45
[2019-07-04] MEDS: Nystatin POWDER 60 GM JAR TP ×3 (09:37→20:26)
--- NOTE | 2019-07-04 09:57 | OTTR_ITS ---
Date of service: 07/04/19 Time of Service: 09:15 Occupational Therapy Notes Occupational Therapy Inpatient Treatment Note Date: 07/04/19 PRECAUTIONS: Fall, Standard SUBJECTIVE: Pt was lying in bed when OT arrived. He is hyper-sensitive to all functional ROM and palpation today. OBJECTIVE: PAIN: c/o pain full body with any functional movement and even in static position. BATHING: Sitting in bed with max (A) support to trunk Upper Body: (I) to wash face with max (A) set up mod vc for performance, no c/o pain in (B) UE with this. Pt utilized (R) UE for performance. With [place] and mod vc pt was bring (R) UE to (L) shoulder but could not perform bathing routine. Lower Body: NT at todays session. DRESSING: NT GROOMING: Sitting in bed pt was able to bring comb to hair with mod vc and tactile (A). He did require mod (A) for brushing hair. EATING: While working with CONTROL SYSTEM MANAGER pt was able to demonstrate grasp of cup and bring towards mouth with tactile touch and vc. Functionally pt is able to bring hand to mouth and requires tactile (A) for (R) elbow. He can utilize a straw for sipping liquids from a cup. ASSESSMENT/PLAN: Pt is demonstrating a significant (L) side neglect. OT does recommend that when working with pt that standing on the (L) side of pts body will only help decrease this neglect. Pt is distracted and functionally requires vc to stay on task. OT feels that pt demonstrated an improved (R) UE ROM today and was able to wash his face with vc. He is unable to follow multi-step commands as he cognitively cannot process more than one-steps at this time. His (L) UE should remain on pillow in supportive position this will decrease the risk for contracture in (L) shoulder, elbow and digits. Pain is the limiting factor in pts functional (I) at this time. He is not able to perform ROM with (L) UE due to weakness and his core stability is poor at this time and requires (A) in the sitting position for functional ADLs/IADLs. TREATMENT CODES/TIME: [id number], 30 minutes (09:15) Maia Hoyt, OTR/L [facility]
--- NOTE | 2019-07-04 09:58 | W.SPEECHPG ---
Date of service: 07/04/19 Time of Service: 09:30 Speech Therpy Note Note: DERRICKMAN HELPER Treatment Note Date: 07/04/19 Time: 9:30 am Subjective: Pt was sitting up in bed, awake and alert. Nsg/therapy report pt c/o significant pain entire despite no evidence of acute injury. Nsg reports pt managing puree and thin liquids though requires assist. Objective: Pt will manage least restrictive diet with no overt s/s aspiration and minimal s/s oral dysphagia when following safe swallow strategies with assistance. Assessment: Oral hygiene improved today though oral mucosa dry. Pt continues to present with severe s/s oral apraxia/motor planning deficits. With tactile cues for hand over hand assistance, pt able to bring cup with straw to mouth, round lips on straw and withdraw fluid. Pt managing thin liquids with consecutive swallows with no overt s/s aspiration. Pt did have more difficulty when DERRICKMAN HELPER presented cup alone (without hand over hand), with groping noted bringing lips to straw. Oral motor coordination and motor planning targeting with popsicle today. Pt required intials tactile cues to grasp stick and bring to mouth but was then able to continue independently. Increased labial and lingual movements noted, with pt lateralizing tongue to both sides. Trialed pts dentures in order to trial increased textures however pt demonstrating hypersensitive gag reflex even when assisted to put them in. Will re-attempt next session. Plan: COntinue with puree solids and thin liquids via straw or open cup, providing tactile cues/hand over hand assistance to facilitate motor planning. Continue per DERRICKMAN HELPER POC.
[2019-07-04] MEDS: Metoprolol 25 MG TAB PO (11:45)
[2019-07-04] MEDS: MORPHine 2 MG/ML SYR 1 MG IVP ×4 (11:52→17:16)
--- NOTE | 2019-07-04 12:32 | PTTR_ITS ---
Date of service: 07/04/19 Time of Service: 10:02 PT Notes Visit Reasons: RIGHT CVA,RHABDOMYOLYSIS,HTN,PAF PT Inpatient Treatment Note 07/04/2019 SUBJECTIVE: Patient continues to report pain hypersentivity to touch. Pain level remains high with patient continuing to avoid any kind of movement. Patient did say he wanted to call his daughters Opal or Alexa. Again with persistent encouragement and persuasion, patient finally agreed to be moved. He moans and groans with bed mobility tasks and with the slightest skin pressure. OBJECTIVE: Telemetry monitoring continues to be in place. IV in the right UE. Left UE remains edematous but not warm nor erythematous. Left knee still mildly swollen. BED MOBILITY: Rolling: Moderate assist of 2 Supine to sit:Moderate assist of 3 to with HOB elevated to 45 degrees Sit to supine: Moderate assist to of 3 with HOB elevated to 45 degrees Sit to stand: Maximum assist x 5 with patient refusing and/or having difficulty motor planning for placement of body weight on her right UE/LE as well as with pulling trunk up into extension despite maximal verbal cueing. Patient complains of severe pain all over his body with attempts at standing. Stand to sit: Maximum assist x 5, in the afternoon maximum assist x 4 with patient refusing and/or having difficulty planning placement of body weight on her right UE/LE and pulling trunk up into extension despite maximal verbal cueing. Patient complained of severe pain all over his body with activity. In the afternoon trial, patient was able to put minimal pressure on his right LE and was able to elevate his bottom a little bit higher off the bed but complained of discomoft. TRANSFERS/GAIT: Total assist STATIC SITTING: Mod A initially for the first 3-4 minutes but was able to assume an upright position for about 10-15 minutes without any issues of low back pain. When attempted to move R LE, patient groaned in pain in the morning session but managed to do 3 reps of partial LAQs x 3 with maximal cueing. ASSESSMENT: Patient continues to be limited by associated generalized body pain that is aggravated by slight movement and pressure to skin perhaps attributable to associated rhabdomyolysis and or hypersensitivity to pain resulting from the CVA process. Motivation is low. Motor apraxia along with hemianopsia both significantly limit patient ability to participate effectively during sessions. PLAN: Will continue coordinate therapy sessions with nursing in order to ensure pre-medication for pain to maximize patient performance and participation. Will update MD about hyperalgesia response to movement. Patient will benefit from halfway facility placement for continued skilled physical therapy services in order to progress mobility level, strength, and balance in preparation for a safe discharge to home. TREATMENT CODE/TIME: Session 1--[id number] x 23 minutes beginning at 10:02 AM; Session 2--[id number] x 35 minutes beginning at 14:40p.m.
[2019-07-04] MEDS: fentaNYL 12 MCG PATCH TD (12:39)
[2019-07-04] MEDS: Refresh PLUS Eye Drops 0.4ml OU (13:17)
--- NOTE | 2019-07-04 15:40 | PDOC.CMPRO ---
- If Service Date Differs Date of service: 07/04/19 Time of Service: 15:40 Care Management Progress Note S/O:Tyler is doing much better today. He is able to converse and appears alert and oriented. He is taking sips of water and was able to eat most of his breakfast . Amandeep states that his entire body hurts. He has been receiving morphine prn but it has not been managing his pain so the frequency has been increased to 1mg q [address] Anguiano also ordered a Fentanyl patch. A family meeting (Palliative Care Consult) was held with Loren, Amandeep's , their son Florin, Dr. Anguiano and CM. A new COLST form was completed and filed. Amandeep has been accepted at [facility], when medically ready. A:Amandeep is a 78 year old male admitted with CVA P: Tyler will be discharged to a SNF when medically ready. at PT recommendations. CM provided SNF information from with a listing of local facilities in [place]. [facility] had made a bed offer. Transportation to be determine pending disposition. CM will continue to follow and to support patient and family.
--- NOTE | 2019-07-04 15:43 | CHAPLAIN ---
Today I spoke with Tyler's son, Florin, and Tyler's , Loren. (Tyler and Loren are estranged, although Loren is still Tyler's DPOA for health care. Florin said the family had a good conversation with Palliative Care Dr. Anguiano. Tyler is a part of the [employer]. His solution maker, Rev. Luis Manuel Yung is sick and unable to visit, but has been in touch with Florin and one of Tyler's daughters.
--- NOTE | 2019-07-04 16:23 | W.PM.PROGNOT ---
Date of Service Date of service: 07/04/19 Time of Service: 16:23 Assessment and Plan Assessment and plan (1) Essential hypertension: Start date: 07/04/19 Start time: 16:28 Status: Chronic Assessment and plan: BP elevated. Start BB BID and monitor. (2) Rhabdomyolysis: Start date: 07/04/19 Start time: 16:29 Status: Resolved Assessment and plan: Resolved. Decrease IVF but continue, not taking PO very well. Lipitor 40 mg PO. Qualifiers: Rhabdomyolysis type: traumatic Encounter type: initial encounter Qualified Code(s): T79.6XXA - Traumatic ischemia of muscle, initial encounter (3) RYAN (obstructive sleep apnea): Start date: 07/04/19 Start time: 16:29 Status: Chronic Assessment and plan: Continue CPAP with naps/HS (4) Acute right MCA stroke: Start date: 07/04/19 Start time: 16:29 Status: Acute Assessment and plan: with dysarthria, L-sided neglect, L hemiparesis, encephalopathy. No evidence of hemorrhagic conversion, but MRI does confirm a large territory CVA PO asa Does have a PFO, confirmed by echo - but no evidence of DVT, so parodoxical embolism is less likely.. Statin started. Will need to go to SNF. (5) Encephalopathy acute: Start date: 07/04/19 Start time: 16:36 Status: Acute Assessment and plan: Could be due to developing brain edema, possible progression of stroke, suspected aspiration pneumonia. Continue zosyn. D/c vanco (6) Left upper extremity swelling: Start date: 07/04/19 Start time: 16:36 Status: Acute Assessment and plan: DVT ruled out. Likely due to dependent edema (7) Obesity (BMI 35.0-39.9 without comorbidity): Start date: 07/04/19 Start time: 16:37 Status: Chronic Assessment and plan: when/if patient is able, he should attempt to lose weight. (8) Aspiration pneumonia: Start date: 07/04/19 Start time: 16:37 Status: Suspected Assessment and plan: Suspected, based on noticed dysarthria, elevated procalcitonin, patient's report of shortness of breath. Continue zosyn day 3. Continue modified diet. Monitor procalcitonin. (9) DVT prophylaxis: Start date: 07/04/19 Start time: 16:37 Status: Acute Assessment and plan: heparin SC (10) Discharge planning issues: Start date: 07/04/19 Start time: 16:37 Status: Acute Assessment and plan: Full code Palliative care consulted to discuss goals of care - Family has agreed to DNR/DNI Anticipate SNF on discharge. (11) Hydronephrosis, left: Start date: 07/04/19 Start time: 16:38 Status: Acute Assessment and plan: Begum catheter in place. Urology consulted. Continue to monitor. Above case discussed with Dr. Toth who is in agreement. Subjective Subjective Patient reports: still having pain Interval history since last seen: Worsening pain today. Started on Morphine. Dr. Anguiano consulted, ordered fentanyl patch. Continue to monitor pain status. Lopressor BID for BP. Urology consulted and neurology to see patient today. Denies CP, SOB, N/v/D. Exam Narrative Exam Narrative: General: Elderly obese male, anxious about wanting to have something to drink, cannot use straw, does take teaspoons of fluids easily, arousable,; dysarthric; profound L-sided neglect HEENT: dry MM, asking for water repeatedly, no facial droop but weakness to his oral muscles, cannot suck straw even with cueing Eyes: extraocular movements abnormal, severe Left patricio-neglect, keeps his head turned to the right Heart: RRR, no m/r/g Lungs: CTAB/diminished, Neuro: confused, unable to have full neuro testing, obvious left patricio neglect Abdomen: soft, nontender,obese, no obvious masses, +BS wnl Extremities: Trace edema BLE's and LUE. skin: no obvious bruises or lacerations psych: appears anxious, needs reassurance Objective Objective Clinical Data: Abnormal lab results 07/04/19 07/04/19 Range/Units 07:15 07:15 RBC 4.07 L (4.50-6.00) m/cumm Hgb 12.6 L (13.5-17.5) g/dL Hct 38.3 L (40.0-50.0) % RDW 15.7 H (11.8-14.1) % MPV 11.5 H (8.0-11.0) fL Absolute Neutrophils 7.67 H (1.2-6.7) k/cumm Absolute Lymphocytes 0.57 L (1.2-3.4) k/cumm Sodium 146 H (136-145) mmol/L Chloride 115 H (98-107) mmol/L Carbon Dioxide 18.4 L (21.0-32.0) mmol/L Anion Gap 12.6 H (3-11) mmol/L BUN 39 H (7-18) mg/dL Creatinine 2.46 H (0.70-1.30) mg/dL Glucose 120 H (74-106) mg/dL Calcium 7.7 L (8.5-10.1) mg/dL Vital Signs Temperature 37.1 C 07/04/19 11:12 Temperature Source Tympanic 07/04/19 11:12 Pulse 52 L 07/04/19 11:12 Pulse Rhythm Irregular 07/04/19 12:52 Pulse 94 H 07/01/19 00:01 Respiratory Rate 22 07/04/19 11:12 Respiratory Effort 07/04/19 12:52 Respiratory Depth Normal 07/04/19 12:52 Respiratory Pattern Normal 07/04/19 12:52 Blood Pressure 154/102 H 07/04/19 11:12 Blood Pressure Mean 105 07/01/19 00:01 Pulse Oximetry 96 07/04/19 11:12 Oxygen Delivery Method Room Air 07/04/19 11:12 Oxygen Flow Rate 0 07/04/19 11:12 Fraction of Inspired Oxygen (FIO2) 21 07/04/19 09:59 Pain Level 8 07/04/19 14:58 Comment Per monitor pt's pulse is 78 bpm, but on palpation it was 46 bpm. 07/03/19 11:05 Intake & Output 07/03/19 07/04/19 07/04/19 23:59 11:59 23:59 Intake Total 1130 / 2580 1862.5 / 1922.5 60 / 1922.5 Output Total 875 / 1050 175 / 1050 Balance 1130 / 2580 987.5 / 872.5 -115 / 872.5 Weight 105 kg Intake: IV 1100 / 2450 1382.5 / 1382.5 Oral 30 / 130 480 / 540 60 / 540 Output: Urine 875 / 1050 175 / 1050 Other: Urine Color Dark Carmelita Dark Carmelita Yellow Urine Appearance Clear Clear Clear Urine Odor None Comment pt grossly incontinent Voiding Methods Diaper Indwelling Catheter Incontinent Laboratory Results WBC 9.05 k/cumm (4.4-10.8) 07/04/19 07:15 RBC 4.07 m/cumm (4.50-6.00) L 07/04/19 07:15 Hgb 12.6 g/dL (13.5-17.5) L 07/04/19 07:15 Hct 38.3 % (40.0-50.0) L 07/04/19 07:15 MCV 94.1 fL (80-95) 07/04/19 07:15 MCH 31.0 pg (27.0-33.0) 07/04/19 07:15 MCHC 32.9 g/dL (32.0-36.0) 07/04/19 07:15 RDW 15.7 % (11.8-14.1) H 07/04/19 07:15 Plt Count 190 x1000/uL (130-400) 07/04/19 07:15 MPV 11.5 fL (8.0-11.0) H 07/04/19 07:15 Immature Gran % 0.2 % 07/04/19 07:15 Neutrophils % 84.8 07/04/19 07:15 Lymphocytes % 6.3 07/04/19 07:15 Monocytes % 7.5 07/04/19 07:15 Eosinophils % 1.0 07/04/19 07:15 Basophils % 0.2 07/04/19 07:15 Absolute Neutrophils 7.67 k/cumm (1.2-6.7) H 07/04/19 07:15 Absolute Lymphocytes 0.57 k/cumm (1.2-3.4) L 07/04/19 07:15 Absolute Monocytes 0.68 k/cumm (0.11-0.7) 07/04/19 07:15 Absolute Eosinophils 0.09 k/cumm (0.0-0.7) 07/04/19 07:15 Absolute Basophils 0.02 k/cumm (0.0-0.2) 07/04/19 07:15 Differential Comment Plt morph reviewed 07/02/19 06:15 RBC Morphology Normal 07/02/19 06:15 PT 11.3 sec (9.3-11.0) H 06/30/19 21:24 INR 1.1 (0.9-1.1) 06/30/19 21:24 APTT 24.6 sec (21.0-31.4) 06/30/19 21:24 VBG pH 7.38 (7.35-7.45) 06/30/19 23:00 VBG pCO2 38 mm/Hg (34-47) 06/30/19 23:00 VBG pO2 36 mm/Hg (28-44) 06/30/19 23:00 VBG HCO3 22 mmol/L (22-28) 06/30/19 23:00 VBG Total CO2 19 mmol/L (22-29) L 06/30/19 23:00 VBG O2 Saturation 68 % (70-80) L 06/30/19 23:00 VBG Base Excess -3.1 mmol/L (-3-3) L 06/30/19 23:00 Sodium 146 mmol/L (136-145) H 07/04/19 07:15 Potassium 3.6 mmol/L (3.5-5.1) 07/04/19 07:15 Chloride 115 mmol/L (98-107) H 07/04/19 07:15 Carbon Dioxide 18.4 mmol/L (21.0-32.0) L 07/04/19 07:15 Anion Gap 12.6 mmol/L (3-11) H 07/04/19 07:15 BUN 39 mg/dL (7-18) H 07/04/19 07:15 Creatinine 2.46 mg/dL (0.70-1.30) H 07/04/19 07:15 Estimated GFR/1.73 m2 25.64 (mL/min/1.73m2) 07/04/19 07:15 Glucose 120 mg/dL (74-106) H 07/04/19 07:15 Hemoglobin A1c 5.6 % (3.8-5.6) 07/02/19 06:15 Lactate 1.2 mmol/L (0.6-1.4) 07/03/19 10:50 Calcium 7.7 mg/dL (8.5-10.1) L 07/04/19 07:15 Magnesium 2.0 mg/dL (1.8-2.4) 07/04/19 07:15 Total Bilirubin 1.9 mg/dL (0.2-1.0) H 07/01/19 05:25 AST 54 U/L (15-37) H 07/01/19 05:25 ALT 36 U/L (16-63) 07/01/19 05:25 Alkaline Phosphatase 67 U/L (46-116) 07/01/19 05:25 Creatine Kinase 135 U/L (39-308) 07/03/19 06:45 Troponin I 0.08 ng/Ml (<0.06) H* 07/01/19 05:25 NT-Pro-B Natriuret Pep 974 pg/mL (<300) H 06/30/19 21:24 Total Protein 6.8 g/dL (6.4-8.2) 07/01/19 05:25 Albumin 3.2 g/dL (3.4-5.0) L 07/01/19 05:25 Triglycerides 109 mg/dL (<150) 07/02/19 06:15 Total Cholesterol 116 mg/dL (<200) 07/02/19 06:15 LDL Cholesterol, Calc 63 mg/dL (<100) 07/02/19 06:15 HDL Cholesterol 32 mg/dL (40-60) L 07/02/19 06:15 Procalcitonin 0.3 ng/mL 07/02/19 08:35 TSH 1.79 uIU/mL (0.36-3.74) 07/02/19 06:15 Urine Color Yellow (Yellow) 07/02/19 08:45 Urine Clarity Clear (Clear) 07/02/19 08:45 Urine pH 6.0 (5-8) 07/02/19 08:45 Ur Specific [place] >= 1.030 (1.005-1.025) H 07/02/19 08:45 Urine Protein 30 mg/dL (Negative) H 07/02/19 08:45 Urine Ketones Trace mg/dL (Negative) H 07/02/19 08:45 Urine Blood Large (Negative) H 07/02/19 08:45 Urine Nitrite Negative (Negative) 07/02/19 08:45 Urine Bilirubin Negative (Negative) 07/02/19 08:45 Urine Urobilinogen 2.0 EU/dL (Up TO 0.2) H 07/02/19 08:45 Ur Leukocyte Esterase Negative (Negative) 07/02/19 08:45 Urine RBC >50 HPF (0-2) H 07/02/19 08:45 Urine WBC 0-2 HPF (0-5) 07/02/19 08:45 Ur Epithelial Cells Rare HPF (Negative) 07/02/19 08:45 Urine Crystals Rare triple phos HPF (Negative) 07/02/19 08:45 Urine Bacteria Rare HPF (Negative) 07/02/19 08:45 Urine Casts Negative LPF (Negative) 07/02/19 08:45 Urine Mucus Negative (Negative) 07/02/19 08:45 Urine Other (Negative) 07/02/19 08:45 Ur Culture Indicated? No 07/02/19 08:45 Urine Glucose Negative mg/dL (Negative) 07/02/19 08:45
--- NOTE | 2019-07-04 16:27 | NCONE_ITS ---
Date of service: 07/04/19 Time of Service: 16:27 Assessment and Plan Assessment and plan (1) Recurrent strokes: Status: Acute (2) Stroke due to stenosis of right middle cerebral artery: Status: Acute (3) Berto-neglect of left side: Status: Acute (4) Left hemiparesis: Status: Acute (5) Memory loss: Status: Acute (6) Dysphagia: Status: Acute Assessment and plan: Mr. Sosa is a 78 year-old, right-handed man with a history of prior strokes, HTN, HLD, and RYAN admitted with large right par lgyv-vweernvc-egbecvgh infarct manifested by left hemineglect, left hemiparesis, left thalamic pain syndrome, left homonymous hemianopsia, dysarthria, and dysphagia with diffuse cognitive changes including some aphasia and right visual field defects likely secondary to decompensation from previous infarcts. He has known extensive severe intracranial vascular disease, however, given the large infarct size, an atheroembolic or embolic etiology remain in the differential, especially in the setting of PFO - though DVT scans were normal. Given large infarct size, I would be hesitant to start anticoagulation or DAPT until after 2 weeks. I discussed further testing with GLORIA, but not sure that it would change treatment plan. Presuming ASA failure, treatment progression is either DAPT or the addition of anticoagulation. He has no definite findings to support full anticoagulation at this time - though we could pursue GLORIA as above. However, based on Compass trial, I would recommend treat ment with 81mg ASA daily + Xarelto 2.5mg BID for stroke prevention. Not to be started until 2 weeks after stroke to reduce risk of secondary hemorrhage. ADRs were discussed. Statin should be continued at d/c but would recommend reducing to 10mg daily at discharge. I think it also would be prudent to do 30 days of cardiac monitoring given mildly dilated LA which is suggestive of underlying afib and therefore would warrant full anticoagulation. Given severe intracranial atherosclerosis, would avoid hypotension. Keep SBP around 140 systolic chronically. 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 Would start gabapentin 300mg TID. Very poor prognosis for this gentlemen. Needs PT/OT/ST. (7) Thalamic pain syndrome: Status: Acute History of Present Illness History of Present Illness Chief Complaint: stroke Narrative: Handedness: right. HPI: Mr. Sosa is a 78 year-old man with a PMH of hypertension, hypothyroidism, overactive bladder with a history of ureteral stricture and stents, os teoarthritis, gout, anxiety, obstructive sleep apnea, nephrolithiasis, PFO, and prior strokes. I actually met Mr. Sosa in 2017 at which time he suffered an acute ischemic stroke to the left centrum semiovale manifested by expressive aphasia, dysarthria, dysphagia, right hemiparesis (arm and leg) and mild hemisensory loss. He made a fairly good recovery. He was not on antiplatelets at the time. He was instructed to take ASA and statin indefinitely. Etiology was felt to be due to intracranial vascular disease. He had a prior history of extensive bilateral strokes postoperatively in 2008 associated with PE and DVT with known PFO. There was a question of hypercoaguable state, but labs were repeated in 2017 and unremarkable. Mr. Sosa was admitted on 06/30/19 after he was found down at home, last seen 28+ hours prior. He was found to have left hemiparesis and left hemineglect. A CTH performed in the ER showed a large right hemisphere stroke. See work-up below. He was reportedly taking ASA at home, but we have no way to know if he was compliant. He stopped his statin at some point in the last 3 years. He cannot tell us when/why. However, his LDL cholesterol is excellent. He is being treated for aspiration pneumonia and rhabdomyolysis. He has been having increased pain throughout his left hemibody. Currently being treated with a fentanyl patch. Work-up: -CTH: subacute large right parietal infarct. I reviewed these images personally. -MRI brain w/o:acute/subacute right auksrof-zfnshjy-xvqynbinu infarct with old infarcts in the left parietal/occipital lobe, left cerebellum, and left basal ganglia. He has severe chronic white matter disease changes. There is no evidence of acute or prior hemorrhage. I reviewed these images personally. -CTA head and neck: diffuse atherosclerosis with severe diffuse intracranial disease and multiple areas of focal stenosis in the anterior and posterior circulations. I compared these images with his MRA head in 2017. Overall unchanged with small progression of disease. I reviewed these images personally. -TTE: EF 50-54%, mild LVH; no wall motion abnormalities; +PFO, mildly dilated LA -DVT scan: negative bilateral LE and LUE -Labs: A1c 5.6, LDL 63 -Tele: 1st degree heart block Consults Requesting physician: Belkis Toth Review of Systems All systems reviewed & are unremarkable except as noted in HPI and below PFSH Medical History (Updated 07/04/19 @ 22:29 by Ana Rivera MD) Deficient knowledge of feeding tube (Acute) Essential hypertension (Chronic) Goals of care, counseling/discussion (Acute) Berto-neglect of left side (Acute) Hyperlipidemia (Acute) Hypothyroid (Chronic) Obesity (BMI 35.0-39.9 without comorbidity) (Chronic) RYAN (obstructive sleep apnea) (Chronic) Palliative care patient (Acute) PFO (patent foramen ovale) (Chronic) Recurrent strokes (Acute) Right parietal lobe lesion (Acute) Stroke (Chronic) Surgical History (Updated 07/04/19 @ 22:03 by Ana Rivera MD) H/O lithotripsy (Acute) 1. Lithotripsy with right PCNL in 2008. 2. Right renal artery occlusion. S/P inguinal hernia repair (Acute) Family History Mother , age 91 from heart disease Heart disease CHF (congestive heart failure) Father , in his 50s from a heart attack Heart disease Acute myocardial infarction Brother , age 79, uncertain cause Alcohol abuse Smoker Brother No problems noted. Sister , of cancer ? type age about 80 No problems noted. Sister , about 80 from colon cancer Colon cancer Sister , had schizophrenia, in her late 70s, unsure COD Schizophrenia Son No problems noted. Daughter No problems noted. Daughter No problems noted. Social History Smoking/Tobacco Use Status: Never Alcohol Intake: current Alcohol Intake frequency: a few times a month Alcohol type: beer Drug use: Never Substance use type: does not use Caregiver/Support person: No Household members: none Housing: house Number of Children: 3 Communication Needs: Hard of Hearing and Corrective Lenses Education Level: high school Do you need help understanding health information?: Always current occupation: retired [employer] Sexually active: No What is your relationship status?: How often do you talk on the phone with friends or family?: twice per week How often do you get together with friends or relatives?: three or more times per week Panel score (0-1 are the most socially isolated patients): 1 What type of physical activity do you participate in: sedentary lifestyle Special allen needs: No Working smoke detector in home: Yes Fire extinguisher in home: Yes Do you feel safe at home: Yes Do you feel safe in your relationship?: Yes Additional Social history: Lives in house [place]. Daughter, Alexa, looks in regularly. Son Florin comes up from [facility] regularly. Daughter Opal visits every few months. 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 House had bedrooms and BR upstairs. Cannot return home. Family knows he will have to go to rehab at d/c. Visit Medication and Allergies Active Medications Generic Name Dose Route Start Last Admin Trade Name Freq PRN Reason Stop Dose Admin Acetaminophen 650 mg 06/30/19 23:47 07/04/19 09:36 Tylenol PO 650 mg Q4H PRN PRN Administration Acetaminophen 500 mg 07/01/19 00:47 Tylenol PO HS PRN PRN Al Hydrox/Mg Hydrox/Simethicone 30 ml 06/30/19 23:47 Mylanta Liquid PO Q2H PRN PRN Allopurinol 300 mg 07/01/19 08:30 07/04/19 08:37 Zyloprim PO 300 mg DAILY ULNA Administration Aspirin 325 mg 07/04/19 08:30 07/04/19 08:37 PO 325 mg DAILY LUNA Administration Atorvastatin Calcium 40 mg 07/03/19 20:00 07/03/19 19:34 Lipitor PO 40 mg QPM LUNA Administration Bisacodyl 10 mg 07/01/19 10:21 Dulcolax Suppository MS DAILY PRN PRN Carboxymethylcellulose Sodium 0 each 07/01/19 11:12 07/04/19 13:17 Refresh Plus Eye Drops OU 1 drp PRN PRN Administration Dimethicone/Zinc Oxide 0 gm 06/30/19 23:47 Murray Protect Cream TP PRN PRN Diphenhydramine HCl 25 mg 06/30/19 23:58 Benadryl PO HS PRN PRN Docusate Sodium 100 mg 06/30/19 23:47 Colace PO TID PRN PRN Heparin Sodium (Porcine) 5,000 units 07/01/19 00:00 07/04/19 08:39 SC 5,000 units Q8H LUNA Administration Hydralazine HCl 5 mg 07/01/19 15:39 Apresoline Injection IVP Q6H PRN PRN Sodium Chloride 1,000 mls @ 30 mls/hr 07/01/19 05:50 07/04/19 11:45 Saline 1000ml Bag IV 30 mls/hr [facility] Infusion Piperacillin Sod/Tazobactam 50 mls @ 100 mls/hr 07/02/19 14:00 07/04/19 14:30 Sod 3.375 gm/ Sodium Chloride IVPB 100 mls/hr Q6H LUNA Administration Protocol Levothyroxine Sodium 175 mcg 07/01/19 07:30 07/04/19 08:36 Levothroid PO 175 mcg DAILY@0730 LUNA Administration Magnesium Hydroxide 30 ml 06/30/19 23:47 Milk Of Magnesia PO DAILY PRN PRN Metoprolol Tartrate 2.5 mg 07/01/19 15:36 07/04/19 04:46 Lopressor Injection IVP 2.5 mg Q6H PRN PRN Administration Metoprolol Tartrate 25 mg 07/04/19 20:00 Lopressor PO BID [facility] Miscellaneous 1 each 07/07/19 12:00 Remove Patch TP Q72H [facility] Morphine Sulfate 1 mg 07/04/19 12:30 07/04/19 14:58 IVP 1 mg Q1H PRN PRN Administration Nystatin 0 gm 07/01/19 14:00 07/04/19 14:30 Mycostatin Powder TP 1 applic TID LUNA Administration Polyethylene Glycol 17 gm 06/30/19 23:47 Miralax PO DAILY PRN PRN Constipation Allergies amlodipine Allergy (Unverified 06/30/19 22:55) enalapril Allergy (Unverified 06/30/19 22:53) hydrochlorothiazide [From Hyzaar] Allergy (Unverified 06/30/19 22:54) losartan [From Hyzaar] Allergy (Unverified 06/30/19 22:54) meperidine [From Demerol] Adverse Reaction (Severe, Unverified 06/30/19 22:16) Other (See Comment) Exam Narrative Exam Narrative: Physical Exam: Gen: Patient of apparent stated age, moderate distress due to pain Head and face: no facial or cranial abnormalities Neck: Supple, no meningismus, no occipital tenderness CV: RRR, distant heart sounds Resp: CTA B/L Abd: soft, nontender, nondistended Ext: No edema. No clubbing or cyanosis. No bony deformity. Neuro Exam: Language: fluency appears intact; naming intact; had difficulty with repetition; able to follow one-step commands but not consistently Mental Status: AAOxself only, current events and fund of knowledge limited; distractable; Speech: mild-moderate dysarthria Cranial nerves: Funduscopy: not performed CN II: left HH/neglect; narrow window of vision on the right with partial R HH as well CN III, IV, : rightward gaze deviation; unable cross midline; pupils symmetric and reactive to light CN V: face sensation intact to PP CN VII: subtle left nasolabial fold flattening CN VIII: hearing intact CN IX, X: unable to test due to pt comprehension CN XI: unable to test due to pt comprehension CN XII: tongue at midline - had difficulty protruding it Sensory: withdraws to noxious stimuli in all extremities; left hemineglect Motor: bulk and tone intact. Moves R hemibody spontaneously, arm >leg; No spontaneous movements on the left. Would not comply with formal strength testing on the right. Reflexes: hyporeflexic throughout except in LLE which is slightly brisk; +L Babinski; Coordination: no ataxia Gait: not performed, not safe for now; Results Last Vital Signs Temp 37.1 C 07/04/19 11:12 Pulse 52 L 07/04/19 11:12 Resp 22 07/04/19 11:12 BP 154/102 H 07/04/19 11:12 Pulse Ox 96 07/04/19 11:12 Labs Result diagrams: 07/04/19 07:15 07/04/19 07:15 Labs: Laboratory Results - last 24 hr 07/04/19 07/04/19 07:15 07:15 WBC 9.05 RBC 4.07 L Hgb 12.6 L Hct 38.3 L MCV 94.1 MCH 31.0 MCHC 32.9 RDW 15.7 H Plt Count 190 MPV 11.5 H Immature Gran % 0.2 Neutrophils % 84.8 Lymphocytes % 6.3 Monocytes % 7.5 Eosinophils % 1.0 Basophils % 0.2 Absolute Neutrophils 7.67 H Absolute Lymphocytes 0.57 L Absolute Monocytes 0.68 Absolute Eosinophils 0.09 Absolute Basophils 0.02 Sodium 146 H Potassium 3.6 Chloride 115 H Carbon Dioxide 18.4 L Anion Gap 12.6 H BUN 39 H Creatinine 2.46 H Estimated GFR/1.73 m2 25.64 Glucose 120 H Calcium 7.7 L Magnesium 2.0
[2019-07-04] MEDS: Mylanta Suspension 30 ML CUP PO (18:42)
[2019-07-04] MEDS: HYDROmorphone 2 MG/ML VIAL 1 MG IVP (19:23)
--- NOTE | 2019-07-04 23:50 | NUR.NOTE ---
Fentanyl discontinued on JUN. Removed at this time.Nursing Note:
[2019-07-05] VITALS (11 sets, daily range): BP systolic 150–207; BP diastolic 84–128; PULSE 50–104; RESP 15–20; TEMP 36.3–37.7; O2SAT 91–97
[2019-07-05] MEDS: hydrALAZINE 20 MG/ML VIAL 5 MG IVP ×2 (00:27→08:13)
[2019-07-05] MEDS: Heparin 5,000 UNITS/ML VIAL 5000 UNITS SC ×3 (00:28→16:55)
[2019-07-05] MEDS: PIPERACILLIN/TAZO 3.375 GM in Normal Saline 50 ML IVPB ×4 (02:15→20:46)
[2019-07-05 07:17] LABS: HCT 41.3 % (40.0-50.0); HGB 13.6 g/dL (13.5-17.5); Mean Corp. HGB Concentration 32.9 g/dL (32.0-36.0); Mean Corpuscular Hemoglobin 30.7 pg (27.0-33.0); Mean Corpuscular Volume 93.2 fL (80-95); Mean Platelet Volume 11.6 fL (8.0-11.0); Platelet Count 181 x1000/uL (130-400); RBC 4.43 m/cumm (4.50-6.00); RBC Distribution Width 15.8 % (11.8-14.1); White Blood Cell Count 8.12 k/cumm (4.4-10.8)
[2019-07-05 07:28] LABS: BUN 39 mg/dL (7-18); CREATININE 2.41 mg/dL (0.70-1.30); Calcium 8.5 mg/dL (8.5-10.1); Chloride 113 mmol/L (98-107); Estimated GFR 26.26 (mL/min/1.73m2); Glucose 106 mg/dL (74-106); Potassium 4.1 mmol/L (3.5-5.1); Sodium 145 mmol/L (136-145)
[2019-07-05] MEDS: Aspirin 325 MG TAB PO (08:13)
[2019-07-05] MEDS: Metoprolol 25 MG TAB PO ×3 (08:13→20:37)
[2019-07-05] MEDS: Allopurinol 300 MG TAB PO (08:13)
[2019-07-05] MEDS: Gabapentin 300 MG CAP PO ×2 (08:13→20:37)
[2019-07-05] MEDS: Levothyroxine 175 MCG TAB PO (08:13)
[2019-07-05] MEDS: HYDROmorphone 2 MG/ML VIAL 1 MG IVP ×3 (08:30→20:37)
[2019-07-05] MEDS: Nystatin POWDER 60 GM JAR TP ×3 (08:38→17:11)
--- NOTE | 2019-07-05 08:54 | OT.INTREAT ---
Date of service: 07/05/19 Time of Service: 07:30 Occupational Therapy Notes Occupational Therapy Inpatient Treatment Note Date: 07/05/19 PRECAUTIONS: Fall, Standard SUBJECTIVE: Pt was sitting in bed, yelling for a kleenex when OT arrived. He states that he is in pain and is still presenting very hypersensitive this morning. His (L) arm is not positioned on pillow and is tucked into his side. OT places pts (L) UE on pillow. He has pain with any PROM/AROM but did tolerate this ok. OBJECTIVE: PAIN: 8/10 pain in whole body VITALS: BP in sitting position (R) UE 182/102 per WEIGHT ANALYST. WEIGHT ANALYST took BP in (L) UE which did indicate a higher BP. WEIGHT ANALYST did notify RN. BATHING: Sitting upright in bed with max (A) core support. Upper Body: (I) face with mod vc, pt attempted to wash (L) UE but was unable to follow multi-step commands. When washing hair pt was able to touch shower cap but required max (A) for performance. Pt had notable fatigue from washing face. GROOMING: Sitting in bed, Pt was able to bring his own tissue to his face. He had a slight nose bleed which OT did notify RN about. EATING: In seated position in bed pt was able to hold water cup with straw in his (R) UE and bring to mouth with tactile cues. He is easily distracted and when drinking requires minimal stimulus in the room in order to focus on swallowing. He did swallow too much which does present as a motor planning issue at this time. With minimal distractions pt is able to perform this. He is being seen by GAS OPERATIONS ANALYST. ASSESSMENT/PLAN: Pt was able to communicate better today verbally. He is still hypersensitive and notes increased pain with any ROM in both UE/LE. His (L) UE needs to be supported at all times. He has a (L) side neglect and this is becoming more apparent which is decreasing his functional (I). OT feels that pt would benefit from SNF due to his level of (A) for ADLs at this time. OT will continue to work with pt towards his functional goals established at initial evaluation. TREATMENT CODES/TIME: [id number], 40 minutes (07:30) Maia Hoyt, OTR/L [facility]
[2019-07-05 09:24] LABS: BE (Venous) -6.4 mmol/L (-3-3); HCO3 (Venous) 18 mmol/L (22-28); O2 Sat (Venous) 99 % (70-80); TCO2 (Venous) 16 mmol/L (22-29); pCO2 (Venous) 27 mm/Hg (34-47); pH (Venous) 7.43 (7.35-7.45); pO2 (Venous) 125 mm/Hg (28-44)
--- NOTE | 2019-07-05 10:16 | W.PM.PROGNOT ---
Date of Service Date of service: 07/05/19 Time of Service: 10:16 Assessment and Plan Assessment and plan (1) Thalamic pain syndrome: Status: Chronic Assessment and plan: is on gabapentin, renal dosing and fentanyl patch. will continue to monitor (2) Essential hypertension: Status: Chronic Assessment and plan: BP remains elevated. Will increase lopressor to TID and will add hydralazine d/t reported allergies to amlopidine, alejandra I, and ARB's (3) Rhabdomyolysis: Status: Resolved Assessment and plan: resolved. Qualifiers: Encounter type: initial encounter Rhabdomyolysis type: traumatic Qualified Code(s): T79.6XXA - Traumatic ischemia of muscle, initial encounter (4) RYAN (obstructive sleep apnea): Status: Chronic Assessment and plan: Continue CPAP with naps/HS (5) Acute right MCA stroke: Status: Acute Assessment and plan: stable and slowly improving with dysarthria, L-sided neglect, L hemiparesis, encephalopathy. No evidence of hemorrhagic conversion, but MRI does confirm a large territory CVA continue with PO asa Does have a PFO, confirmed by echo - but no evidence of DVT, so parodoxical embolism is less likely. Statin started. Will need to go to SNF. neurology consult pending. (6) Aspiration pneumonia: Status: Suspected Assessment and plan: respiratory status is stable. Continue zosyn day 4/5. Continue modified diet. (7) Hydronephrosis, left: Status: Acute Assessment and plan: Begum catheter in place. Urology consulted. Continue to monitor. (8) DVT prophylaxis: Status: Acute Assessment and plan: heparin sq 5000 units TID (9) Discharge planning issues: Status: Acute Assessment and plan: Palliative care consulted to discuss goals of care - Family has agreed to DNR/DNI Anticipate SNF on discharge. Subjective Subjective Interval history since last seen: blood pressures remain elevated. patient is tolerating po well. working with physical therapy. c/o low back pain and left wrist pain, this has been ongoing. Exam Narrative Exam Narrative: Exam Narrative: General: Elderly obese male, anxious about wanting to have something to drink, cannot use straw, does take teaspoons of fluids easily, arousable,; dysarthric; profound L-sided neglect HEENT: dry MM, asking for water repeatedly, no facial droop but weakness to his oral muscles, cannot suck straw even with cueing Eyes: extraocular movements abnormal, severe Left patricio-neglect, keeps his head turned to the right Heart: regular rate and rhythm, no murmurs Lungs: respirations even and unlabored, diminished throughout Neuro: confused, unable to have full neuro testing, obvious left patricio neglect Abdomen: soft, nontender,obese, no obvious masses, positive bowel sounds Extremities: Trace edema BLE's and LUE. skin: no obvious bruises or lacerations psych: appears anxious, needs reassurance Objective Objective Clinical Data: Abnormal lab results 07/05/19 07/05/19 07/05/19 Range/Units 07:03 07:03 09:14 RBC 4.43 L (4.50-6.00) m/cumm RDW 15.8 H (11.8-14.1) % MPV 11.6 H (8.0-11.0) fL VBG pCO2 27 L (34-47) mm/Hg VBG pO2 125 H (28-44) mm/Hg VBG HCO3 18 L (22-28) mmol/L VBG Total CO2 16 L (22-29) mmol/L VBG O2 Saturation 99 H (70-80) % VBG Base Excess -6.4 L (-3-3) mmol/L Chloride 113 H (98-107) mmol/L Carbon Dioxide 16.0 L (21.0-32.0) mmol/L Anion Gap 16.0 H (3-11) mmol/L BUN 39 H (7-18) mg/dL Creatinine 2.41 H (0.70-1.30) mg/dL Vital Signs Temperature 37.7 C H 07/05/19 07:55 Temperature Source Tympanic 07/05/19 07:55 Pulse 68 07/05/19 07:55 Pulse Rhythm Irregular 07/04/19 20:00 Pulse 94 H 07/01/19 00:01 Respiratory Rate 20 07/05/19 07:55 Respiratory Effort 07/04/19 20:00 Respiratory Depth Normal 07/04/19 20:00 Respiratory Pattern Normal 07/04/19 20:00 Blood Pressure 207/128 H 07/05/19 07:55 Blood Pressure Mean 105 07/01/19 00:01 Pulse Oximetry 97 07/05/19 07:55 Oxygen Delivery Method Room Air 07/05/19 07:55 Oxygen Flow Rate 0 07/05/19 07:55 Fraction of Inspired Oxygen (FIO2) 21 07/05/19 08:40 Pain Level 10 07/05/19 08:30 Comment 07/04/19 23:25 Intake & Output 07/04/19 07/04/19 07/05/19 11:59 23:59 11:59 Intake Total 1862.5 / 2442.5 580 / 2442.5 50 / 50 Output Total 875 / 1050 175 / 1050 950 / 950 Balance 987.5 / 1392.5 405 / 1392.5 -900 / -900 Weight 105 kg Intake: IV 1382.5 / 1482.5 100 / 1482.5 50 / 50 Oral 480 / 960 480 / 960 Output: Urine 875 / 1050 175 / 1050 950 / 950 Other: Urine Color Dark Carmelita Yellow Light Carmelita Urine Appearance Clear Clear Clear Urine Odor None Comment intact and patent Voiding Methods Indwelling Catheter Laboratory Results WBC 8.12 k/cumm (4.4-10.8) 07/05/19 07:03 RBC 4.43 m/cumm (4.50-6.00) L 07/05/19 07:03 Hgb 13.6 g/dL (13.5-17.5) 07/05/19 07:03 Hct 41.3 % (40.0-50.0) 07/05/19 07:03 MCV 93.2 fL (80-95) 07/05/19 07:03 MCH 30.7 pg (27.0-33.0) 07/05/19 07:03 MCHC 32.9 g/dL (32.0-36.0) 07/05/19 07:03 RDW 15.8 % (11.8-14.1) H 07/05/19 07:03 Plt Count 181 x1000/uL (130-400) 07/05/19 07:03 MPV 11.6 fL (8.0-11.0) H 07/05/19 07:03 Immature Gran % 0.2 % 07/04/19 07:15 Neutrophils % 84.8 07/04/19 07:15 Lymphocytes % 6.3 07/04/19 07:15 Monocytes % 7.5 07/04/19 07:15 Eosinophils % 1.0 07/04/19 07:15 Basophils % 0.2 07/04/19 07:15 Absolute Neutrophils 7.67 k/cumm (1.2-6.7) H 07/04/19 07:15 Absolute Lymphocytes 0.57 k/cumm (1.2-3.4) L 07/04/19 07:15 Absolute Monocytes 0.68 k/cumm (0.11-0.7) 07/04/19 07:15 Absolute Eosinophils 0.09 k/cumm (0.0-0.7) 07/04/19 07:15 Absolute Basophils 0.02 k/cumm (0.0-0.2) 07/04/19 07:15 Differential Comment Plt morph reviewed 07/02/19 06:15 RBC Morphology Normal 07/02/19 06:15 PT 11.3 sec (9.3-11.0) H 06/30/19 21:24 INR 1.1 (0.9-1.1) 06/30/19 21:24 APTT 24.6 sec (21.0-31.4) 06/30/19 21:24 VBG pH 7.43 (7.35-7.45) 07/05/19 09:14 VBG pCO2 27 mm/Hg (34-47) L 07/05/19 09:14 VBG pO2 125 mm/Hg (28-44) H 07/05/19 09:14 VBG HCO3 18 mmol/L (22-28) L 07/05/19 09:14 VBG Total CO2 16 mmol/L (22-29) L 07/05/19 09:14 VBG O2 Saturation 99 % (70-80) H 07/05/19 09:14 VBG Base Excess -6.4 mmol/L (-3-3) L 07/05/19 09:14 Sodium 145 mmol/L (136-145) 07/05/19 07:03 Potassium 4.1 mmol/L (3.5-5.1) 07/05/19 07:03 Chloride 113 mmol/L (98-107) H 07/05/19 07:03 Carbon Dioxide 16.0 mmol/L (21.0-32.0) L 07/05/19 07:03 Anion Gap 16.0 mmol/L (3-11) H 07/05/19 07:03 BUN 39 mg/dL (7-18) H 07/05/19 07:03 Creatinine 2.41 mg/dL (0.70-1.30) H 07/05/19 07:03 Estimated GFR/1.73 m2 26.26 (mL/min/1.73m2) 07/05/19 07:03 Glucose 106 mg/dL (74-106) 07/05/19 07:03 Hemoglobin A1c 5.6 % (3.8-5.6) 07/02/19 06:15 Lactate 1.0 mmol/L (0.6-1.4) 07/05/19 09:14 Calcium 8.5 mg/dL (8.5-10.1) 07/05/19 07:03 Magnesium 2.0 mg/dL (1.8-2.4) 07/05/19 07:03 Total Bilirubin 1.9 mg/dL (0.2-1.0) H 07/01/19 05:25 AST 54 U/L (15-37) H 07/01/19 05:25 ALT 36 U/L (16-63) 07/01/19 05:25 Alkaline Phosphatase 67 U/L (46-116) 07/01/19 05:25 Creatine Kinase 135 U/L (39-308) 07/03/19 06:45 Troponin I 0.08 ng/Ml (<0.06) H* 07/01/19 05:25 NT-Pro-B Natriuret Pep 974 pg/mL (<300) H 06/30/19 21:24 Total Protein 6.8 g/dL (6.4-8.2) 07/01/19 05:25 Albumin 3.2 g/dL (3.4-5.0) L 07/01/19 05:25 Triglycerides 109 mg/dL (<150) 07/02/19 06:15 Total Cholesterol 116 mg/dL (<200) 07/02/19 06:15 LDL Cholesterol, Calc 63 mg/dL (<100) 07/02/19 06:15 HDL Cholesterol 32 mg/dL (40-60) L 07/02/19 06:15 Procalcitonin 0.3 ng/mL 07/02/19 08:35 TSH 1.79 uIU/mL (0.36-3.74) 07/02/19 06:15 Urine Color Yellow (Yellow) 07/02/19 08:45 Urine Clarity Clear (Clear) 07/02/19 08:45 Urine pH 6.0 (5-8) 07/02/19 08:45 Ur Specific [place] >= 1.030 (1.005-1.025) H 07/02/19 08:45 Urine Protein 30 mg/dL (Negative) H 07/02/19 08:45 Urine Ketones Trace mg/dL (Negative) H 07/02/19 08:45 Urine Blood Large (Negative) H 07/02/19 08:45 Urine Nitrite Negative (Negative) 07/02/19 08:45 Urine Bilirubin Negative (Negative) 07/02/19 08:45 Urine Urobilinogen 2.0 EU/dL (Up TO 0.2) H 07/02/19 08:45 Ur Leukocyte Esterase Negative (Negative) 07/02/19 08:45 Urine RBC >50 HPF (0-2) H 07/02/19 08:45 Urine WBC 0-2 HPF (0-5) 07/02/19 08:45 Ur Epithelial Cells Rare HPF (Negative) 07/02/19 08:45 Urine Crystals Rare triple phos HPF (Negative) 07/02/19 08:45 Urine Bacteria Rare HPF (Negative) 07/02/19 08:45 Urine Casts Negative LPF (Negative) 07/02/19 08:45 Urine Mucus Negative (Negative) 07/02/19 08:45 Urine Other (Negative) 07/02/19 08:45 Ur Culture Indicated? No 07/02/19 08:45 Urine Glucose Negative mg/dL (Negative) 07/02/19 08:45
[2019-07-05] MEDS: Acetaminophen 325 MG TAB 650 MG PO ×2 (10:39→16:54)
[2019-07-05] MEDS: fentaNYL 12 MCG PATCH TD (11:59)
--- NOTE | 2019-07-05 12:16 | CMPROGNOTE_ITS ---
- If Service Date Differs Date of service: 07/05/19 Time of Service: 12:16 Care Management Progress Note S/O:Tyler is sitting up in the chair today, he has a plan for pain control[facility], and [facility] would like updated clinicals. CM left a voicemail for son Florin to discuss the plan and update on his Fathers progress. Anticipate from interdiciplinary rounds Amandeep will be ready for discharge to SNF on Tuesday. A:Aamndeep is a 78 year old male admitted with CVA P: Tyler will be discharged to a SNF when medically ready. at PT recommendations. CM provided SNF information from with a listing of local facilities in [place]. [facility] had made a bed offer. Transportation to be determine pending disposition. CM will continue to follow and to support patient and family.
--- NOTE | 2019-07-05 12:37 | PT.INTREAT ---
Date of service: 07/05/19 PT Notes Visit Reasons: RIGHT CVA,RHABDOMYOLYSIS,HTN,PAF PT Inpatient Treatment Note 07/05/2019 SUBJECTIVE: You do not understand the pain I have. Where is the man who gives you the pill for pain? I do not care what happens if I do not move! OBJECTIVE: Telemetry monitoring continues to be in place. IV in the right UE. Left UE edema seems to be subsiding but is not warm nor erythematous. Left knee still mildly swollen and a bit warm today. BED MOBILITY: Rolling: Moderate assist of 3 Supine to sit:Moderate assist of 3 to with HOB elevated to 45 degrees Sit to supine: Moderate assist to of 3 with HOB elevated to 45 degrees Sit to stand: Maximum assist x 4. Excessive forward trunk leaning due to fear of falling. Tolerated x 2 reps for 30 seconds each time. Patient complained of severe pain all over his body throughout activity. Stand to sit: Maximum assist x 4. Excessive forward trunk leaning due to fear of falling. Patient complained of severe pain all over his body trhoughout activity. Bed to chair: Maximum assist x 4 with patient now able to pivot R foot minimally. Patient complained of severe pain all over his body trhoughout activity. For the afternoon session, patient was unable to stand up from bedside chair despite maximum assist of 4 and needed to be mechanically transferred back to the bed for safety. TRANSFERS/GAIT: Total assist STATIC SITTING: Mod A initially for the first 1-2 minutes but was able to assume an upright position for about 5 minutes without any issues of low back pain. patient was able to actively move L UE upon command to about 20 degrees of shoulder and elbow flexion but with considerabe pain. For the afternoon session, patient required maximum assist of 4 to tolerate upright sitting. ASSESSMENT: Patient continues to be aggravated with any kind of movement and adamantly has been refusing to be moved. Motivation is low. Motor apraxia along with hemianopsia both significantly limit patient ability to participate effectively during sessions. PLAN: Patient will need to be downgraded to use of mechanical lift for all transfer taask performance for patient and staff safety. Nurse Kurtz was notified of said recommendation. Will continue coordinate therapy sessions with nursing in order to ensure pre-medication for pain to maximize patient performance and participation. Will cotninue to update MD about hyperalgesia response to movement. Patient will [facility] for continued skilled physical therapy services in order to progress mobility level, strength, and balance in preparation for a safe discharge to home. TREATMENT CODE/TIME: Session 1--[id number] x 33 minutes beginning at 9:42 AM; Session 2--[id number] x 30 minutes beginning at 14:42 p.m.
--- NOTE | 2019-07-05 13:32 | PNE_ITS ---
Date of service: 07/05/19 Time of Service: 12:20 Speech Therpy Note Note: Daily TOE LINING CLOSER Treatment Note Subjective: Pt was up in recliner upon arrival being fed by ns student. Despite being in chair, pt was slouched very far down in an almost fully reclined position. Education/instruction provided to staff regarding safe swallow recommendations including proper positioning, assisting pt to feed self as well as using straw or open cup with liquids. Pt continues to c/o pain per staff, and was started on Fentanyl patch with results pending. Pts daughter in to visit midway through session. Education provided to family regarding nature of disorder and goals. Objective: Pt will manage least restrictive diet with no overt s/s aspiration and minimal s/s dysphagia when following safe swallow strategies with assistance. Assessment: Pt demonstrating increased coordination with oral motor movements today, with increased ability to round lips to straw and cup with decreased cues. Pt continues to do best when cup placed in hand and tactile cues given to bring to mouth. Pt did respond to TOE LINING CLOSER presenting both cup and straw today with decreased s/s apraxia. No overt s/s aspiration demonstrated with thin liquids today. Trialed puree via spoon however pt declined stating he wasnt hungry and just wanted water. Staff instructed in swallow protocol and verbalized understanding of recommendations. Plan: Continue per POC at this time.
--- NOTE | 2019-07-05 13:41 | UCONE_ITS ---
Date of service: 07/05/19 Time of Service: 13:41 Assessment and Plan Assessment and plan (1) Hydronephrosis, left: Status: Acute Assessment and plan: The 2 most likely etiologies would be either a recu rrent uric acid stone or a recurrent ureteral stricture. The best test to help us differentiate would be a noncontrast CT scan (is uric acid stones are radiolucent on plain film) If we do identify either a stone or a stricture that might need to be addressed surgically, given his previous issues in the postop period, I would think that it would be in the patient's best interest to have any procedure done at a tertiary care center. With the CT scan however, we can at least know if we are dealing with a stone or not. History of Present Illness History of Present Illness Chief Complaint: Left hydronephrosis Narrative: This is a 78-year-old gentleman with a rather complex urologic history. He has been under the care of Dr. Fritz Asif at [facility] and Dr. Declan Chaparro at [facility]. 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 He underwent percutaneous nephrolithotomy in 2008. On postoperative day #1 he suffered a pulmonary embolus with paradoxical emb olization via a patent foramen ovale which resulted in a stroke. He was then anticoagulated and developed renal bleeding at the nephrostomy tube site. Interventional radiology was needed to perform superselective embolization. In 2010, he developed left renal colic due to uric acid stones. He had a staged procedure in which she had a stent placed on 05/01/2011 and ureteroscopy on 05/20/2011. A discrete stricture was noted in the mid left ureter at the time of ureteroscopy the stricture was dilated with a balloon. He was followed with renal ultrasounds to ensure that hydronephrosis did not recur. His last renal ultrasound at [facility] was in July 2012. At that time there was no hydronephrosis but they did notice stones in the lower pole of the left kidney. An ultrasound from our facility in March 2013 showed the development of hydronephrosis on the left. Based on the ultrasound report, it looks as though the study was done for worsening renal function rather than for renal colic. He is now hospitalized with a recent stroke and rhabdomyolysis. His renal function has been worsening since his admission. He describes back pain, but he is not able to localize the pain to one side or the other. A renal ultrasound shows left-sided hydronephrosis which appears increased c ompared to this study in March 2013. I do not have access any studies between 2012 and now. He has not had any documented fevers Review of Systems Constitutional Constitutional: Denies chills and Denies fever(s) Cardiovascular Cardiovascular: Denies chest pain Respiratory Respiratory: Denies hemoptysis Gastrointestinal Gastrointestinal: Denies nausea and Denies vomiting [facility] Medical History (Updated 07/06/19 @ 10:44 by Kingsley Carias MD) Allodynia (Chronic) Deficient knowledge of feeding tube (Acute) DNI (do not intubate) (Acute) DNR (do not resuscitate) (Acute) Essential hypertension (Chronic) Goals of care, counseling/discussion (Acute) Berto-neglect of left side (Acute) Hyperlipidemia (Acute) Hypothyroid (Chronic) Left ureteral calculus (Acute) Obesity (BMI 35.0-39.9 without comorbidity) (Chronic) RYAN (obstructive sleep apnea) (Chronic) Palliative care patient (Acute) PFO (patent foramen ovale) (Chronic) POLST (Physician Orders for Life-Sustaining Treatment) (Acute) done and signed by DPOA on 07/04/19; son present Recurrent strokes (Acute) Right parietal lobe lesion (Acute) Stroke (Chronic) Surgical History (Updated 07/04/19 @ 22:03 by Ana Rivera MD) H/O lithotripsy (Acute) 1. Lithotripsy with right PCNL in 2008. 2. Right renal artery occlusion. S/P inguinal hernia repair (Acute) Family History Mother , age 91 from heart disease Heart disease CHF (congestive heart failure) Father , in his 50s from a heart attack Heart disease Acute myocardial infarction Brother , age 79, uncertain cause Alcohol abuse Smoker Brother No problems noted. Sister , of cancer ? type age about 80 No problems noted. Sister , about 80 from colon cancer Colon cancer Sister , had schizophrenia, in her late 70s, unsure COD Schizophrenia Son No problems noted. Daughter No problems noted. Daughter No problems noted. Social History Smoking/Tobacco Use Status: Never Alcohol Intake: current Alcohol Intake frequency: a few times a month Alcohol type: beer Drug use: Never Substance use type: does not use Caregiver/Support person: No Household members: none Housing: house Number of Children: 3 Communication Needs: Hard of Hearing and Corrective Lenses Education Level: high school Do you need help understanding health information?: Always current occupation: retired [employer] Sexually active: No What is your relationship status?: How often do you talk on the phone with friends or family?: twice per week How often do you get together with friends or relatives?: three or more times per week Panel score (0-1 are the most socially isolated patients): 1 What type of physical activity do you participate in: sedentary lifestyle Special allen needs: No Working smoke detector in home: Yes Fire extinguisher in home: Yes Do you feel safe at home: Yes Do you feel safe in your relationship?: Yes Additional Social history: Lives in house [place] of [place] farm. Daughter, Alexa, looks in regularly. Son Florin comes up from [facility] regularly. Daughter Opal visits every few months. He has a ELECTROPHONIC ENGINEER 2 x per week. House had bedrooms and BR upstairs. Cannot return home. Family knows he will have to go to rehab at d/c. Exam Narrative Exam Narrative: He does not appear septic or toxic He is able to provide a medical history, but he is difficult to keep on point His vital signs are documented elsewhere in the chart His abdomen shows no peritoneal signs A Begum catheter is in place and is draining clear urine I reviewed his most recent renal ultrasound. There is definite hydronephrosis on the left. Results Last Vital Signs Temp 37.4 C 07/05/19 11:49 Pulse 51 L 07/05/19 11:49 Resp 15 07/05/19 11:49 BP 161/88 H 07/05/19 11:49 Pulse Ox 95 07/05/19 11:49 Labs Result diagrams: 07/06/19 06:35 07/06/19 06:35 Labs: Laboratory Results - last 24 hr 07/05/19 07/05/19 07/05/19 07:03 07:03 09:14 WBC 8.12 RBC 4.43 L Hgb 13.6 Hct 41.3 MCV 93.2 MCH 30.7 MCHC 32.9 RDW 15.8 H Plt Count 181 MPV 11.6 H VBG pH VBG pCO2 VBG pO2 VBG HCO3 VBG Total CO2 VBG O2 Saturation VBG Base Excess Sodium 145 Potassium 4.1 Chloride 113 H Carbon Dioxide 16.0 L Anion Gap 16.0 H BUN 39 H Creatinine 2.41 H Estimated GFR/1.73 m2 26.26 Glucose 106 Lactate 1.0 Calcium 8.5 Magnesium 2.0 07/05/19 09:14 WBC RBC Hgb Hct MCV MCH MCHC RDW Plt Count MPV VBG pH 7.43 VBG pCO2 27 L VBG pO2 125 H VBG HCO3 18 L VBG Total CO2 16 L VBG O2 Saturation 99 H VBG Base Excess -6.4 L Sodium Potassium Chloride Carbon Dioxide Anion Gap BUN Creatinine Estimated GFR/1.73 m2 Glucose Lactate Calcium Magnesium
--- NOTE | 2019-07-05 14:20 | CHAPLAIN ---
Tyler was sitting up in his chair when I visited today. He often grimaced and said he was in pain. His daughter tired to reassure him that the staff was working to get his pain under control. I let Tyler know that his punch hand, Rev. Luis Manuel Yung, is not feeling well and will not be able to visit, but that he wanted Tyler to know that he is thinking of him. Luis Manuel has also been calling Tyler's son Florin and speaking with him.
[2019-07-05] MEDS: hydrALAZINE 10 MG TAB PO ×2 (14:57→20:37)
--- NOTE | 2019-07-05 17:09 | W.PM.PROGNOT ---
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 Sosa is a 78 year-old, right-handed man with a history of prior strokes, HTN, HLD, and RYAN admitted with large right vaksorh-sssjxisc-rocomdls infarct manifested by left hemineglect, left hemiparesis, left thalamic pain syndrome, left homonymous hemianopsia, dysarthria, and dysphagia with diffuse cognitive changes including some aphasia and right visual field defects likely secondary to decompensation from previous infarcts. He has known extensive severe intracranial vascular disease, however, given the large infarct size, an atheroembolic or cardioembolic etiology remain in the differential, especially in the setting of PFO - though DVT scans were normal. His stay is complicated by rhabdomyolysis, aspiration pneumonia, acute renal failure, and left hydronephrosis. 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 On 07/14/19, recommend addition of Xarelto 2.5mg BID + ASA 81mg daily based on Comp[facility] trial results. Pending renal status, not sure that we can apply this study to him. If CrCl does not improve, would instead initiate DAPT x30 days, then clopidogrel 75mg daily only after that. All of this is of course pending 30 day monitor above. -Avoid hypotension given severe intracranial stenosis. -Thalamic pain: Continue gabapentin. Based on current calculated CrCl/pharm recs, max dose of 300mg BID. Agree with fentanyl patch for further supplementation given dysphagia/risk of aspiration. Gabapentin can be increased once Cr improved. -Continue PT/OT/ST as tolerated. Limited by pain currently. Subjective Subjective Interval history since last seen: No events overnight. Gabapentin started last night, but he refused all meds. Got 300mg this am. No change in pain. Supplemented with Dilaudid and Fenatnyl patch. Cr on the rise. Found to have left hydronephrosis. Urology on board and further testing pending. ST saw today and swallowing/eating apraxia improved. Did not eat as much today. Attributed to pain. Exam Narrative Exam Narrative: Physical Exam: Constitutional: mild-mod acute distress in significant pain Neuro: MS/Language/Speech: slightly sleepy, mild dysarthria CN: continues to have right gaze preference with left HH; right visual field diminshed as well Sensory/Motor: left hemiparesis with left hemineglect Objective Objective Clinical Data: Abnormal lab results 07/05/19 07/05/19 07/05/19 Range/Units 07:03 07:03 09:14 RBC 4.43 L (4.50-6.00) m/cumm RDW 15.8 H (11.8-14.1) % MPV 11.6 H (8.0-11.0) fL VBG pCO2 27 L (34-47) mm/Hg VBG pO2 125 H (28-44) mm/Hg VBG HCO3 18 L (22-28) mmol/L VBG Total CO2 16 L (22-29) mmol/L VBG O2 Saturation 99 H (70-80) % VBG Base Excess -6.4 L (-3-3) mmol/L Chloride 113 H (98-107) mmol/L Carbon Dioxide 16.0 L (21.0-32.0) mmol/L Anion Gap 16.0 H (3-11) mmol/L BUN 39 H (7-18) mg/dL Creatinine 2.41 H (0.70-1.30) mg/dL Vital Signs Temperature 37.1 C 07/05/19 16:37 Temperature Source Tympanic 07/05/19 16:37 Pulse 67 07/05/19 16:37 Pulse Rhythm Irregular 07/05/19 12:06 Pulse 94 H 07/01/19 00:01 Respiratory Rate 17 07/05/19 16:37 Respiratory Effort Non-Labored 07/05/19 12:06 Respiratory Depth Normal 07/05/19 12:06 Respiratory Pattern Normal 07/05/19 12:06 Blood Pressure 184/84 H 07/05/19 16:37 Blood Pressure Mean 105 07/01/19 00:01 Pulse Oximetry 97 07/05/19 16:37 Oxygen Delivery Method Room Air 07/05/19 16:37 Oxygen Flow Rate 0 07/05/19 16:37 Fraction of Inspired Oxygen (FIO2) 21 07/05/19 08:40 Pain Level 10 07/05/19 16:54 Comment 07/04/19 23:25 Intake & Output 07/04/19 07/05/19 07/05/19 23:59 11:59 23:59 Intake Total 580 / 2442.5 1030 / 1030 Output Total 175 / 1050 1400 / 1400 Balance 405 / 1392.5 -370 / -370 Weight 106.7 kg Intake: IV 100 / 1482.5 470 / 470 Oral 480 / 960 560 / 560 Output: Urine 175 / 1050 1400 / 1400 Other: Urine Color Yellow [place] Urine Appearance Clear Sediment Clear Urine Odor None Comment intact and patent Laboratory Results WBC 8.12 k/cumm (4.4-10.8) 07/05/19 07:03 RBC 4.43 m/cumm (4.50-6.00) L 07/05/19 07:03 Hgb 13.6 g/dL (13.5-17.5) 07/05/19 07:03 Hct 41.3 % (40.0-50.0) 07/05/19 07:03 MCV 93.2 fL (80-95) 07/05/19 07:03 MCH 30.7 pg (27.0-33.0) 07/05/19 07:03 MCHC 32.9 g/dL (32.0-36.0) 07/05/19 07:03 RDW 15.8 % (11.8-14.1) H 07/05/19 07:03 Plt Count 181 x1000/uL (130-400) 07/05/19 07:03 MPV 11.6 fL (8.0-11.0) H 07/05/19 07:03 Immature Gran % 0.2 % 07/04/19 07:15 Neutrophils % 84.8 07/04/19 07:15 Lymphocytes % 6.3 07/04/19 07:15 Monocytes % 7.5 07/04/19 07:15 Eosinophils % 1.0 07/04/19 07:15 Basophils % 0.2 07/04/19 07:15 Absolute Neutrophils 7.67 k/cumm (1.2-6.7) H 07/04/19 07:15 Absolute Lymphocytes 0.57 k/cumm (1.2-3.4) L 07/04/19 07:15 Absolute Monocytes 0.68 k/cumm (0.11-0.7) 07/04/19 07:15 Absolute Eosinophils 0.09 k/cumm (0.0-0.7) 07/04/19 07:15 Absolute Basophils 0.02 k/cumm (0.0-0.2) 07/04/19 07:15 Differential Comment Plt morph reviewed 07/02/19 06:15 RBC Morphology Normal 07/02/19 06:15 PT 11.3 sec (9.3-11.0) H 06/30/19 21:24 INR 1.1 (0.9-1.1) 06/30/19 21:24 APTT 24.6 sec (21.0-31.4) 06/30/19 21:24 VBG pH 7.43 (7.35-7.45) 07/05/19 09:14 VBG pCO2 27 mm/Hg (34-47) L 07/05/19 09:14 VBG pO2 125 mm/Hg (28-44) H 07/05/19 09:14 VBG HCO3 18 mmol/L (22-28) L 07/05/19 09:14 VBG Total CO2 16 mmol/L (22-29) L 07/05/19 09:14 VBG O2 Saturation 99 % (70-80) H 07/05/19 09:14 VBG Base Excess -6.4 mmol/L (-3-3) L 07/05/19 09:14 Sodium 145 mmol/L (136-145) 07/05/19 07:03 Potassium 4.1 mmol/L (3.5-5.1) 07/05/19 07:03 Chloride 113 mmol/L (98-107) H 07/05/19 07:03 Carbon Dioxide 16.0 mmol/L (21.0-32.0) L 07/05/19 07:03 Anion Gap 16.0 mmol/L (3-11) H 07/05/19 07:03 BUN 39 mg/dL (7-18) H 07/05/19 07:03 Creatinine 2.41 mg/dL (0.70-1.30) H 07/05/19 07:03 Estimated GFR/1.73 m2 26.26 (mL/min/1.73m2) 07/05/19 07:03 Glucose 106 mg/dL (74-106) 07/05/19 07:03 Hemoglobin A1c 5.6 % (3.8-5.6) 07/02/19 06:15 Lactate 1.0 mmol/L (0.6-1.4) 07/05/19 09:14 Calcium 8.5 mg/dL (8.5-10.1) 07/05/19 07:03 Magnesium 2.0 mg/dL (1.8-2.4) 07/05/19 07:03 Total Bilirubin 1.9 mg/dL (0.2-1.0) H 07/01/19 05:25 AST 54 U/L (15-37) H 07/01/19 05:25 ALT 36 U/L (16-63) 07/01/19 05:25 Alkaline Phosphatase 67 U/L (46-116) 07/01/19 05:25 Creatine Kinase 135 U/L (39-308) 07/03/19 06:45 Troponin I 0.08 ng/Ml (<0.06) H* 07/01/19 05:25 NT-Pro-B Natriuret Pep 974 pg/mL (<300) H 06/30/19 21:24 Total Protein 6.8 g/dL (6.4-8.2) 07/01/19 05:25 Albumin 3.2 g/dL (3.4-5.0) L 07/01/19 05:25 Triglycerides 109 mg/dL (<150) 07/02/19 06:15 Total Cholesterol 116 mg/dL (<200) 07/02/19 06:15 LDL Cholesterol, Calc 63 mg/dL (<100) 07/02/19 06:15 HDL Cholesterol 32 mg/dL (40-60) L 07/02/19 06:15 Procalcitonin 0.3 ng/mL 07/02/19 08:35 TSH 1.79 uIU/mL (0.36-3.74) 07/02/19 06:15 Urine Color Yellow (Yellow) 07/02/19 08:45 Urine Clarity Clear (Clear) 07/02/19 08:45 Urine pH 6.0 (5-8) 07/02/19 08:45 Ur Specific [place] >= 1.030 (1.005-1.025) H 07/02/19 08:45 Urine Protein 30 mg/dL (Negative) H 07/02/19 08:45 Urine Ketones Trace mg/dL (Negative) H 07/02/19 08:45 Urine Blood Large (Negative) H 07/02/19 08:45 Urine Nitrite Negative (Negative) 07/02/19 08:45 Urine Bilirubin Negative (Negative) 07/02/19 08:45 Urine Urobilinogen 2.0 EU/dL (Up TO 0.2) H 07/02/19 08:45 Ur Leukocyte Esterase Negative (Negative) 07/02/19 08:45 Urine RBC >50 HPF (0-2) H 07/02/19 08:45 Urine WBC 0-2 HPF (0-5) 07/02/19 08:45 Ur Epithelial Cells Rare HPF (Negative) 07/02/19 08:45 Urine Crystals Rare triple phos HPF (Negative) 07/02/19 08:45 Urine Bacteria Rare HPF (Negative) 07/02/19 08:45 Urine Casts Negative LPF (Negative) 07/02/19 08:45 Urine Mucus Negative (Negative) 07/02/19 08:45 Urine Other (Negative) 07/02/19 08:45 Ur Culture Indicated? No 07/02/19 08:45 Urine Glucose Negative mg/dL (Negative) 07/02/19 08:45
[2019-07-05] MEDS: Normal Saline Flush 10 ML SYR (17:52)
[2019-07-05] MEDS: Atorvastatin 40 MG TAB PO (20:37)
[2019-07-06] MEDS: Heparin 5,000 UNITS/ML VIAL 5000 UNITS SC ×3 (00:31→16:58)
[2019-07-06] MEDS: HYDROmorphone 2 MG/ML VIAL 1 MG IVP ×4 (00:49→21:03)
[2019-07-06] MEDS: PIPERACILLIN/TAZO 3.375 GM in Normal Saline 50 ML IVPB ×4 (02:25→20:16)
[2019-07-06 04:05] VITALS: BP 192/99; PULSE 61; RESP 16; TEMP 37.2; O2SAT 93
[2019-07-06 05:10] VITALS: BP 181/93; PULSE 60; RESP 14; TEMP 37; O2SAT 95
[2019-07-06 07:16] VITALS: BP 192/99; PULSE 61; RESP 16; TEMP 37.2; O2SAT 93
[2019-07-06 07:25] LABS: Abs Immature Grans 0.04 k/cumm (0.0-0.09); Absolute Basophil Count 0.05 k/cumm (0.0-0.2); Absolute Eosinophil Count 0.45 k/cumm (0.0-0.7); Absolute Lymphocyte Count 0.71 k/cumm (1.2-3.4); Absolute Monocyte Count 0.71 k/cumm (0.11-0.7); Basophils % 0.6; Eosinophils % 5.3; HCT 40.1 % (40.0-50.0); HGB 13.3 g/dL (13.5-17.5); Immature Grans % 0.5 %; Lymphocytes % 8.3; Mean Corp. HGB Concentration 33.2 g/dL (32.0-36.0); Mean Corpuscular Hemoglobin 31.4 pg (27.0-33.0); Mean Corpuscular Volume 94.6 fL (80-95); Mean Platelet Volume 11.5 fL (8.0-11.0); Monocytes % 8.3; Platelet Count 230 x1000/uL (130-400); RBC 4.24 m/cumm (4.50-6.00); White Blood Cell Count 8.56 k/cumm (4.4-10.8)
[2019-07-06 07:40] LABS: Anion Gap 14.6 mmol/L (3-11); BUN 41 mg/dL (7-18); CO2 19.4 mmol/L (21.0-32.0); CREATININE 2.52 mg/dL (0.70-1.30); Calcium 8.6 mg/dL (8.5-10.1); Chloride 112 mmol/L (98-107); Estimated GFR 24.94 (mL/min/1.73m2); Glucose 102 mg/dL (74-106); Magnesium 2.2 mg/dL (1.8-2.4); Potassium 4.3 mmol/L (3.5-5.1); Sodium 146 mmol/L (136-145)
--- NOTE | 2019-07-06 07:40 | DI.CT_ITS ---
EXAM: CT ABDOMEN PELVIS WO CLINICAL HISTORY: H/O URIC ACID STONES AND URETERAL STRICTURE, ? LT URETERAL STONE TECHNIQUE: Noncontrast COMPARISON: CT BRAIN NECK CTA from 06/30/2019 US RENAL from 07/03/2019 FINDINGS: There is severe left hydronephrosis secondary to three adjacent stones in the left mid ureter. The largest is located more inferiorly and measures 7 millimeters in greatest dimension. The two other s tones measure 4-5 millimeters in size. There are several other nonobstructing stones at the lower po le of the left kidney. A metallic density is seen at the upper pole of the right kidney. There are a few small nonobstructing stones of the right kidney. There is no right hydronephrosis. A Begum ca theter is seen in the bladder. No bladder calculi are identified. The prostate is enlarged. The heart is enlarged. There is coronary artery calcification. The aorta is quite ectatic and shows moderate atherosclerotic change but no evidence of an aneurysm. There is respiratory motion at the lung bases. No infiltrate is seen. The liver, spleen, pancreas and adrenals are unremarkable. Smal l stones or sludge are noted in the gallbladder. There is no gallbladder wall thickening, abnormal d istention or biliary dilatation. There is diverticulosis of the lower descending and sigmoid colon b ut no evidence of diverticulitis. There is no evidence of appendicitis. There is no small bowel dil atation. No ascites is seen. There are no compression fractures. IMPRESSION: Severe left hydronephrosis secondary to three adjacent stones in the mid left ureter. Other nonobstr ucting stones are seen bilaterally.
[2019-07-06] MEDS: hydrALAZINE 10 MG TAB PO ×3 (08:18→20:16)
[2019-07-06] MEDS: Gabapentin 300 MG CAP PO ×2 (08:18→20:15)
[2019-07-06] MEDS: Allopurinol 300 MG TAB PO (08:18)
[2019-07-06] MEDS: Aspirin 325 MG TAB PO (08:19)
[2019-07-06] MEDS: Metoprolol 25 MG TAB PO ×2 (08:19→20:16)
[2019-07-06] MEDS: Levothyroxine 175 MCG TAB PO (08:19)
[2019-07-06] MEDS: Acetaminophen 325 MG TAB 650 MG PO ×2 (08:19→20:16)
[2019-07-06] MEDS: Nystatin POWDER 60 GM JAR TP ×3 (08:22→20:16)
--- NOTE | 2019-07-06 08:25 | DI.VRAD_ITS ---
PROCEDURE INFORMATION: Exam: CT Abdomen And Pelvis Without Contrast Exam date and time: 07/06/2019 7:48 AM Age: 78 years old Clinical indication: Condition or disease; Other: H/o uric acidic stones; Patient HX: H/o uric acid stones and ureteral stricture; Additional info: ? Left ureteral stone TECHNIQUE: Imaging protocol: Computed tomography of the abdomen and pelvis without contrast. COMPARISON: US RENAL 07/03/2019 11:20 AM FINDINGS: Limitations: Evaluation is somewhat limited by lack of IV contrast. There is also motion limitation. Lungs: The visualized lung bases demonstrate mild dependent atelectasis. Mediastinum: There is a small hiatal hernia. Liver: Grossly unremarkable. Gallbladder and bile ducts: No gallstones are evident, but ultrasound would be more sensitive. No gross biliary ductal dilatation. Pancreas: Grossly unremarkable. Spleen: Grossly unremarkable. Adrenals: Grossly unremarkable. Kidneys and ureters: There is severe left-sided hydronephrosis and moderate proximal left hydroureter with 3 adjacent stones in the mid ureter, largest measuring 7 x 5 x 5 mm. Beyond this, the ureter is not dilated, and no additional ureteral calculus is identified. Both kidneys contain nonobstructing stones as well. There is also some irregular curvilinear metallic radiodensity in the right kidney. No right-sided hydronephrosis or ureteral stone. Stomach and bowel: The unopacified small bowel is not significantly distended to suggest obstruction. Mild sigmoid colonic diverticulosis without evidence for diverticulitis. Appendix: The appendix appears normal where at least partially visualized, and there is no inflammatory change in the region. Intraperitoneal space: No free air or significant free fluid. Vasculature: Coronary artery calcifications are noted. The abdominal aorta is nonaneurysmal. Atherosclerotic vascular calcifications are noted. Lymph nodes: No gross pathologic lymphadenopathy. Bladder: The urinary bladder contains a Begum catheter. Reproductive: The prostate is large. Bones/joints: Degenerative changes involve the spine, sacroiliac joints and hips. Soft tissues: Small fat containing left inguinal hernia. IMPRESSION: 1. Severe left-sided hydronephrosis and moderate proximal left hydroureter secondary to 3 adjacent mid ureteral stones, largest measuring up to 7 mm. 2. Additional nonobstructing bilateral nephrolithiasis. 3. Irregular curvilinear metallic radiodensity in the right kidney, significance uncertain. 4. Small hiatal hernia. 5. Mild sigmoid colonic diverticulosis without evidence for diverticulitis. 6. Prostatomegaly. 7. Small fat containing left inguinal hernia. Dictated and Authenticated by: Calixto Gutierrez MD. Ordering:AUREA Wynn MD
--- NOTE | 2019-07-06 09:45 | OTTR_ITS ---
Date of service: 07/06/19 Time of Service: 09:10 Occupational Therapy Notes Occupational Therapy Inpatient Treatment Note Date: 07/06/19 PRECAUTIONS: Fall, Standard, DNR/DNI SUBJECTIVE: Pt was sitting in bed with total trunk support. His nose was bleeding and continued to have mucus come out multiple times throughout OT session. OT did notify RN who reported that that she would monitor this. Pt was agreeable to OT session and kept stating I'm better now that someone has come into my room, but I'm in pain. OBJECTIVE: PAIN: c/o pain through whole body with hypersensitivity. Pt reports a 8/10 pain FUNCTIONAL MOBILITY pt requires a max (A) rica lift to chair which was performed prior to OT arrival. BATHING: Sitting in bed pt was able to perform washing of face but requires THREE AFFILIATED to reach forehead. He is able to apply mild pressure and notes that this is bothersome to him. when placing (R) UE down back in position on bed he notes increased pain. ASSESSMENT/PLAN: This is the 2nd day that pt has had a nose bleed when OT arrived. OT did notify RN about this and she notes that she will monitor. Pts pain is limiting him in functional (I) in ADL/IADL routines. OT was able to position (L) UE on a pillow and notes that this was ok. OT positioned pts (L) UE to decrease contractures. OT will continue to work with pt for (I) in ADL/IADL routines as well as ROM to (L) UE to decrease contracture risk. TREATMENT CODES/TIME: 48902, 15 minutes (09:10) Maia Hoyt OTR/[facility]
[2019-07-06] MEDS: fentaNYL 25 MCG PATCH TD (10:08)
--- NOTE | 2019-07-06 10:40 | W.PM.PROGNOT ---
Date of Service Date of service: 07/06/19 Time of Service: 10:41 Assessment and Plan Assessment and plan (1) Hydronephrosis, left: Status: Acute Assessment and plan: It is hard for me to tell how much of his pain is related to the stones, but with his hydronephrosis, the stone certainly can be contributory. He is not behaving as if he is septic, but his renal function is elevated from its baseline. I would suggest a drainage procedure for his left kidney at a minimum. This could involve a cystoscopy and ureteral stent placement or even a percutaneous nephrostomy tube. After discussing the patient's medical history with our anesthesia providers, it is felt that he is not a surgical candidate here at our facility. I would suggest a transfer down to [facility] (where his previous stone procedures were accomplished). I had discussed the possibility with the patient and his daughter yesterday and they seemed agreeable at that time. The patient's daughter is not at the bedside right now. (2) Left ureteral calculus: Status: Acute Subjective Subjective Interval history since last seen: We were unable to obtain the patient's noncontrast CT scan until this morning. He remains afebrile. He continues to have pain in the back and elsewhere. Exam Narrative Exam Narrative: He is currently sleeping and I did not wake him I have had a chance to review his noncontrast CT scan. He has nonobstructing stones in the lower pole of the left kidney. There are also 3 stones in the left mid ureter with dilation of the ureter proximal to the stones and a more normal caliber distal to them. The largest stone measures 7 mm. I do not see them on the plain film portion of the CT, so I suspect they are again uric acid stones Objective Objective Clinical Data: Abnormal lab results 07/06/19 07/06/19 Range/Units 06:35 06:35 RBC 4.24 L (4.50-6.00) m/cumm Hgb 13.3 L (13.5-17.5) g/dL RDW 16.0 H (11.8-14.1) % MPV 11.5 H (8.0-11.0) fL Absolute Lymphocytes 0.71 L (1.2-3.4) k/cumm Absolute Monocytes 0.71 H (0.11-0.7) k/cumm Sodium 146 H (136-145) mmol/L Chloride 112 H (98-107) mmol/L Carbon Dioxide 19.4 L (21.0-32.0) mmol/L Anion Gap 14.6 H (3-11) mmol/L BUN 41 H (7-18) mg/dL Creatinine 2.52 H (0.70-1.30) mg/dL Vital Signs Temperature 37.2 C 07/06/19 07:16 Temperature Source Tympanic 07/06/19 07:16 Pulse 61 07/06/19 07:16 Pulse Rhythm Irregular 07/06/19 02:30 Pulse 94 H 07/01/19 00:01 Respiratory Rate 16 07/06/19 07:16 Respiratory Effort Non-Labored 07/06/19 02:30 Respiratory Depth Normal 07/06/19 02:30 Respiratory Pattern Normal 07/06/19 02:30 Blood Pressure 192/99 H 07/06/19 07:16 Blood Pressure Mean 105 07/01/19 00:01 Pulse Oximetry 93 L 07/06/19 07:16 Oxygen Delivery Method Cpap 07/06/19 07:16 Oxygen Flow Rate 0 07/05/19 17:59 Fraction of Inspired Oxygen (FIO2) 21 07/05/19 08:40 Pain Level 10 07/06/19 08:19 Comment 07/04/19 23:25 Intake & Output 07/05/19 07/05/19 07/06/19 11:59 23:59 11:59 Intake Total 1030 / 1130 100 / 1130 120 / 120 Output Total 1399 / 1950 Balance -370 / -820 -450 / -820 120 / 120 Weight 106.7 kg 106.9 kg Intake: IV 470 / 570 100 / 570 120 / 120 Oral 560 / 560 Output: Urine 1399 1950 Other: Urine Color [place] Dark [place] Urine Appearance Sediment Clear Clear Urine Odor None Comment intact and patent Laboratory Results WBC 8.56 k/cumm (4.4-10.8) 07/06/19 06:35 RBC 4.24 m/cumm (4.50-6.00) L 07/06/19 06:35 Hgb 13.3 g/dL (13.5-17.5) L 07/06/19 06:35 Hct 40.1 % (40.0-50.0) 07/06/19 06:35 MCV 94.6 fL (80-95) 07/06/19 06:35 MCH 31.4 pg (27.0-33.0) 07/06/19 06:35 MCHC 33.2 g/dL (32.0-36.0) 07/06/19 06:35 RDW 16.0 % (11.8-14.1) H 07/06/19 06:35 Plt Count 230 x1000/uL (130-400) 07/06/19 06:35 MPV 11.5 fL (8.0-11.0) H 07/06/19 06:35 Immature Gran % 0.5 % 07/06/19 06:35 Neutrophils % 77.0 07/06/19 06:35 Lymphocytes % 8.3 07/06/19 06:35 Monocytes % 8.3 07/06/19 06:35 Eosinophils % 5.3 07/06/19 06:35 Basophils % 0.6 07/06/19 06:35 Absolute Neutrophils 6.60 k/cumm (1.2-6.7) 07/06/19 06:35 Absolute Lymphocytes 0.71 k/cumm (1.2-3.4) L 07/06/19 06:35 Absolute Monocytes 0.71 k/cumm (0.11-0.7) H 07/06/19 06:35 Absolute Eosinophils 0.45 k/cumm (0.0-0.7) 07/06/19 06:35 Absolute Basophils 0.05 k/cumm (0.0-0.2) 07/06/19 06:35 Differential Comment Plt morph reviewed 07/02/19 06:15 RBC Morphology Normal 07/02/19 06:15 PT 11.3 sec (9.3-11.0) H 06/30/19 21:24 INR 1.1 (0.9-1.1) 06/30/19 21:24 APTT 24.6 sec (21.0-31.4) 06/30/19 21:24 VBG pH 7.43 (7.35-7.45) 07/05/19 09:14 VBG pCO2 27 mm/Hg (34-47) L 07/05/19 09:14 VBG pO2 125 mm/Hg (28-44) H 07/05/19 09:14 VBG HCO3 18 mmol/L (22-28) L 07/05/19 09:14 VBG Total CO2 16 mmol/L (22-29) L 07/05/19 09:14 VBG O2 Saturation 99 % (70-80) H 07/05/19 09:14 VBG Base Excess -6.4 mmol/L (-3-3) L 07/05/19 09:14 Sodium 146 mmol/L (136-145) H 07/06/19 06:35 Potassium 4.3 mmol/L (3.5-5.1) 07/06/19 06:35 Chloride 112 mmol/L (98-107) H 07/06/19 06:35 Carbon Dioxide 19.4 mmol/L (21.0-32.0) L 07/06/19 06:35 Anion Gap 14.6 mmol/L (3-11) H 07/06/19 06:35 BUN 41 mg/dL (7-18) H 07/06/19 06:35 Creatinine 2.52 mg/dL (0.70-1.30) H 07/06/19 06:35 Estimated GFR/1.73 m2 24.94 (mL/min/1.73m2) 07/06/19 06:35 Glucose 102 mg/dL (74-106) 07/06/19 06:35 Hemoglobin A1c 5.6 % (3.8-5.6) 07/02/19 06:15 Lactate 1.0 mmol/L (0.6-1.4) 07/05/19 09:14 Calcium 8.6 mg/dL (8.5-10.1) 07/06/19 06:35 Magnesium 2.2 mg/dL (1.8-2.4) 07/06/19 06:35 Total Bilirubin 1.9 mg/dL (0.2-1.0) H 07/01/19 05:25 AST 54 U/L (15-37) H 07/01/19 05:25 ALT 36 U/L (16-63) 07/01/19 05:25 Alkaline Phosphatase 67 U/L (46-116) 07/01/19 05:25 Creatine Kinase 135 U/L (39-308) 07/03/19 06:45 Troponin I 0.08 ng/Ml (<0.06) H* 07/01/19 05:25 NT-Pro-B Natriuret Pep 974 pg/mL (<300) H 06/30/19 21:24 Total Protein 6.8 g/dL (6.4-8.2) 07/01/19 05:25 Albumin 3.2 g/dL (3.4-5.0) L 07/01/19 05:25 Triglycerides 109 mg/dL (<150) 07/02/19 06:15 Total Cholesterol 116 mg/dL (<200) 07/02/19 06:15 LDL Cholesterol, Calc 63 mg/dL (<100) 07/02/19 06:15 HDL Cholesterol 32 mg/dL (40-60) L 07/02/19 06:15 Procalcitonin 0.3 ng/mL 07/02/19 08:35 TSH 1.79 uIU/mL (0.36-3.74) 07/02/19 06:15 Urine Color Yellow (Yellow) 07/02/19 08:45 Urine Clarity Clear (Clear) 07/02/19 08:45 Urine pH 6.0 (5-8) 07/02/19 08:45 Ur Specific [place] >= 1.030 (1.005-1.025) H 07/02/19 08:45 Urine Protein 30 mg/dL (Negative) H 07/02/19 08:45 Urine Ketones Trace mg/dL (Negative) H 07/02/19 08:45 Urine Blood Large (Negative) H 07/02/19 08:45 Urine Nitrite Negative (Negative) 07/02/19 08:45 Urine Bilirubin Negative (Negative) 07/02/19 08:45 Urine Urobilinogen 2.0 EU/dL (Up TO 0.2) H 07/02/19 08:45 Ur Leukocyte Esterase Negative (Negative) 07/02/19 08:45 Urine RBC >50 HPF (0-2) H 07/02/19 08:45 Urine WBC 0-2 HPF (0-5) 07/02/19 08:45 Ur Epithelial Cells Rare HPF (Negative) 07/02/19 08:45 Urine Crystals Rare triple phos HPF (Negative) 07/02/19 08:45 Urine Bacteria Rare HPF (Negative) 07/02/19 08:45 Urine Casts Negative LPF (Negative) 07/02/19 08:45 Urine Mucus Negative (Negative) 07/02/19 08:45 Urine Other (Negative) 07/02/19 08:45 Ur Culture Indicated? No 07/02/19 08:45 Urine Glucose Negative mg/dL (Negative) 07/02/19 08:45
[2019-07-06 11:09] LABS: Uric Acid 4.4 mg/dL (3.5-7.2)
[2019-07-06 11:27] VITALS: BP 142/75; PULSE 47; RESP 17; TEMP 36.4; O2SAT 94
--- NOTE | 2019-07-06 11:35 | PT.INTREAT ---
Date of service: 07/06/19 Time of Service: 11:35 PT Notes Visit Reasons: RIGHT CVA,RHABDOMYOLYSIS,HTN,PAF PT Inpatient Treatment Note Date: 07/06/2019 SUBJECTIVE: Patient remains not fully cooperative and lacks motivation to participate in therapy. He continues to complain of significant level of pain all over and is critical about everybody who attempts to move him. Daughter Alexa was present throghout Pt session today and who assisted with providing water to her dad. OBJECTIVE: Telemetry monitoring continues to be in place. IV in the right UE. Left UE edema seems to be subsiding especially in the forearm area, is not warm nor erythematous. Left knee not as swollen and as warm today compared to yesterday. BED MOBILITY: Rolling: Maximum assist of 3 Supine to sit: Maximum assist of 3 to with HOB elevated to 45 degrees Sit to supine: Maximum assist to of 3 with HOB elevated to 45 degrees Sit to stand: Unable. Patient has been downgraded to the use of mechanical lift for all transfers to patient and staff safety. Stand to sit: Unable. Patient has been downgraded to the use of mechanical lift for all transfers to patient and staff safety. Bed to chair: Unable. Patient has been downgraded to the use of mechanical lift for all transfers to patient and staff safety. TRANSFERS/GAIT: Unable. STATIC SITTING: Patient required minimal to moderate assist of 3 to maintain edge of bed sitting for up to 20 minutes. Patient expressed how much hurt his been having despite current pain medication is been receiving. Despite a maximal verbal cueing patient is unable to actively move affected and unaffected upper/lower extremities due primarily to pain, spatial disorientation, motor apraxia, hemianopsia, and lack of motivation. ASSESSMENT: Hyperesthesia and hyperalgesia continue to limit patient participation and motivation. all standing activities are deferred due to patient refusal, high risk for falling, and staff safety. Patient continues to be aggravated with any kind of movement and adamantly has been refusing to be moved. Motivation is low. Motor apraxia along with hemianopsia both continue to significantly limit patient ability to participate effectively during sessions. PLAN: Reduce patient frequency to 1 time a day 7 days a week. Will continue coordinate therapy sessions with nursing in order to ensure pre-medication for pain to maximize patient performance and participation. Will continue to update MD about hyperalgesia response to movement. Patient will benefit from care home facility placement for continued skilled physical therapy services in order to progress mobility level, strength, and balance in preparation for a safe discharge to home. TREATMENT CODE/TIME: 9753 0 x 42 minutes beginning at 11:35 AM for 3 units. Thank you very much for this referral. Brooklyn Edwards PT, DPT, CLT [facility] Inpatient PT at [facility] CC:
--- NOTE | 2019-07-06 15:07 | W.NUTRFU ---
Date of service: 07/06/19 Time of Service: 15:08 Nutritional Follow up NOTE: Tyler has been NPO all day (07/06/19) for surgical procedure, possible transfer to [facility] [place] [place] today due to hydronephrosis. PO intake 07/05/19 on puree diet was 75% at all meals per nursing, taking ensure BID and met nutrient and fluid needs yesterday. Will continue to follow INFO PRINT PRESS OPERATOR recommendations and alter meal plan as needed for optimal intake. Will follow prn. Time Spent in Nutritional Counseling and Treatment: 0 time spent face to face
[2019-07-06] MEDS: Normal Saline Flush 10 ML SYR IVP ×2 (15:19→17:00)
[2019-07-06 15:50] VITALS: BP 165/82; PULSE 60; RESP 18; TEMP 36.7; O2SAT 97
--- NOTE | 2019-07-06 15:50 | W.PM.PROGNOT ---
Date of Service Date of service: 07/06/19 Time of Service: 15:50 Subjective Subjective Patient reports: pain is less and tolerating liquids well Interval history since last seen: patient with improved pain since fentanyl patch increase. working with physical therapy. Exam Const General: ill appearing chronically and lethargic Nutritional Appearance: obese Orientation: alert and awake Resp Effort & Inspection: normal respiratory effort and cough Neuro General: alert Objective Objective Clinical Data: Abnormal lab results 07/06/19 07/06/19 Range/Units 06:35 06:35 RBC 4.24 L (4.50-6.00) m/cumm Hgb 13.3 L (13.5-17.5) g/dL RDW 16.0 H (11.8-14.1) % MPV 11.5 H (8.0-11.0) fL Absolute Lymphocytes 0.71 L (1.2-3.4) k/cumm Absolute Monocytes 0.71 H (0.11-0.7) k/cumm Sodium 146 H (136-145) mmol/L Chloride 112 H (98-107) mmol/L Carbon Dioxide 19.4 L (21.0-32.0) mmol/L Anion Gap 14.6 H (3-11) mmol/L BUN 41 H (7-18) mg/dL Creatinine 2.52 H (0.70-1.30) mg/dL Vital Signs Temperature 36.4 C L 07/06/19 11:27 Temperature Source Tympanic 07/06/19 11:27 Pulse 47 L 07/06/19 11:27 Pulse Rhythm Irregular 07/06/19 02:30 Pulse 94 H 07/01/19 00:01 Respiratory Rate 17 07/06/19 11:27 Respiratory Effort Non-Labored 07/06/19 02:30 Respiratory Depth Normal 07/06/19 02:30 Respiratory Pattern Normal 07/06/19 02:30 Blood Pressure 142/75 H 07/06/19 11:27 Blood Pressure Mean 105 07/01/19 00:01 Pulse Oximetry 94 L 07/06/19 11:27 Oxygen Delivery Method Cpap 07/06/19 11:27 Oxygen Flow Rate 0 07/05/19 17:59 Fraction of Inspired Oxygen (FIO2) 21 07/06/19 12:17 Pain Level 8 07/06/19 11:27 Comment 07/04/19 23:25 Intake & Output 07/05/19 07/06/19 07/06/19 23:59 11:59 23:59 Intake Total 100 / 1130 860 / 860 Output Total 550 / 1950 Balance -450 / -820 860 / 860 Weight 106.9 kg Intake: IV 100 / 570 120 / 120 Oral 740 / 740 Output: Urine 550 / 1950 Other: Urine Color Dark Carmelita Dark Carmelita Urine Appearance Clear Clear Clear Comment catheter leaks around tube, despite repositioning attempt Laboratory Results WBC 8.56 k/cumm (4.4-10.8) 07/06/19 06:35 RBC 4.24 m/cumm (4.50-6.00) L 07/06/19 06:35 Hgb 13.3 g/dL (13.5-17.5) L 07/06/19 06:35 Hct 40.1 % (40.0-50.0) 07/06/19 06:35 MCV 94.6 fL (80-95) 07/06/19 06:35 MCH 31.4 pg (27.0-33.0) 07/06/19 06:35 MCHC 33.2 g/dL (32.0-36.0) 07/06/19 06:35 RDW 16.0 % (11.8-14.1) H 07/06/19 06:35 Plt Count 230 x1000/uL (130-400) 07/06/19 06:35 MPV 11.5 fL (8.0-11.0) H 07/06/19 06:35 Immature Gran % 0.5 % 07/06/19 06:35 Neutrophils % 77.0 07/06/19 06:35 Lymphocytes % 8.3 07/06/19 06:35 Monocytes % 8.3 07/06/19 06:35 Eosinophils % 5.3 07/06/19 06:35 Basophils % 0.6 07/06/19 06:35 Absolute Neutrophils 6.60 k/cumm (1.2-6.7) 07/06/19 06:35 Absolute Lymphocytes 0.71 k/cumm (1.2-3.4) L 07/06/19 06:35 Absolute Monocytes 0.71 k/cumm (0.11-0.7) H 07/06/19 06:35 Absolute Eosinophils 0.45 k/cumm (0.0-0.7) 07/06/19 06:35 Absolute Basophils 0.05 k/cumm (0.0-0.2) 07/06/19 06:35 Differential Comment Plt morph reviewed 07/02/19 06:15 RBC Morphology Normal 07/02/19 06:15 PT 11.3 sec (9.3-11.0) H 06/30/19 21:24 INR 1.1 (0.9-1.1) 06/30/19 21:24 APTT 24.6 sec (21.0-31.4) 06/30/19 21:24 VBG pH 7.43 (7.35-7.45) 07/05/19 09:14 VBG pCO2 27 mm/Hg (34-47) L 07/05/19 09:14 VBG pO2 125 mm/Hg (28-44) H 07/05/19 09:14 VBG HCO3 18 mmol/L (22-28) L 07/05/19 09:14 VBG Total CO2 16 mmol/L (22-29) L 07/05/19 09:14 VBG O2 Saturation 99 % (70-80) H 07/05/19 09:14 VBG Base Excess -6.4 mmol/L (-3-3) L 07/05/19 09:14 Sodium 146 mmol/L (136-145) H 07/06/19 06:35 Potassium 4.3 mmol/L (3.5-5.1) 07/06/19 06:35 Chloride 112 mmol/L (98-107) H 07/06/19 06:35 Carbon Dioxide 19.4 mmol/L (21.0-32.0) L 07/06/19 06:35 Anion Gap 14.6 mmol/L (3-11) H 07/06/19 06:35 BUN 41 mg/dL (7-18) H 07/06/19 06:35 Creatinine 2.52 mg/dL (0.70-1.30) H 07/06/19 06:35 Estimated GFR/1.73 m2 24.94 (mL/min/1.73m2) 07/06/19 06:35 Glucose 102 mg/dL (74-106) 07/06/19 06:35 Hemoglobin A1c 5.6 % (3.8-5.6) 07/02/19 06:15 Lactate 1.0 mmol/L (0.6-1.4) 07/05/19 09:14 Uric Acid 4.4 mg/dL (3.5-7.2) 07/06/19 06:35 Calcium 8.6 mg/dL (8.5-10.1) 07/06/19 06:35 Magnesium 2.2 mg/dL (1.8-2.4) 07/06/19 06:35 Total Bilirubin 1.9 mg/dL (0.2-1.0) H 07/01/19 05:25 AST 54 U/L (15-37) H 07/01/19 05:25 ALT 36 U/L (16-63) 07/01/19 05:25 Alkaline Phosphatase 67 U/L (46-116) 07/01/19 05:25 Creatine Kinase 135 U/L (39-308) 07/03/19 06:45 Troponin I 0.08 ng/Ml (<0.06) H* 07/01/19 05:25 NT-Pro-B Natriuret Pep 974 pg/mL (<300) H 06/30/19 21:24 Total Protein 6.8 g/dL (6.4-8.2) 07/01/19 05:25 Albumin 3.2 g/dL (3.4-5.0) L 07/01/19 05:25 Triglycerides 109 mg/dL (<150) 07/02/19 06:15 Total Cholesterol 116 mg/dL (<200) 07/02/19 06:15 LDL Cholesterol, Calc 63 mg/dL (<100) 07/02/19 06:15 HDL Cholesterol 32 mg/dL (40-60) L 07/02/19 06:15 Procalcitonin 0.3 ng/mL 07/02/19 08:35 TSH 1.79 uIU/mL (0.36-3.74) 07/02/19 06:15 Urine Color Yellow (Yellow) 07/02/19 08:45 Urine Clarity Clear (Clear) 07/02/19 08:45 Urine pH 6.0 (5-8) 07/02/19 08:45 Ur Specific Spring >= 1.030 (1.005-1.025) H 07/02/19 08:45 Urine Protein 30 mg/dL (Negative) H 07/02/19 08:45 Urine Ketones Trace mg/dL (Negative) H 07/02/19 08:45 Urine Blood Large (Negative) H 07/02/19 08:45 Urine Nitrite Negative (Negative) 07/02/19 08:45 Urine Bilirubin Negative (Negative) 07/02/19 08:45 Urine Urobilinogen 2.0 EU/dL (Up TO 0.2) H 07/02/19 08:45 Ur Leukocyte Esterase Negative (Negative) 07/02/19 08:45 Urine RBC >50 HPF (0-2) H 07/02/19 08:45 Urine WBC 0-2 HPF (0-5) 07/02/19 08:45 Ur Epithelial Cells Rare HPF (Negative) 07/02/19 08:45 Urine Crystals Rare triple phos HPF (Negative) 07/02/19 08:45 Urine Bacteria Rare HPF (Negative) 07/02/19 08:45 Urine Casts Negative LPF (Negative) 07/02/19 08:45 Urine Mucus Negative (Negative) 07/02/19 08:45 Urine Other (Negative) 07/02/19 08:45 Ur Culture Indicated? No 07/02/19 08:45 Urine Glucose Negative mg/dL (Negative) 07/02/19 08:45
--- NOTE | 2019-07-06 16:57 | DSE_ITS ---
Date of service: 07/06/19 Time of Service: 16:57 DS: Diagnosis Discharge Diagnosis (1) Hydronephrosis, left: Status: Acute Discharge Plan Disposition Patient Disposition: [facility] Condition: Serious Discharge Details Chief Complaint: CVA/TIA Clinical Impression: Stroke, Rhabdomyolysis Reason For Visit: RIGHT CVA,RHABDOMYOLYSIS,HTN,PAF Admit Date/Time: 06/30/19 23:48 Admit Provider: Calvin Contreras Attending Provider: Calvin Contreras Primary Care Provider: Tristen Lou ED Provider: Joe Julien Hospital Course Hospital Course: This is a 78-year-old gentleman who was transported to [facility] by EMS after being found on the floor lying in urine and feces by family members, estimated to be down for over a day. work up it the ED should an acute right MCA thrombotic stroke. He also was found to have rhabdomyolysis. He has no bruising or complaints of body aches. He denies any headache. He has had some return of his left lower extremity after lower extremity being flaccid upon admission and having some movement against gravity presently. He was reported to have possible atrial fibrillation in the field but this is not been manifested in the hospital with cardiac monitoring. He does have frequent unifocal PVCs. He did bump his troponin into the intermediate zone and this has remained stable. This is most likely a secondary event, he as a history of PFO. He was allowed permissive hypertension initially but he remained severely hypertensive so he was started on metoprolol 25 mg bid and added hydralazine 10 mg TID as he got bradycardic with increased beta noemy and he has allergies to amlodipine, enalapril, hctz and losartan. his blood pressures have been now maintained in the 140-160's systolic with HR 60's on this dosing. Hospital course complicated with worsening kidney injury, aspiration pneumonia and severe low back pain. His respiratory status has been stable, oxygenating well on room air. is on day 4 of zosyn. 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 neurology has been following and recommendations given for gabapentin with max dose of 300 mg BID d/t kidney functions, he was also requiring narcotics and he was started on a fentanyl patch. this better controlled his pain. his kidney functions continued to worsen and pain continued to be an issue, although improved on narcotics, so a CT of abd/pelvis was obtained which showed severe left hydronephrosis secondary to three adjacent stones in the mid left ureter. Other nonobstructing stones are seen bilaterally. Dr Carias was consulted and recommends transfer to tertiary care facility for possible, cystoscopy and uretral stone placement or even a percutaneous nephrostomy tube. Her case was discussed with urology at [facility] and he was accepted in transfer to services of Dr Bullock. Of note, he has been very emotionally labile, consistent with his right parietal stroke. He has little insight, due to both his personality, his dementia, and the part of his brain affected by his stroke. His left berto-neglect is severe at this time but continues to slowly improve. recommendations from neurology regarding stroke management: Treatment recomendations: -Stroke prevention: continue aspirin and atorvastatin 10mg HS. On 07/14/19, recommend addition of Xarelto 2.5mg BID + ASA 81mg daily based on Compass trial results. Pending renal status, not sure that we can apply this study to him. If CrCl does not improve, would instead initiate DAPT x30 days, then clopidogrel 75mg daily only after that. All of this is of course pending 30 day monitor above. -Avoid hypotension given severe intracranial stenosis. -Thalamic pain: Continue gabapentin. Based on current calculated CrCl/pharm recs, max dose of 300mg BID. Agree with fentanyl patch for further supplementation given dysphagia/risk of aspiration. Gabapentin can be increased once Cr improved. -Continue PT/OT/ST as tolerated. Limited by pain currently. he did have a palliative care consult which occurred with daughter, son and patient. He cannot make his own medical decisions at this time. His estranged is still his DPOA legally. His son, Florin, is his financial DPOA only. Dr Anguiano from palliative care will advise to the DPOA that he have his code status changed to DNR/DNI and that they not have a feeding tube placed at this time given his love of eating (the first pleasure that Florin mentioned, above his children....) and his desire to remain as independent as possible. He has been tolerating PO fluids and foods without difficulty. He currently remains a full code at this time. Home Meds and New Rx's Prescriptions: New atorvastatin [Lipitor] 40 mg Tablet 40 mg PO QPM Qty: 0 RF: 0 Continued levothyroxine 175 MCG tablet 175 mcg PO DAILY@0730 RF: 0 allopurinol 300 MG tablet 300 mg PO DAILY RF: 0 aspirin 325 MG tablet 325 mg PO DAILY RF: 0 diphenhydramine-acetaminophen [Tylenol PM Extra Strength] 25-500 mg Tablet 1 tab PO QHS PRNRF: 0 Discontinued potassium citrate 10 MEQ tablet extended release 1 tab PO HS RF: 0 polyethylene glycol 3350 17 GM powder in packet 17 gm PO DAILY PRN PRN (Reason: Constipation) RF: 0 irbesartan 150 MG tablet 75 mg PO DAILY Qty: 0 RF: 0 Discharge Instructions Activity:: rica Equipment/Supplies:: No Equipment Needed Diet:: As Tolerated Discharge Orders Discharge Orders: Discharge Order (Routine); Ordered 07/06/19 Ordered By: Jennifer Farrell DS: Summary Status at Discharge Functional status at discharge: bed bound (rica) Overall status at discharge: patient is not back to baseline Mental Status: mental status grossly normal and other (dementia, CVA but ) Speech and Movement: other (dysarthria some aphasia) Mood: other (dementia, CVA but ) Affect: anxious affect Exam Psych Mental Status: mental status grossly normal and other (dementia, CVA but ) Speech and Movement: other (dysarthria some aphasia) Mood: other (dementia, CVA but ) Affect: anxious affect DS: Data Vitals/I&O Vitals and I&O: Vital Signs Temperature 36.7 C 07/06/19 15:50 Temperature Source Tympanic 07/06/19 15:50 Pulse 60 07/06/19 15:50 Pulse Rhythm Irregular 07/06/19 11:45 Pulse 94 H 07/01/19 00:01 Respiratory Rate 18 07/06/19 15:50 Respiratory Effort Non-Labored 07/06/19 11:45 Respiratory Depth Normal 07/06/19 11:45 Respiratory Pattern Normal 07/06/19 11:45 Blood Pressure 165/82 H 07/06/19 15:50 Blood Pressure Mean 105 07/01/19 00:01 Pulse Oximetry 97 07/06/19 15:50 Oxygen Delivery Method Room Air 07/06/19 15:50 Oxygen Flow Rate 0 07/06/19 15:50 Fraction of Inspired Oxygen (FIO2) 21 07/06/19 12:17 Pain Level 8 07/06/19 11:27 Comment 07/04/19 23:25 Intake & Output 07/05/19 07/06/19 07/06/19 23:59 11:59 23:59 Intake Total 100 / 1130 860 / 860 Output Total 550 / 1950 Balance -450 / -820 860 / 860 Weight 106.9 kg Intake: IV 100 / 570 120 / 120 Oral 740 / 740 Output: Urine 550 / 1950 Other: Urine Color Dark Carmelita Dark Carmelita Urine Appearance Clear Clear Clear Comment catheter leaks around tube, despite repositioning attempt Data Completed and Pending Labs on day of discharge: Labs from last 24 hours 07/06/19 07/06/19 07/06/19 16:40 06:35 06:35 WBC 8.56 RBC 4.24 L Hgb 13.3 L Hct 40.1 MCV 94.6 MCH 31.4 MCHC 33.2 RDW 16.0 H Plt Count 230 MPV 11.5 H Immature Gran % 0.5 Neutrophils % 77.0 Lymphocytes % 8.3 Monocytes % 8.3 Eosinophils % 5.3 Basophils % 0.6 Absolute Neutrophils 6.60 Absolute Lymphocytes 0.71 L Absolute Monocytes 0.71 H Absolute Eosinophils 0.45 Absolute Basophils 0.05 PT Pending INR Pending APTT Pending Sodium Potassium Chloride Carbon Dioxide Anion Gap BUN Creatinine Estimated GFR/1.73 m2 Glucose Uric Acid 4.4 Calcium Magnesium 07/06/19 06:35 WBC RBC Hgb Hct MCV MCH MCHC RDW Plt Count MPV Immature Gran % Neutrophils % Lymphocytes % Monocytes % Eosinophils % Basophils % Absolute Neutrophils Absolute Lymphocytes Absolute Monocytes Absolute Eosinophils Absolute Basophils PT INR APTT Sodium 146 H Potassium 4.3 Chloride 112 H Carbon Dioxide 19.4 L Anion Gap 14.6 H BUN 41 H Creatinine 2.52 H Estimated GFR/1.73 m2 24.94 Glucose 102 Uric Acid Calcium 8.6 Magnesium 2.2 Preliminary micro results at discharge 07/01/19 20:23 Blood Culture - Preliminary Blood NO GROWTH 96 HOURS 07/01/19 20:15 Blood Culture - Preliminary Blood NO GROWTH 96 HOURS [facility] Medical History (Updated 07/06/19 @ 10:44 by Kingsley Carias MD) Allodynia (Chronic) Deficient knowledge of feeding tube (Acute) DNI (do not intubate) (Acute) DNR (do not resuscitate) (Acute) Essential hypertension (Chronic) Goals of care, counseling/discussion (Acute) Berto-neglect of left side (Acute) Hyperlipidemia (Acute) Hypothyroid (Chronic) Left ureteral calculus (Acute) Obesity (BMI 35.0-39.9 without comorbidity) (Chronic) RYAN (obstructive sleep apnea) (Chronic) Palliative care patient (Acute) PFO (patent foramen ovale) (Chronic) POLST (Physician Orders for Life-Sustaining Treatment) (Acute) done and signed by DPOA on 07/04/19; son present Recurrent strokes (Acute) Right parietal lobe lesion (Acute) Stroke (Chronic) Surgical History (Updated 07/04/19 @ 22:03 by Ana Rivera MD) H/O lithotripsy (Acute) 1. Lithotripsy with right PCNL in 2008. 2. Right renal artery occlusion. S/P inguinal hernia repair (Acute) Family History Mother , age 91 from heart disease Heart disease CHF (congestive heart failure) Father , in his 50s from a heart attack Heart disease Acute myocardial infarction Brother , age 79, uncertain cause Alcohol abuse Smoker Brother No problems noted. Sister , of cancer ? type age about 80 No problems noted. Sister , about 80 from colon cancer Colon cancer Sister , had schizophrenia, in her late 70s, unsure COD Schizophrenia Son No problems noted. Daughter No problems noted. Daughter No problems noted. Social History Smoking/Tobacco Use Status: Never Alcohol Intake: current Alcohol Intake frequency: a few times a month Alcohol type: beer Drug use: Never Substance use type: does not use Caregiver/Support person: No Household members: none Housing: house Number of Children: 3 Communication Needs: Hard of Hearing and Corrective Lenses Education Level: high school Do you need help understanding health information?: Always current occupation: retired [employer] Sexually active: No What is your relationship status?: How often do you talk on the phone with friends or family?: twice per week How often do you get together with friends or relatives?: three or more times per week Panel score (0-1 are the most socially isolated patients): 1 What type of physical activity do you participate in: sedentary lifestyle Special allen needs: No Working smoke detector in home: Yes Fire extinguisher in home: Yes Do you feel safe at home: Yes Do you feel safe in your relationship?: Yes Additional Social history: Lives in house [place] of [place] farm. Daughter, Alexa, looks in regularly. Son Florin comes up from [facility] regularly. Daughter Opal visits every few months. He has a DEHYDRATION PLANT OPERATOR 2 x per week. House had bedrooms and BR upstairs. Cannot return home. Family knows he will have to go to rehab at d/c.
[2019-07-06 17:00] LABS: INR 1.2 (0.9-1.1); PTT Activated 27.9 sec (21.0-31.4); Prothrombin Time 11.8 sec (9.3-11.0)
--- NOTE | 2019-07-06 17:01 | CMPROGNOTE_ITS ---
- If Service Date Differs Date of service: 07/06/19 Time of Service: 17:01 Care Management Progress Note S/O:Amandeep was lying in bed when CM met with him and his family. Dr. Carias saw Amandeep today and determined he has kidney stones and hydronephrosis and his left kidney needs drainage. He suggested either a cysto with stent placement or possible a percutaneous nephrostomy tube. Because of Amandeep's comorbidities it has been determined that he will need to be transferred to a tertiary care facility for the procedure. He has been accepted at [facility] and plans are underway to transfer him. Amandeep was still complaining of severe pain this morning and his provider increased the dose of his Fentanyl patch and Amandeep stated that he feels much better. Family updated by CM re: plans for transfer. A:Amandeep is a 78 year old male admitted with CVA on 06/30/19 P: Tyler will be discharged from [facility] and transferred to [facility] when a bed is available, likely later this evening. He will have a surgical intervention tomorrow. CM to continue to support patient, family until transfer. Amandeep has been accepted at [facility] and will likely go there when discharged from [facility].
[2019-07-06 19:21] VITALS: BP 165/94; PULSE 96; RESP 18; TEMP 37.3; O2SAT 96
[2019-07-06] MEDS: Atorvastatin 40 MG TAB PO (20:16)
--- NOTE | 2019-07-09 07:37 | OTDS_ITS ---
Date of service: 07/09/19 Time of Service: 07:38 Occupational Therapy Notes Occupational Therapy Inpatient Discharge Summary Date: 07/09/19 Dates of Service: 07/02/19-07/09/19 Referring Doctor: Belkis Toth MD OT Orders: Non-Urgent: Limited Ability Precautions: Fall, Standard PATIENT PROFILE/ADMITTING DIAGNOSIS: Pt is a 78 year old male who presented to the ER on 06/30/19 by EMS, after his son found him in his home on the floor. It was reported that he fell out of bed sometime within the 24-48 hours after his caregiver had left. Pt was admitted to [facility] for CVA/TIA with a dx of stroke/Rhabdomyolysis. Past Medical History- Medical History (Updated 06/30/19 @ 23:47 by Calvin Contreras) Stroke (Chronic) Social History/Home Situation: Pt lived in a private home in [place] and was recently from his who lives near by. He has a daughter who lives close, a son who lives parts exped[employer] nearby and another daughter who lives out of state. Pt is unable to give a lot information on the set up of his home, he does have a tub/shower with grab bars. He does verbalize that he had HH coming into his home to help him at times. In pts EMR it does state that he was functionally almost (I) prior to admission and pt was driving (I). He is retired. His bedroom is on the 2nd floor and he has 10 steps that he would have to climb to get to the top. His verbal communication is limited at this time with lack of tongue control. He is able to lift his index finger for yes or no questions. Equipment owned/DME: grab bars, cane SUBJECTIVE: NT OBJECTIVE: *This document serves as a summary of care, no skilled OT services provided for this documentation. ROM: RUE Able to bend elbow WNL, extend digits but is unable to actively flex digits without vc and min (A) L UE Pt has (L) shoulder protraction but states this is too painful. unable to actively perform shoulder flexion, elbow flexion/extension or clean in places operator strength. STRENGTH: RUE Stand Up Comedian strength is 4/5 LUE Stand Up Comedian strength is 3+/5 with vc and tactile (A) prior FUNCTIONAL MOBILITY/ADLS: Functional mobility including bed mobility is max (A) at this time. Pt was moved from bed to chair via rica lift. BATHING Pt was able to wash his face (I) otherwise he was max (A). DRESSING Unable to assess due to pts pain. Pt is tender to palpation and with decline in function OT also feels that per examination pt is max (A) at this time. GROOMING NT TOILETING NT EATING Pt was able to hold his own cup (I) and bring to lips. He utilized a stra w and required vc and tactile cues with support to (R) elbow. Pt had better control of the straw when he brought the cup to his mouth with his (R) UE on his own. He presents with decreased motor planning and a (L) side neglect. BALANCE: Static sitting Poor Dynamic Sitting Poor Static Standing Unable to assess Dynamic Standing Unable to assess ASSESSMENT: Patient is a 78-year-old male referred to occupational therapy services with diagnosis of stroke/rhabdomyolysis. Patient presents with clinical signs and symptoms consistent with dx, as demonstrated by the following impairment level findings: 1. Pain in (L) UE/LE 2. Pain in (R) UE/LE 3. Max (A) bed mobility 4. Max (A) functional mobility required for ADLs 5. Decreased verbal communication 6. Decreased gross and fine motor control of (B) UE 7. Decreased functional activity tolerance 8. Decreased strength in (B) UE 9. Decreased functional AROM in (B) UE 10. Decreased visual tracking Impairments are contributing to the following functional limitations: 1. Decreased sitting tolerance 2. Decreased fine motor and gross motor control of (B) UE 3. Max (A) functional mobility required for ADL/IADL routines 4. Max (A) ADL/IADL routines in lying position 5. Unable to perform bed mobility 6. Incontinent 7. Decreased cognitive processing Pt was seen for 5 skilled OT services. He was receptive to education but his pain was the biggest limiting factor. Pt was unable to perform any PROM/AROM and was easily distracted. His eating routine he could swallow water with increased (I). He was able to wash his own face, but otherwise was relatively max (A) for all ADLS/IADLs at this time. Pt was transferred to [facility] for further consultation on kidney stones. Pt will be discharged from skilled OT services at this time. GOALS- Not met 1. Transfers Mod (A) 2. Dressing Sitting in bed with mod (A) pt will be able to put on hospital gown 3. Bathing sitting in bed with max (A) set up pt will be able to (I) wash face and wash (B) UE and abdomen with mod (A) 4. Toileting on commode mod (A) 5. Eating sitting with mod (A) PLAN OF CARE/TREATMENT PLAN: Pt was transferred to [facility] for further consultation on Kidney stones. Pt was discharged from [facility] and is discharged from OT services at this time. DISCHARGE RECOMMENDATIONS Based on pts current functional (I) in ADLs/IADLs OT feels that pt would benefit from LTC vs. SNF. If pt does return home he would require 24 hour care. TREATMENT TIME/MINUTES/CODES N/A Maia Hoyt OTR/L [facility]
--- NOTE | 2019-07-09 11:34 | PT.INDS ---
Date of service: 07/09/19 PT Notes Visit Reasons: RIGHT CVA,RHABDOMYOLYSIS,HTN,PAF Inpatient Physical Therapy Discharge Summary Dates: 07/09/2019 Dates of Service: 07/01/2019 through 07/06/2019 This is a clinical summary of care provided on the duration of dates listed above. No charge was made in the completion of this documentation. Referring Doctor: Calvin Contreras MD PT Orders: PT CONSULT: Right CVA, rhabdomyolysis Precautions: Fall. Standard. Activity as tolerated Patient Profile/Admitting Diagnosis: A 78-year-old male who suffered a right CVA resulting in left hemiplegia admitted to the hospital yesterday PMHX: Right CVA with left hemiplegia, rhabdomyolosis, hypertension, hyperlipidemia, hypothyroidism Social History/Home Situation: Lives alone in a two-story house, with his , son, and daughter living nearby. His bedroom is on the second floor, and he needs to climb 10 steps. No steps into the house. He was driving and performing all of his ADLs independently Current Functional Limitations: Requires maximal assist with all bed mobility activities and is unable to stand or ambulate Equipment Owned/DME: Has a combo tub shower with a shower chair and flexible shower hose. He has grab bars around the tub. He generally uses a cane. Subjective: NT Objective: NT General Observation: NT Mental Status:NT Pain: NT ROM: Flaccid left UE/LE with hyperalgesia and hyperesthesia. Unable to test range of motion for right human LE due to complaint of pain. Strength: Flaccid left UE/LE with hyperalgesia and hyperesthesia. Unable to test range of motion for right human LE due to complaint of pain. Bed Mobility/Transfers: Rolling max assist of 3 with maximal verbal cueing for safety and sequence Supine to sit max assist of 3 with maximal verbal cueing for safety and sequence Sit to supine max assist of 3 with maximal verbal cueing for safety and sequence Sit to stand total assist Stand to sit total assist Bed to chair total assist Chair to bed total assist Gait: Unable due to complaint of pain and refusal to move Balance: Static Sitting: Poor Dynamic Sitting: Unable Static Standing: Unable Dynamic Standing: Unable Assessment: Per urologist's order, patient needed to transfer to a tertiary hospital at [facility] in order to address left hydronephrosis with possible cystoscopy and ureteral stone placement. Patient is a 78-year-old male referred to physical therapy services with the diagnosis of right CVA with left patricio-plegia/paresis, rhabdomyolysis, and left hydronephrosis. Patient's participation and mobility level for this episode of care have greatly been affected by patient's significant pain level, patient's level of motivation, motor apraxia, and spatial deficits. He remains requiring total assistance with all transfers and is unable to ambulate. Goals: Goals X1 week 1. Supine-Sit moderate assist NOT MET 2. Sit-Supine moderate assist NOT MET 3. Sit-Stand moderate assist with walker or with safety lifting device NOT MET 4. Stand-Sit moderate assist with walker NOT MET 5. Bed-Chair moderate assist with walker or with safety lifting device NOT MET 6. Chair-Bed moderate assist with walker or with safety lifting device NOT MET DISCHARGE RECOMMENDATIONS: Patient will benefit from retirement facility placement for continued skilled physical therapy services in order to progress mobility level, strength, and balance in preparation for a safe discharge to home. TREATMENT CODE/TIME: NC. Thank you very much for this referral. Brooklyn Edwards PT, DPT, CLT [facility] Inpatient PT at [facility]
== END 2019-07-06 21:52 | DRG 64 ==
LOC: ER 07-01 00:15 → MS 07-01 00:37
PROVIDERS: Nurse Practitioner Acute Care; Nurse Practitioner Family; Admitting Provider Family Medicine; Emergency Provider Student in an Organized Health Care Education/Training Program; PCP Internal Medicine; Visit Provider Internal Medicine
DX: I63.511 Cerebral infarction due to unspecified occlusion or stenosis of right middle cerebral artery (principal); J69.0 Pneumonitis due to inhalation of food and vomit; N17.9 Acute kidney failure, unspecified; N13.2 Hydronephrosis with renal and ureteral calculous obstruction; R41.4 Neurologic neglect syndrome; Q21.1 Atrial septal defect; G93.40 Encephalopathy, unspecified; G81.94 Hemiplegia, unspecified affecting left nondominant side; I63.411 Cerebral infarction due to embolism of right middle cerebral artery; R13.12 Dysphagia, oropharyngeal phase; H53.462 Homonymous bilateral field defects, left side; R45.86 Emotional lability; R47.1 Dysarthria and anarthria; I10 Essential (primary) hypertension; T79.6XXA Traumatic ischemia of muscle, initial encounter; W18.30XA Fall on same level, unspecified, initial encounter; R60.0 Localized edema; I49.3 Ventricular premature depolarization; M54.5 Low back pain; N20.0 Calculus of kidney; R06.02 Shortness of breath; F03.90 Unspecified dementia, unspecified severity, without behavioral disturbance, psychotic disturbance, mood disturbance, and anxiety; G89.0 Central pain syndrome; Z51.5 Encounter for palliative care; Z60.2 Problems related to living alone; E78.5 Hyperlipidemia, unspecified; E03.9 Hypothyroidism, unspecified; G47.33 Obstructive sleep apnea (adult) (pediatric); R26.2 Difficulty in walking, not elsewhere classified; E66.9 Obesity, unspecified; Z68.35 Body mass index [BMI] 35.0-35.9, adult; Z86.73 Personal history of transient ischemic attack (TIA), and cerebral infarction without residual deficits; N18.9 Chronic kidney disease, unspecified
CPT/HCPCS: 36410; 36415; 51702; 70496; 70498; 76770; 80048; 80053; 80061; 82550; 82805; 84145; 85027; 87040; 92526; 92610; 93005; 93306; 96360; 96361; 97163; 97167; 97530; 97535; 99222; 99223; 99232; 99233; 99239; 99253; 99255; 99291; NC; 70551; 71045; 74176; 81003; 81015; 83036; 83605; 83735; 83880; 84443; 84484; 84550; 85025; 85610; 85730; 87086; 93010; 93970; 93971; J0360; J1644; J2270; J2543; J3370; J3490

== ENCOUNTER → 2019-07-04 13:47 | Outpatient (BNVA) | payer MEDICARE, SELFPAY | PROVIDERS: PCP Internal Medicine; Referring Provider Internal Medicine; Visit Provider Psychiatry & Neurology Neurology | DX: R69 Illness, unspecified (principal) ==